=== PATIENT | female | born 1960 | race Caucasian/White ===

== ENCOUNTER 2019-09-07 00:32 | Inpatient (IN) | payer SELFPAY ==
[2019-09-07 00:50] LABS: Actual Bicarbonate (HCO3a) 23.6 mEq/L (22-28); Analyzer IN Cardio ER; Base Excess (BEa) -6.4 mEq/L (-2.0 to +3.0); Calcium, Ionized 1.23 mmol/L (1.12-1.30); Carboxyhemoglobin (COHb) 2.9 gm% (0.0-3.0); O2 Tension (PaO2) 100.3 mmHg (80.0-100.0); Potassium - ABG Lab 3.34 mmol/L (3.70-5.30)
[2019-09-07 00:52] LABS: CO2 Tension 65.8 mmHg (35.0-45.0); pH, Arterial 7.17 (7.35-7.45)
[2019-09-07 00:53] LABS: Puncture Site LRA
[2019-09-07 01:33] LABS: ALT (SGPT) 27 U/L (8-55); AST (SGOT) 44 U/L (5-34); Albumin 4.5 g/dL (3.5-5.0); Alkaline Phosphatase 104 U/L (40-110); Anion Gap 17 mmol/L (10-20); BUN (Urea Nitrogen) 15 mg/dL (9.8-20.1); Bilirubin, Total 0.3 mg/dL (0.2-1.2); Calc. Creatinine Clearance 0 mL/min (70-130); Calcium 9.5 mg/dL (7.8-10.44); Carbon Dioxide 23 mmol/L (22-29); Chloride 105 mmol/L (98-107); Estimated GFR-MDRD 58; Globulin 3.1 g/dL (2.4-3.5); Glucose 203 mg/dL (70-105); Magnesium 2.8 mg/dL (1.6-2.6); Potassium 3.6 mmol/L (3.5-5.1); Protein, Total 7.6 g/dL (6.0-8.3); Sodium 141 mmol/L (136-145)
[2019-09-07] MEDS ORDERED: Furosemide 40 MG TAB ONE (01:34)
[2019-09-07] MEDS ORDERED: Furosemide 40 MG/4 ML VIAL ONE (01:34)
[2019-09-07] MEDS ORDERED: Nitroglycerin 2% Ointment 1 INCH/1 GM Packet ONE (01:34)
[2019-09-07 01:39] LABS: Band 13 % (5-11); Hemoglobin 15.7 g/dL (12.0-16.0); Lymphocytes 18 % (21-51); MDiff Complete? YES; Mean Corpuscular HGB CONC 32.6 g/dL (32.0-36.0); Mean Corpuscular Hemoglobin 31.7 pg (27.0-31.0); Mean Corpuscular Volume 97.2 fL (78.0-98.0); Mean Platelet Volume 7.4 fL (7.4-10.4); Monocytes 5 % (0-10); Neutrophil 64 % (42-75); Platelet Count 319 thou/uL (130-400); RBC Distribution Width 12.2 % (11.5-14.5); Red Blood Cell (RBC) Count 4.95 mill/uL (4.20-5.40); White Blood Cell (WBC) Count 22.1 thou/uL (4.8-10.8)
[2019-09-07 01:54] LABS: CKMB 5.2 ng/mL (0-6.6)
[2019-09-07] MEDS ORDERED: cefTRIAXone\\ROCEPHIN 2 GM VIAL ONE (01:57)
[2019-09-07] MEDS ORDERED: Acetaminophen 325 MG TAB PO PRN (02:42)
[2019-09-07] MEDS ORDERED: Azithromycin 500 MG VIAL ONE (02:43)
--- NOTE | 2019-09-07 03:39 | HP ---
CHIEF COMPLAINT: Shortness of breath. HISTORY OF PRESENT ILLNESS: This patient is a 58-year-old female, who presented to the emergency department. The patient has a history of smoking a pack cigarettes per day. Says she had a heart attack about a year ago or so and was treated primarily at [facility]. She was sent home with 4 or 5 medications and an inhaler, but essentially ran out of money and did not continue on those medications. The patient was in her usual state of health until today when she woke feeling fine, but at some point in the afternoon developed onset of shortness of breath that became more severe to the point that she had to call an ambulance after several hours. On arrival, O2 saturation was 84%. She was in respiratory distress with tripoding. She was given magnesium and Solu-Medrol and started on BiPAP and transported to the hospital. The patient denies any fevers or chills. She denies any chest pains. Denies any ill contacts. Currently, she states she is actually feeling somewhat better than she did on her initial arrival. REVIEW OF SYSTEMS: All other systems reviewed. All were negative, except for those things mentioned in the history of present illness. Specifically, she denies fever. She denies any orthopnea; although, very difficult to get a straight answer on that as the patient frequently does sit sitting up because she is more comfortable and when she is lying, she is on her side rather than on her back, but it does not sound like she has significant orthopnea. PAST MEDICAL HISTORY: She does report having had a heart attack, treated at [facility] about a year ago. Says she was admitted to this hospital about 3 years ago, but has no record of that. She says she has never been admitted for her breathing per se. She does report some obesity. PAST SURGICAL HISTORY: None. FAMILY HISTORY: There is pervasive obesity within the family. Father had a brain tumor. SOCIAL HISTORY: The patient smokes a pack to a pack and half a day and has done so for 40 years. She was a heavy alcohol drinker until about 3 months ago. At that time, her son moved in with her and he has been monitoring her intakes and now reportedly has occasional whiskey with soft drinks. She denies drugs. She is not . She is a full code and her son would be her surrogate decision maker. ALLERGIES: NONE. MEDICATIONS: None. PHYSICAL EXAMINATION: VITAL SIGNS: Blood pressure is 130/90, pulse 96, respirations 22, O2 saturation 99% on BiPAP. Initial vital signs revealed a blood pressure of 141/13 with a pulse of 126. GENERAL APPEARANCE: Age-appropriate female, in no distress. She is obese. She is sitting up in the bed in the emergency department wearing the BiPAP. She is breathing relatively comfortably. Speaking in largely full sentences. HEENT: [place]AY[place]. She has no OP lesions. Dry oral mucosa. NECK: Supple and symmetric. HEART: Her heart is faintly heard over the sound of the apparatus, but no murmurs, gallops, or rubs are noted. LUNGS: Notable for scattered rales. No wheezing. Generally diminished. ABDOMEN: Obese, soft, nontender, and nondistended. Positive bowel sounds. No masses. No organomegaly. EXTREMITIES: Reveal chronic stasis dermatitis with 1 to 2+ pitting brawny edema. Pulses were not palpable. PSYCH: Normal affect and behavior. NEURO: Cranial nerves intact. Cognition intact. No evidence of any focal deficits. LABORATORY DATA: White count is 22.1, hemoglobin 15.7, platelets 319. PH 7.17, pCO2 65.8, and pO2 is 100.3. Sodium 141, potassium 3.6, chloride 25, CO2 23, BUN 15, creatinine 0.99, glucose 203, lactic acid 3.2, calcium 9.5, magnesium 2.8, total bilirubin 0.3, AST 44, ALT 27. Troponin is 0.211. BNP 138.6. Chest x-ray shows evidence of cardiomegaly and pulmonary edema. EKG shows some rightward axis deviation with no ST or T-wave changes. IMPRESSION AND PLAN: 1. Acute respiratory failure with hypoxia and hypercapnia. The patient will be maintained on respiratory support, admitted to [facility]. Pulmonary consult. 2. Congestive heart failure. The patient has evidence of significant peripheral edema and pulmonary edema on chest x-ray with substantial cardiomegaly. The patient has not been on treatment. We will continue with diuresis. Order an echocardiogram, ROOSEVELT inhibitor. 3. Chronic obstructive pulmonary disease exacerbation as manifest by the hypercapnia and acidosis. Continue with nebulizer treatments, Solu-Medrol, respiratory support. Pulmonary consult and antibiotics with Rocephin. 4. History of coronary disease per the patient's history. We will likely need to obtain records from [facility] in order to determine exactly what the scenario was with her cardiac condition. Suspect she was on beta blockers, ROOSEVELT inhibitors, aspirin, statin, and Lasix, although cannot confirm that. We will keep her on aspirin for now. 5. Leukocytosis secondary to demargination from Solu-Medrol given in the field. 6. Indeterminate troponin, likely [id number] myocardial infarction type 2 secondary to respiratory failure and heart failure exacerbation. We will continue to trend while keeping her on telemetry. 7. Lactic acidosis. The patient has a white count, tachycardia and lactic acidosis. The white count is due to the steroids. The tachycardia was due to some respiratory failure and the lactic acidosis is likely hypoperfusion from hypoxia. There is currently no evidence of specific infection to suggest sepsis. 8. Significant peripheral edema likely secondary to congestive heart failure. Job ID: [id number]
[2019-09-07 03:48] VITALS: BMI 48.5
[2019-09-07 05:11] LABS: Lactic Acid 1.6 mmol/L (0.5-2.2)
[2019-09-07 05:26] LABS: Troponin I 0.387 ng/mL (< 0.028)
[2019-09-07] MEDS: methylPREDNISolone Sod Succ 40 MG VIAL IVP SCH ×3 (05:30→18:22)
[2019-09-07] MEDS: Furosemide 40 MG/4 ML VIAL SLOW IVP SCH ×2 (05:30→14:25)
--- NOTE | 2019-09-07 07:45 | RAD ---
Exam: Chest one view HISTORY:Dyspnea Comparison: None FINDINGS: Cardiac silhouette:Cardiomegaly Aorta: Unremarkable Pulmonary vessels: Normal Costophrenic angles: Clear LUNGS: Diffuse interstitial and patchy alveolar opacities. Pneumothorax: None Osseous abnormalities: None IMPRESSION: 1. Possible congestive heart failure. 2. Superimposed interstitial/alveolar edema or infiltrate cannot be excluded. Continued surveillance is warranted.
[2019-09-07] MEDS ORDERED: Lisinopril 2.5 MG TAB PO SCH (09:00)
[2019-09-07] MEDS: Enoxaparin Sodium 40 MG/0.4 ML SYRINGE SC SCH (09:01)
[2019-09-07] MEDS: Aspirin 81 mg Enteric Coated Tablet PO SCH (09:02)
[2019-09-07 09:11] LABS: Critical Call Chem Troponin I RESULT DECREASING; Troponin I 0.377 ng/mL (< 0.028)
--- NOTE | 2019-09-07 15:24 | CON ---
DATE OF CONSULTATION: HISTORY OF PRESENT ILLNESS: Adrienne Mejias is a 58-year-old female. She is a smoker. She says she has an inhaler at home, but never has to use it. She had the sudden onset of shortness of breath, led to emergent transport to the hospital. She feels like once she started getting oxygen and nebulizer treatments she improved. She was transported on BiPAP apparently. She says she is feeling 100% better. PAST MEDICAL HISTORY: Remarkable for coronary artery disease. SOCIAL HISTORY: She is a pack and a half a day smoker. She has been a daily drinker, just cut back on her drinking. FAMILY HISTORY: Positive for cancer. REVIEW OF SYSTEMS: Otherwise negative. Specifically, she denies fever, chills, sweats, being around anyone who is sick. PHYSICAL EXAMINATION: VITAL SIGNS: Heart rate is 90, blood pressure is 167/87, respiratory rate is 20 , and oximetry is 97. HEENT: Pupils are equal. Sclerae are anicteric. NECK: Supple. No lymphadenopathy. LUNGS: Distant and clear. HEART: Regular rhythm. S1 and S2 are normal. ABDOMEN: Soft and nontender. EXTREMITIES: Without clubbing, cyanosis, or edema. LABORATORY DATA: White count 22.1, hemoglobin 15.7, and platelets 319. Sodium 141, potassium 3.6, chloride 105, bicarb 23, BUN 15, and creatinine 0.99. IMPRESSION: Probable chronic obstructive pulmonary disease exacerbation. Chest x-ray did not show any masses or infiltrates. Rapid improvement and rapid onset are concerning for a coronary ischemic event, especially with her history of ongoing tobacco in spite of having a heart attack 3 years ago. Chest x-ray is very underpenetrated. It is hard to say whether or not there is a component of pulmonary edema. I would recommend repeating a chest x-ray in the morning. The history of expulsive onset is more worrisome for coronary event, but a rapid improvement with nebulized treatments of BiPAP argues in the favor of lung problems. I will be happy to follow the other physicians caring for Ms. Mejias. An echocardiogram would be helpful. Surprisingly, her BNP was 138, but that may not have been dramatically elevated. This was related to transient coronary ischemia. She does appear to be a diabetic. We will follow. Check a chest x-ray in the morning. This is a 50 min consult with greater than 50% of the time spent on the unit for coordination of care. Job ID: [id number] MTDD
[2019-09-07] MEDS: Lisinopril 10 MG TAB PO SCH (20:28)
[2019-09-07] MEDS: hydrALAZINE 25 MG TAB PO SCH (20:29)
[2019-09-07] MEDS: Metoprolol Tartrate 25 MG TAB PO SCH (20:29)
[2019-09-08] MEDS: methylPREDNISolone Sod Succ 40 MG VIAL IVP SCH ×5 (00:29→23:54)
[2019-09-08] MEDS: cefTRIAXone\\ROCEPHIN 1 GM in Sodium Chloride 0.9% 100 ML IVPB SCH (01:24)
[2019-09-08 03:56] LABS: Anion Gap 16 mmol/L (10-20); BUN (Urea Nitrogen) 18 mg/dL (9.8-20.1); Calc. Creatinine Clearance 144 mL/min (70-130); Calcium 9.8 mg/dL (7.8-10.44); Carbon Dioxide 27 mmol/L (22-29); Chloride 98 mmol/L (98-107); Estimated GFR-MDRD 81; Glucose 162 mg/dL (70-105); Potassium 3.9 mmol/L (3.5-5.1); Sodium 137 mmol/L (136-145)
--- NOTE | 2019-09-08 05:38 | PRG ---
DATE OF SERVICE: 09/08/2019 SUBJECTIVE: Tammie Mejias remains stable. She is on room air. OBJECTIVE: VITAL SIGNS: Blood pressure 156/64, heart rate 66, respiratory rate 20. LUNGS: Unchanged. HEART: Unchanged. ABDOMEN: Unchanged. LABORATORY DATA: No new lab today. Her troponin peaked to 0.38. IMPRESSION: Status post sudden onset of respiratory distress. Chest x-ray is under penetrated, was suggestive of pulmonary edema. She has no history of asthma or COPD exacerbations in the past. When she had a heart attack years ago, she said she had shortness of breath , but it came on more gradually. She probably needs to have a cardiac workup prior to discharge. Overall, she appears to be stable. She has not had any fever to suggest this is an infectious process. Job ID: [id number]
[2019-09-08] MEDS: Furosemide 40 MG/4 ML VIAL SLOW IVP SCH ×2 (05:48→18:41)
[2019-09-08 08:27] LABS: #Lymphocytes 1.5 thou/uL (1.20-3.40); #Monocytes 0.4 thou/uL (0.11-0.59); #Neutrophils 10.9 thou/uL (1.40-6.50); %Basophils 0.1 % (0.0-1.0); %Eosinophils 0.1 % (0.0-10.0); %Lymphocytes 11.8 % (21.0-51.0); %Monocytes 3.1 % (0.0-10.0); %Neutrophils 84.9 % (42.0-75.0); Hemoglobin 15.3 g/dL (12.0-16.0); Mean Corpuscular HGB CONC 33.2 g/dL (32.0-36.0); Mean Corpuscular Hemoglobin 31.1 pg (27.0-31.0); Mean Corpuscular Volume 93.8 fL (78.0-98.0); Mean Platelet Volume 7.7 fL (7.4-10.4); Platelet Count 282 thou/uL (130-400); Red Blood Cell (RBC) Count 4.93 mill/uL (4.20-5.40); White Blood Cell (WBC) Count 12.9 thou/uL (4.8-10.8)
--- NOTE | 2019-09-08 08:46 | RAD ---
PORTABLE CHEST: DATE: 09/08/2019. PROVIDED CLINICAL HISTORY: Dyspnea. FINDINGS: Comparison 09/07/2019. Cardiac silhouette remains enlarged. Cardiac silhouette remains enlarged. Pr ominence of the pulmonary vasculature and pulmonary interstitium persists, improved with respect to p rior. No focal consolidation, pleural fluid, or pneumothorax apparent. IMPRESSION: Cardiomegaly and improved changes of congestive failure. POS: BARAK
[2019-09-08] MEDS: hydrALAZINE 25 MG TAB PO SCH ×3 (10:18→22:43)
[2019-09-08] MEDS: Metoprolol Tartrate 25 MG TAB PO SCH ×2 (10:19→22:44)
[2019-09-08] MEDS: Lisinopril 10 MG TAB PO SCH ×2 (10:19→22:43)
--- NOTE | 2019-09-08 10:42 | CON ---
DATE OF CONSULTATION: HISTORY OF PRESENT ILLNESS: The patient is a 58-year-old woman with a history of a myocardial infarction, who presented with acute onset of dyspnea. The patient states that approximately three years ago she was at [facility] and had a myocardial infarction. She did not apparently undergo an invasive evaluation. The patient unfortunately has not been compliant with followup and has not been taking any medications. The patient was in her usual state of health when she became acutely dyspneic. She denied having any chest discomfort. She presented to the emergency room markedly short of breath. PAST MEDICAL HISTORY: myocardial infarction. PAST SURGICAL HISTORY: Hemorrhoidectomy. MEDICATIONS: None. SOCIAL HISTORY: Smokes 1-2 packs per day. ALLERGIES: NO KNOWN DRUG ALLERGIES. REVIEW OF SYSTEMS: Ten-point system is otherwise unremarkable. FAMILY HISTORY: Strong family history of coronary artery disease. PHYSICAL EXAMINATION: GENERAL: Obese woman, in no acute distress. VITAL SIGNS: Blood pressure was 174/92. NECK: Showed no jugular venous distention. LUNGS: Clear to auscultation. HEART: Regular rate and rhythm. Normal S1 and S2 with a 3/6 systolic murmur. ABDOMEN: Nondistended. EXTREMITIES: Showed trace edema. VASCULAR: Radial pulses are 2+. LABORATORY RESULTS: Sodium is 137, potassium 3.9, chloride 98, bicarbonate 27, BUN 18, creatinine 0.74, glucose is 162. Troponin was 0.377. White blood cell count is 12.9, hemoglobin 15.3, hematocrit 40.2, and platelets are 282. Her EKG revealed normal sinus rhythm with Q-waves suggestive of a normal sinus rhythm, right bundle-branch block and Q-waves suggestive of previous anteroseptal infarct. IMPRESSION: 1. Dyspnea, possibly anginal equivalent. 2. Non-Q-wave myocardial infarction. 3. History of myocardial infarction. 4. Hypertension. 5. Obesity. 6. Noncompliance. PLAN: This patient presents with a non Q-wave myocardial infarction. At this time, we would highly recommend she proceed with a cardiac catheterization to evaluate the extent of her coronary artery disease. The patient is unclear whether she wishes to proceed. I have explained the life threatening consequences of her continuing noncompliance. The patient is highly advised to discontinue smoking. We will start the patient on medical therapy and proceed with invasive evaluation if the patient becomes agreeable. Job ID: [id number] [facility]
--- NOTE | 2019-09-08 11:08 | PDOC.HOSPP ---
- Subjective Encounter Date: 09/08/19 Encounter Time: 10:40 Subjective: sob is better no chest pain or palp is sitting on bed - Objective Vital Signs & Weight: Vital Signs (12 hours) Temp Pulse Resp BP Pulse Ox 09/08/19 10:19 178/104 H 09/08/19 10:18 83 178/104 H 09/08/19 07:46 100 09/08/19 07:22 66 16 99 09/08/19 07:20 98.4 F 09/08/19 00:09 90 16 98 Weight Weight 240 lb 4 oz Most Recent Monitor Data Heart Rate from ECG 66 NIBP 178/104 NIBP BP-Mean 128 Respiration from ECG 24 SpO2 98 I&O: 09/07/19 09/08/19 09/09/19 06:59 06:59 06:59 Intake Total 240 500 Output Total 1300 4600 Balance -1060 -4100 Result Diagrams: 09/08/19 07:44 09/08/19 03:17 Hospitalist ROS - Medication Medications: Active Medications Generic Name Dose Route Start Last Admin Trade Name Sheila PRN Reason Stop Dose Admin Albuterol/Ipratropium 3 ml 09/07/19 07:00 09/08/19 07:22 Duoneb NEB 3 ml [id number] SVEN Administration Aspirin 81 mg 09/07/19 09:00 09/07/19 09:02 Ecotrin PO 81 mg DAILY SVEN Administration Enoxaparin Sodium 40 mg 09/07/19 09:00 09/07/19 09:01 Lovenox SC 40 mg 0900 SVEN Administration Furosemide 40 mg 09/07/19 06:00 09/08/19 05:48 Lasix SLOW IVP 40 mg 0600,1400 SVEN Administration Hydralazine HCl 25 mg 09/07/19 21:00 09/08/19 10:18 Apresoline PO 25 mg TID SVEN Administration Ceftriaxone Sodium 1 gm/ 100 mls @ 200 mls/hr 09/08/19 02:00 09/08/19 01:24 Sodium Chloride IVPB 100 mls Q24HR SVEN Administration Lisinopril 10 mg 09/07/19 21:00 09/08/19 10:19 Zestril PO 10 mg BID SVEN Administration Methylprednisolone Sodium Succinate 40 mg 09/07/19 06:00 09/08/19 05:49 Solu-Medrol IVP 40 mg Q6HR SVEN Administration Metoprolol Tartrate 25 mg 09/07/19 21:00 09/08/19 10:19 Lopressor PO 25 mg BID SVEN Administration - Exam General Appearance: awake alert Eye: PERRL, anicteric sclera ENT: no oropharyngeal lesions, moist mucosa Neck: supple, no JVD Heart: RRR, no murmur Respiratory: no wheezes, no rales, rhonchi Gastrointestinal: soft, non-tender, non-distended, normal bowel sounds Extremities: no cyanosis, 1+ LE edema Neurological: cranial nerve grossly intact, no focal deficits Psychiatric: normal affect, A&O x 3 Hosp A/P (1) Acute exacerbation of CHF (congestive heart failure) Code(s): I50.9 - HEART FAILURE, UNSPECIFIED Status: Acute Qualifiers: Heart failure type: combined systolic and diastolic Qualified Code(s): I50.43 - Acute on chronic combined systolic (congestive) and diastolic ( congestive) heart failure (2) Type 2 MN (myocardial infarction) Code(s): I21.A1 - MYOCARDIAL INFARCTION TYPE 2 Status: Acute (3) COPD exacerbation Code(s): J44.1 - CHRONIC OBSTRUCTIVE PULMONARY DISEASE W (ACUTE) EXACERBATION Status: Acute (4) Tobacco abuse Code(s): Z72.0 - TOBACCO USE Status: Chronic (5) Alcohol use Code(s): Z72.89 - OTHER PROBLEMS RELATED TO LIFESTYLE Status: Chronic (6) Obesity Code(s): E66.9 - OBESITY, UNSPECIFIED Status: Chronic Qualifiers: Obesity classification: adult class 3 (BMI >= 40) Body mass index: BMI 45.0 -49.9 (7) HTN (hypertension) Code(s): I10 - ESSENTIAL (PRIMARY) HYPERTENSION Status: Chronic Qualifiers: Hypertension type: essential hypertension Qualified Code(s): I10 - Essential (primary) hypertension (8) Dyslipidemia Code(s): E78.5 - HYPERLIPIDEMIA, UNSPECIFIED Status: Chronic - Plan is on asp, lipitor, lopressor, lisinopril, procardia xl, gentle diuresis. echo shows ef of 45%, normal wall motion for likely cath if she agrees on nebs, steroids, is off bipap is ambulating in room hemostable may tx to telemetry
[2019-09-08] MEDS: Aspirin 81 mg Enteric Coated Tablet PO SCH (12:00)
[2019-09-08] MEDS: Enoxaparin Sodium 40 MG/0.4 ML SYRINGE SC SCH (12:00)
[2019-09-08] MEDS ORDERED: Heparin 10,000 UNITS/1 ML VIAL ONE (13:12)
[2019-09-08] MEDS ORDERED: hydrALAZINE 20 MG/ML VIAL ONE ×3 (13:12→16:15)
[2019-09-08] MEDS ORDERED: Nitroglycerin 100MG/250ML BOT 0 ML ONE (13:12)
[2019-09-08] MEDS ORDERED: Midazolam HCl 2 mg/2 ml Vial ONE (13:57)
[2019-09-08] MEDS ORDERED: Nitroglycerin 4.9 GM Bottle ONE (13:57)
[2019-09-08] MEDS ORDERED: TICAGRELOR 90 MG TABLET ONE (14:47)
[2019-09-08] MEDS ORDERED: Nitroglycerin 0.4 MG TAB (25 Tab Bottle) SL PRN (14:54)
[2019-09-08] MEDS ORDERED: Morphine 2 MG/ML SYRINGE SLOW IVP PRN (14:54)
[2019-09-08] MEDS ORDERED: Fentanyl 100 MCG/2 ML VIAL ONE ×2 (14:55→16:16)
[2019-09-08] MEDS ORDERED: Sodium Chloride 0.9% 500 ML IV SCH (15:00)
[2019-09-08] MEDS ORDERED: Morphine 2 MG/ML SYRINGE ONE (15:56)
[2019-09-08] MEDS: Atorvastatin Calcium 40 MG TAB PO SCH (22:42)
[2019-09-09] MEDS: cefTRIAXone\\ROCEPHIN 1 GM in Sodium Chloride 0.9% 100 ML IVPB SCH (03:34)
[2019-09-09 04:51] LABS: #Lymphocytes 1.1 thou/uL (1.20-3.40); #Monocytes 0.6 thou/uL (0.11-0.59); #Neutrophils 10.3 thou/uL (1.40-6.50); %Basophils 0.2 % (0.0-1.0); %Monocytes 4.9 % (0.0-10.0); %Neutrophils 85.8 % (42.0-75.0); Hemoglobin 15.4 g/dL (12.0-16.0); Mean Corpuscular HGB CONC 32.4 g/dL (32.0-36.0); Mean Corpuscular Hemoglobin 30.5 pg (27.0-31.0); Mean Corpuscular Volume 94.4 fL (78.0-98.0); Mean Platelet Volume 7.9 fL (7.4-10.4); Platelet Count 316 thou/uL (130-400); RBC Distribution Width 12.3 % (11.5-14.5); Red Blood Cell (RBC) Count 5.03 mill/uL (4.20-5.40)
[2019-09-09 04:58] LABS: Hemoglobin A1c 5.2 % (4.0-6.0)
[2019-09-09] MEDS: Furosemide 40 MG/4 ML VIAL SLOW IVP SCH (05:07)
[2019-09-09] MEDS: methylPREDNISolone Sod Succ 40 MG VIAL IVP SCH (05:07)
[2019-09-09 05:18] LABS: ALT (SGPT) 21 U/L (8-55); AST (SGOT) 16 U/L (5-34); Albumin 4.1 g/dL (3.5-5.0); Alkaline Phosphatase 75 U/L (40-110); Anion Gap 18 mmol/L (10-20); BUN (Urea Nitrogen) 23 mg/dL (9.8-20.1); Bilirubin, Total 0.4 mg/dL (0.2-1.2); Calc. Creatinine Clearance 126 mL/min (70-130); Calcium 9.9 mg/dL (7.8-10.44); Carbon Dioxide 22 mmol/L (22-29); Chloride 101 mmol/L (98-107); Estimated GFR-MDRD 71; Globulin 3.2 g/dL (2.4-3.5); Glucose 159 mg/dL (70-105); Protein, Total 7.3 g/dL (6.0-8.3); Sodium 137 mmol/L (136-145)
[2019-09-09] MEDS ORDERED: Aspirin Chewable 81 MG TAB PO SCH (09:00)
[2019-09-09] MEDS ORDERED: Furosemide 40 MG TAB PO SCH (09:00)
--- NOTE | 2019-09-09 09:22 | EKG ---
Test Reason : Blood Pressure : / mmHG Vent. Rate : 119 BPM Atrial Rate : 119 BPM P-R Int : 160 ms QRS Dur : 102 ms QT Int : 338 ms P-R-T Axes : 025 113 047 degrees QTc Int : 475 ms Sinus tachycardia Possible Left atrial enlargement Right axis deviation Incomplete right bundle branch block Anterior infarct , age undetermined Abnormal ECG Confirmed by MISSY YS ([id number]), book editor TERRI GUAJARDO ([id number]) on 09/09/2019 9:22:06 AM Referred By: Confirmed By:MISSY SY
[2019-09-09] MEDS: Clopidogrel Bisulfate 75 MG TAB PO SCH (09:29)
[2019-09-09] MEDS: Metoprolol Tartrate 25 MG TAB PO SCH ×2 (09:29→20:59)
[2019-09-09] MEDS: hydrALAZINE 25 MG TAB PO SCH (09:29)
[2019-09-09] MEDS: Cefdinir 300 MG CAP PO SCH ×2 (09:29→21:00)
[2019-09-09] MEDS: predniSONE 20 MG TAB PO SCH (09:29)
[2019-09-09] MEDS: Enoxaparin Sodium 40 MG/0.4 ML SYRINGE SC SCH (09:30)
[2019-09-09] MEDS: Lisinopril 10 MG TAB PO SCH (09:30)
[2019-09-09] MEDS: Aspirin 81 mg Enteric Coated Tablet PO SCH (09:30)
--- NOTE | 2019-09-09 10:55 | PDOC.HOSPP ---
- Subjective Encounter Date: 09/09/19 Encounter Time: 09:15 Subjective: no chest pain or sob is off oxygen wants to eat solid food and nicotine patch is ambulating in room - Objective Vital Signs & Weight: Vital Signs (12 hours) Temp Pulse Resp BP Pulse Ox 09/09/19 09:06 97.7 F 69 16 187/84 H 95 09/09/19 06:48 72 12 09/09/19 03:39 98 F 66 18 145/72 H 93 L 09/09/19 00:46 66 16 97 09/09/19 00:00 97.8 F 66 20 138/63 95 Weight Weight 235 lb Most Recent Monitor Data Heart Rate from ECG 58 NIBP 155/77 NIBP BP-Mean 103 Respiration from ECG 26 SpO2 95 I&O: 09/08/19 09/09/19 09/10/19 06:59 06:59 06:59 Intake Total 500 Output Total 4600 Balance -4100 Result Diagrams: 09/09/19 04:29 09/09/19 04:29 Hospitalist ROS - Medication Medications: Active Medications Generic Name Dose Route Start Last Admin Trade Name Freq PRN Reason Stop Dose Admin Albuterol/Ipratropium 3 ml 09/07/19 07:00 09/09/19 06:48 Duoneb NEB 3 ml [id number] SVEN Administration Aspirin 81 mg 09/07/19 09:00 09/09/19 09:30 Ecotrin PO 81 mg DAILY SVEN Administration Atorvastatin Calcium 40 mg 09/08/19 21:00 09/08/19 22:42 Lipitor PO 40 mg HS SVEN Administration Cefdinir 300 mg 09/09/19 09:00 09/09/19 09:29 Omnicef PO 300 mg BID SVEN Administration Clopidogrel Bisulfate 75 mg 09/09/19 09:00 09/09/19 09:29 Plavix PO 75 mg DAILY SVEN Administration Enoxaparin Sodium 40 mg 09/07/19 09:00 09/09/19 09:30 Lovenox SC 40 mg 0900 SVEN Administration Furosemide 40 mg 09/09/19 09:00 09/09/19 09:35 Lasix PO Not Given DAILY SVEN Hydralazine HCl 25 mg 09/07/19 21:00 09/09/19 09:29 Apresoline PO 25 mg TID SVEN Administration Lisinopril 10 mg 09/07/19 21:00 04/18/20 09:30 Zestril PO 10 mg BID SVEN Administration Metoprolol Tartrate 25 mg 09/07/19 21:00 09/09/19 09:29 Lopressor PO 25 mg BID SVEN Administration Prednisone 20 mg 09/09/19 08:00 09/09/19 09:29 Prednisone PO 20 mg QAM-WM SVEN Administration - Exam General Appearance: awake alert Eye: PERRL, anicteric sclera ENT: no oropharyngeal lesions, moist mucosa Neck: supple, no JVD Heart: RRR, no murmur Respiratory: no wheezes, no rales, rhonchi Gastrointestinal: soft, non-tender, non-distended, normal bowel sounds Extremities: no cyanosis, no edema Neurological: cranial nerve grossly intact, no focal deficits Psychiatric: normal affect, A&O x 3 Hosp A/P (1) CAD (coronary artery disease) Code(s): I25.10 - ATHSCL HEART DISEASE OF [place] CORONARY ARTERY W/O ANG PCTRS Status: Acute Qualifiers: Coronary Disease-Associated Artery/Lesion type: [place] artery [place] vs. transplanted heart: [place] heart (2) Acute exacerbation of CHF (congestive heart failure) Code(s): I50.9 - HEART FAILURE, UNSPECIFIED Status: Acute Qualifiers: Heart failure type: combined systolic and diastolic Qualified Code(s): I50.43 - Acute on chronic combined systolic (congestive) and diastolic ( congestive) heart failure (3) COPD exacerbation Code(s): J44.1 - CHRONIC OBSTRUCTIVE PULMONARY DISEASE W (ACUTE) EXACERBATION Status: Acute (4) Tobacco abuse Code(s): Z72.0 - TOBACCO USE Status: Chronic (5) Alcohol use Code(s): Z72.89 - OTHER PROBLEMS RELATED TO LIFESTYLE Status: Chronic (6) Obesity Code(s): E66.9 - OBESITY, UNSPECIFIED Status: Chronic Qualifiers: Obesity classification: adult class 3 (BMI >= 40) Body mass index: BMI 45.0 -49.9 (7) HTN (hypertension) Code(s): I10 - ESSENTIAL (PRIMARY) HYPERTENSION Status: Chronic Qualifiers: Hypertension type: essential hypertension Qualified Code(s): I10 - Essential (primary) hypertension (8) Dyslipidemia Code(s): E78.5 - HYPERLIPIDEMIA, UNSPECIFIED Status: Chronic - Plan is on asp, plavix, lipitor, lopressor, lisinopril, procardia xl, oral lasix. echo shows ef of 45%, normal wall motion s/p stent to RCA, await cath report. on nebs, steroids is ambulating in room hemostable dc plan in am if cleared by specialists.
[2019-09-09] MEDS ORDERED: Nicotine 21 MG PATCH TD SCH (11:00)
--- NOTE | 2019-09-09 14:43 | PRG ---
DATE OF SERVICE: 09/09/2019 SUBJECTIVE: She is sitting up in a chair. Has no acute complaints. Says she may go home tomorrow. OBJECTIVE: VITAL SIGNS: Temperature is 97.6, pulse 72, respirations 12, O2 saturation 94% on room air, blood pressure 170/81. HEENT: Unremarkable. NECK: No adenopathy or JVD. CHEST: Clear. CARDIAC: S1, S2. Regular. ABDOMEN: Soft. EXTREMITIES: No edema. LABORATORY DATA: White blood cell count 12, hematocrit 47, platelet count 316. Sodium 137, potassium 4, BUN 23, creatinine 0.8, glucose 159. ASSESSMENT: 1. Non-Q-wave myocardial infarction. 2. Diastolic heart failure. 3. Systolic heart failure. PLAN: Cardiac catheterization is planned. She seems stable from a Pulmonary standpoint. I had reviewed the orders. She has been switched over to oral antibiotics. We will check her again on Wednesday. Job ID: [id number]
[2019-09-09] MEDS: Atorvastatin Calcium 40 MG TAB PO SCH (20:58)
[2019-09-09] MEDS: Lisinopril 20 MG TAB PO SCH (20:59)
[2019-09-10] MEDS ORDERED: Lidocaine 2% Viscous Solution 10 ML, Aluminum & Magnesium Hydroxide 30 ML SSW SCH (01:30)
[2019-09-10 04:54] LABS: #Lymphocytes 2.6 thou/uL (1.20-3.40); #Monocytes 1.3 thou/uL (0.11-0.59); #Neutrophils 7.4 thou/uL (1.40-6.50); %Basophils 0.2 % (0.0-1.0); %Eosinophils 0.1 % (0.0-10.0); %Lymphocytes 23.2 % (21.0-51.0); %Monocytes 11.3 % (0.0-10.0); %Neutrophils 65.2 % (42.0-75.0); Hemoglobin 14.7 g/dL (12.0-16.0); Mean Corpuscular HGB CONC 32.3 g/dL (32.0-36.0); Mean Corpuscular Hemoglobin 30.6 pg (27.0-31.0); Mean Corpuscular Volume 94.8 fL (78.0-98.0); Mean Platelet Volume 7.8 fL (7.4-10.4); Platelet Count 274 thou/uL (130-400); RBC Distribution Width 12.1 % (11.5-14.5); Red Blood Cell (RBC) Count 4.79 mill/uL (4.20-5.40); White Blood Cell (WBC) Count 11.4 thou/uL (4.8-10.8)
[2019-09-10 05:13] LABS: Anion Gap 13 mmol/L (10-20); BUN (Urea Nitrogen) 22 mg/dL (9.8-20.1); Calc. Creatinine Clearance 137 mL/min (70-130); Calcium 9.5 mg/dL (7.8-10.44); Carbon Dioxide 31 mmol/L (22-29); Chloride 97 mmol/L (98-107); Estimated GFR-MDRD 78; Glucose 113 mg/dL (70-105); Potassium 3.7 mmol/L (3.5-5.1); Sodium 137 mmol/L (136-145)
[2019-09-10] MEDS: Enoxaparin Sodium 40 MG/0.4 ML SYRINGE SC SCH (08:34)
[2019-09-10] MEDS: Aspirin 81 mg Enteric Coated Tablet PO SCH (08:35)
[2019-09-10] MEDS: Cefdinir 300 MG CAP PO SCH (08:35)
[2019-09-10] MEDS: Clopidogrel Bisulfate 75 MG TAB PO SCH (08:36)
[2019-09-10] MEDS: Lisinopril 20 MG TAB PO SCH (08:36)
[2019-09-10] MEDS: predniSONE 20 MG TAB PO SCH (08:36)
[2019-09-10] MEDS ORDERED: Nicotine 21 MG PATCH TD SCH (09:00)
[2019-09-10] MEDS: Metoprolol Tartrate 25 MG TAB PO SCH (09:10)
[2019-09-10 15:30] VITALS: BP 163/73; TEMP 97.9
--- NOTE | 2019-09-10 15:50 | DIS ---
DATE OF ADMISSION: 09/07/2019 DATE OF DISCHARGE: 09/10/2019 DISCHARGE DISPOSITION: Home. PRIMARY DISCHARGE DIAGNOSES: Acute respiratory failure with hypoxia on arrival, resolved; chronic obstructive pulmonary disease exacerbation, resolved; coronary artery disease, status post stent placed to RCA; acute congestive heart failure exacerbation with systolic and diastolic dysfunction; tobacco abuse; obesity; alcohol abuse; hypertension; dyslipidemia. PROCEDURES DONE DURING HOSPITALIZATION: Chest x-ray done on the day of admission showed findings suggestive of CHF with pulmonary vascular congestion. Echo with 2D Doppler done showed EF of 45% to 50%, moderately dilated left atrium. There was diastolic dysfunction. Cardiac catheterization, the official report is pending at present. The patient has had placement of drug-eluting stent to RCA. H and H 14 and 45, platelet count 274. Blood gas done on arrival showed a pH of 7.17, pCO2 of 65, pO2 of 100. Discharge BUN and creatinine are 22 and 0.7. Troponin I was indeterminate, peaking up to 0.38. BNP 138. INPATIENT CONSULT: Dr. Malin/Drew for Cardiology, Dr. De Leon for Pulmonology. DISCHARGE MEDICATIONS: 1. Aspirin 81 mg p.o. daily. 2. Plavix 75 mg p.o. daily. 3. Lipitor 40 mg p.o. at bedtime. 4. Omnicef 300 mg p.o. twice daily for another 3 days. 5. DuoNeb q.6 hourly p.r.n. 6. Lisinopril 20 mg twice daily. 7. Lopressor 25 mg twice daily. 8. Nicotine transdermal patch 21 mg daily for another 15 days. 9. Prednisone 20 mg daily for another 2 more days and to discontinue after that. ALLERGIES: NO KNOWN DRUG ALLERGIES. DISCHARGE PLAN: The patient to follow up with her primary care physician in 1 week, Dr. De Leon in 3 to 4 weeks, and Dr. Malin in 2 weeks. BRIEF COURSE DURING HOSPITALIZATION: The patient initially got admitted on the with shortness of breath. She was initially saturating 84%. Her clinical exam and imaging studies were consistent with CHF and COPD exacerbations. She had known history of alcohol and tobacco abuse. Also, the patient had indeterminate troponin. She has had consultation with Dr. Malin for Cardiology. Cardiac catheterization was done on the and the patient has had stent placed to RCA. This was a drug-eluting stent. Official cardiac catheterization report is pending on the [facility]. She was optimized on medications. Prior to discharge, she is on room air and saturating well. She is ambulating and eating well. She is wanting to go home today. She was counseled with regard to staying away from tobacco and alcohol completely. She was also counseled with regard to weight loss with her BMI being 47 at present. She is cleared for discharge by Dr. Malin. Please note, I have seen and examined the patient on the day of discharge. Job ID: [id number]
--- NOTE | 2019-09-11 11:27 | EKG ---
Test Reason : Blood Pressure : / mmHG Vent. Rate : 080 BPM Atrial Rate : 080 BPM P-R Int : 164 ms QRS Dur : 096 ms QT Int : 496 ms P-R-T Axes : 057 085 105 degrees QTc Int : 572 ms Normal sinus rhythm RSR' or QR pattern in V1 suggests right ventricular conduction delay Prolonged QT Possible Left atrial enlargement T wave abnormality, consider anterolateral ischemia Abnormal ECG Confirmed by JOSAFAT OLSON ([id number]) on 09/11/2019 11:26:53 AM Referred By: Confirmed By:JOSAFAT OLSON
--- NOTE | 2019-09-11 11:33 | EKG ---
Test Reason : Blood Pressure : / mmHG Vent. Rate : 056 BPM Atrial Rate : 056 BPM P-R Int : 166 ms QRS Dur : 098 ms QT Int : 574 ms P-R-T Axes : 034 068 125 degrees QTc Int : 553 ms Sinus bradycardia Possible Left atrial enlargement Incomplete right bundle branch block Anterior infarct , age undetermined T wave abnormality, consider lateral ischemia Prolonged QT Abnormal ECG Confirmed by JOSAFAT OLSON ([id number]) on 09/11/2019 11:32:54 AM Referred By: BRANDO Confirmed By:JOSAFAT OLSON
== END 2019-09-10 17:20 | disposition home or self-care (01) | DRG 246 ==
LOC: ERS 00:32 → IMCU/EMU 02:21 → 2NO 09-08 18:07
PROVIDERS: ADMIT Internal Medicine; ATTEND Internal Medicine
PROC: 027035Z Dilation of Coronary Artery, One Artery with Two Drug-eluting Intraluminal Devices, Percutaneous Approach (ICD-10-PCS; principal; 2019-09-08)
PROC: 4A023N7 Measurement of Cardiac Sampling and Pressure, Left Heart, Percutaneous Approach (ICD-10-PCS; 2019-09-08)
PROC: B2111ZZ Fluoroscopy of Multiple Coronary Arteries using Low Osmolar Contrast (ICD-10-PCS; 2019-09-08)
DX: I11.0 Hypertensive heart disease with heart failure (principal); J96.01 Acute respiratory failure with hypoxia; J96.02 Acute respiratory failure with hypercapnia; I21.A1 Myocardial infarction type 2; Z68.42 Body mass index [BMI] 45.0-49.9, adult; J44.1 Chronic obstructive pulmonary disease with (acute) exacerbation; E87.2 Acidosis; E66.9 Obesity, unspecified; I50.43 Acute on chronic combined systolic (congestive) and diastolic (congestive) heart failure; F17.210 Nicotine dependence, cigarettes, uncomplicated; F10.10 Alcohol abuse, uncomplicated; I25.10 Atherosclerotic heart disease of native coronary artery without angina pectoris; E78.5 Hyperlipidemia, unspecified; Z95.5 Presence of coronary angioplasty implant and graft; I25.2 Old myocardial infarction; Z91.14 Patient's other noncompliance with medication regimen
CPT/HCPCS: 36415; 71045; 80048; 80053; 82553; 82805; 83036; 83605; 83735; 83880; 84484; 85025; 85347; 87040; 92928; 93005; 93010; 93306; 93458; 93798; 94640; 94660; 99152; 99153; C1725; C1769; C1874; C1887; C9600; J0360; J0456; J0696; J1644; J1650; J1940; J2250; J2270; J2920; J3010; J3490; J7512; J7620

== ENCOUNTER 2019-10-30 23:33 | Inpatient (IN) | payer OTHER, SELFPAY ==
[2019-10-31 00:02] LABS: #Eosinphils 0.1 thou/uL (0.0-0.7); #Lymphocytes 1.4 thou/uL (1.20-3.40); #Monocytes 1.2 thou/uL (0.11-0.59); %Basophils 0.2 % (0.0-1.0); %Eosinophils 0.4 % (0.0-10.0); %Lymphocytes 8.1 % (21.0-51.0); %Monocytes 6.6 % (0.0-10.0); %Neutrophils 84.8 % (42.0-75.0); Hemoglobin 15.8 g/dL (12.0-16.0); Mean Corpuscular HGB CONC 32.2 g/dL (32.0-36.0); Mean Corpuscular Volume 89.9 fL (78.0-98.0); Mean Platelet Volume 7.3 fL (7.4-10.4); Platelet Count 263 thou/uL (130-400); RBC Distribution Width 12.8 % (11.5-14.5); Red Blood Cell (RBC) Count 5.45 mill/uL (4.20-5.40); White Blood Cell (WBC) Count 17.6 thou/uL (4.8-10.8)
--- NOTE | 2019-10-31 00:06 | RAD ---
XR Chest 1 View Portable HISTORY: Dyspnea COMPARISON: 09/08/2019 FINDINGS: The heart is enlarged. No lobar consolidation, pneumothoraces, elvi pulmonary edema or lar ge effusions are seen. There is mild pulmonary vascular congestion.
[2019-10-31] MEDS ORDERED: cefTRIAXone\\ROCEPHIN 2 GM VIAL ONE (00:11)
[2019-10-31] MEDS ORDERED: Azithromycin 500 MG VIAL ONE (00:11)
[2019-10-31 00:19] LABS: Glucose 117 mg/dL (70-105)
[2019-10-31 00:24] LABS: ALT (SGPT) 19 U/L (8-55); AST (SGOT) 22 U/L (5-34); Albumin 4.5 g/dL (3.5-5.0); Alkaline Phosphatase 86 U/L (40-110); Anion Gap 15 mmol/L (10-20); BUN (Urea Nitrogen) 16 mg/dL (9.8-20.1); Bilirubin, Total 0.3 mg/dL (0.2-1.2); Calc. Creatinine Clearance 0 mL/min (70-130); Carbon Dioxide 25 mmol/L (22-29); Chloride 104 mmol/L (98-107); Estimated GFR-MDRD 61; Globulin 3.4 g/dL (2.4-3.5); Potassium 4.1 mmol/L (3.5-5.1); Protein, Total 7.9 g/dL (6.0-8.3); Sodium 140 mmol/L (136-145)
[2019-10-31 00:45] LABS: CKMB 3.3 ng/mL (0-6.6)
[2019-10-31] MEDS ORDERED: Aspirin Chewable 81 MG TAB ONE (00:52)
[2019-10-31] MEDS ORDERED: Nitroglycerin 0.4 MG TAB (25 Tab Bottle) SL PRN (01:13)
[2019-10-31] MEDS ORDERED: Enoxaparin Sodium 100 MG/ML SYRINGE ONE (01:15)
--- NOTE | 2019-10-31 02:12 | PDOC.EVN ---
Event Note - Event Note Event Note: [id number] HP dicated
[2019-10-31 04:54] LABS: #Eosinphils 0.1 thou/uL (0.0-0.7); #Lymphocytes 2.6 thou/uL (1.20-3.40); #Monocytes 0.9 thou/uL (0.11-0.59); #Neutrophils 8.4 thou/uL (1.40-6.50); %Basophils 0.1 % (0.0-1.0); %Eosinophils 0.4 % (0.0-10.0); %Lymphocytes 21.7 % (21.0-51.0); %Monocytes 7.4 % (0.0-10.0); %Neutrophils 70.4 % (42.0-75.0); Hemoglobin 13.9 g/dL (12.0-16.0); Mean Corpuscular HGB CONC 32.2 g/dL (32.0-36.0); Mean Corpuscular Hemoglobin 28.9 pg (27.0-31.0); Mean Corpuscular Volume 89.8 fL (78.0-98.0); Mean Platelet Volume 7.3 fL (7.4-10.4); Platelet Count 247 thou/uL (130-400); RBC Distribution Width 12.8 % (11.5-14.5); Red Blood Cell (RBC) Count 4.82 mill/uL (4.20-5.40); White Blood Cell (WBC) Count 11.9 thou/uL (4.8-10.8)
[2019-10-31 05:14] LABS: Troponin I 0.261 ng/mL (< 0.028)
--- NOTE | 2019-10-31 05:22 | HP ---
CHIEF COMPLAINT: Shortness of breath. HISTORY OF PRESENT ILLNESS: Ms. Mejias is a 58-year-old female with a past medical history of congestive heart failure, COPD, myocardial infarction, cigarette smoker among others, was brought to the emergency room with shortness of breath and cough that has been going on for the last few days, worse today. The patient was in respiratory distress. As per EMS, patient was hypertensive with systolic 220, given nitroglycerin paste and sublingual nitroglycerin. The patient also was placed on BiPAP. The patient has chronic leg swelling and wound on the lateral right castle for about a week. She has been putting hydrogen peroxide on it. There has been purulent material coming out of it. In the emergency room, patient was placed on BiPAP and workup showed elevated BNP. Chest x-ray shows pulmonary vascular congestion. The troponin is elevated at 0.15, but it had been high in the past, during the last admission back in August was 0.3. The patient was given aspirin and given one dose of Lovenox. Also, WBC count was elevated, but the patient denies fever. Septic workup, and IV antibiotics were given in the emergency room. COVID swab was done in the emergency room. The patient is being admitted to hospital for further management. PAST MEDICAL HISTORY: 1. Myocardial infarction. 2. Chronic obstructive pulmonary disease. 3. Congestive heart failure. PAST SURGICAL HISTORY: Reviewed and not pertinent. SOCIAL HISTORY: Denies alcohol drinking. She smokes cigarettes one pack per day. FAMILY HISTORY: Reviewed and noncontributory. HOME MEDICATIONS: Please see home medication reconciliation form for updated medications. ALLERGIES: NO KNOWN ALLERGIES. PHYSICAL EXAMINATION: GENERAL: The patient is awake, in moderate respiratory distress, orthopnea, on BiPAP. VITAL SIGNS: Blood pressure 161/64, respiratory rate is 24, temperature 98.6, oxygen saturation 99% on CPAP. HEAD AND NECK: Normocephalic. CHEST: Coarse bilateral breath sounds, bilateral crackles. HEART: S1, S2. Regular. ABDOMEN: Obese, soft. Bowel sounds present. NEUROLOGIC: Awake, alert, moving extremities. EXTREMITIES: Lower, there is 2+ pitting edema in both extremities. There is an 8 x 4 shallow ulcerative lesion on the lateral right lower extremity with surrounding erythema. GENITOURINARY: No suprapubic tenderness. No flank tenderness. PSYCH: Awake and alert. LABS: As mentioned above in the history of present illness. An EKG shows sinus rhythm with nonspecific ST changes. Chest x-ray shows pulmonary vascular congestion. ASSESSMENT: 1. Acute exacerbation of congestive heart failure, diastolic. 2. Elevated troponin? acute coronary syndrome, the patient's troponin back in August was 0.3. 3. Cellulitis of the lower extremity. 4. History of myocardial infarction. 5. Chronic obstructive pulmonary disease. 6. Cigarette smoker. PLAN: 1. Admit to IMCU. 2. Continue with CPAP/BiPAP therapy. 3. IV diuresis. 4. IV antibiotic. 5. Serial troponins. 6. Consult Cardiology in a.m. for evaluation and further recommendations. 7. Reconcile home medications. 8. DVT prophylaxis as appropriate. 9. Expected length of stay, 2 midnights or more. Job ID: [id number]
[2019-10-31] MEDS: Furosemide 40 MG/4 ML VIAL SLOW IVP SCH ×2 (05:45→13:23)
[2019-10-31 06:07] VITALS: BMI 50.1
[2019-10-31] MEDS: Aspirin 325 MG TAB PO SCH (07:54)
[2019-10-31] MEDS ORDERED: Enoxaparin Sodium 40 MG/0.4 ML SYRINGE SC SCH ×3 (09:00→10:00)
[2019-10-31] MEDS ORDERED: Lisinopril 2.5 MG TAB PO SCH ×2 (09:00→09:40)
[2019-10-31] MEDS ORDERED: Doxycycline 100 MG in Syringe 0 ML IVPB SCH (09:00)
[2019-10-31] MEDS ORDERED: Clopidogrel Bisulfate 300 MG TAB PO SCH (09:45)
[2019-10-31] MEDS ORDERED: Lisinopril 5 MG TAB PO SCH (10:00)
--- NOTE | 2019-10-31 10:24 | CON ---
DATE OF CONSULTATION: 10/31/2019 PRIMARY RHIT: Chandra Malin MD REASON FOR REQUEST: Congestive heart failure. HISTORY OF PRESENT ILLNESS: Ms. Mejias states that she became short of breath yesterday, fairly abruptly, became progressively more short of breath, came to the emergency room, found to be in congestive heart failure. She has been admitted for further therapy. The patient has had increasing amounts of lower extremity swelling. The patient did not have chest pain or pressure. The patient has received intravenous Lasix, received one dose of full-dose Lovenox and is feeling better now. PAST HISTORY: The patient was here in August. She underwent cardiac catheterization by Dr. Malin and was found to have a stenosis in a small diameter right coronary artery. Dr. Russell placed a stent. It was a drug-coated stent. It was a small diameter 2.25 mm Synergy. The patient did well following that up until the current episode. MEDICATIONS: She says, "I don't really know what my medicines are. There is not a lot of them." She is taking aspirin she said, but otherwise she cannot tell me her medicines. REVIEW OF SYSTEMS: CONSTITUTIONAL: Positive for cough. Negative for fever. VISION: No changes. HEARING: No changes. PULMONARY: Positive for shortness of breath. CARDIAC: No chest pain. GASTROINTESTINAL: No nausea, vomiting, or diarrhea. SKIN: No rashes. EXTREMITIES: Severe edema. FAMILY HISTORY: Noncontributory. PHYSICAL EXAMINATION: GENERAL: This is a pleasant patient, resting comfortably. VITAL SIGNS: Her blood pressure is 119/54, pulse 60. LUNGS: Clear anteriorly. Posteriorly, she has some rales. She also has rhonchi. CARDIAC: No significant murmur, rub, or gallop. Heart sounds are somewhat distant. ABDOMEN: Obese and nontender. EXTREMITIES: Warm and dry. No clubbing or cyanosis. There is eexxablh-ut-kypfig edema. The extremities are warm. It looks like there is probably some cellulitis. PERTINENT LABORATORY DATA: The peak troponin of 0.261, probably demand ischemia. Type 2 non-ST elevation infarction. BNP 368. Chest x-ray looks like pulmonary vascular congestion. EKG showed no acute changes. ASSESSMENT: 1. Underlying coronary artery disease. 2. Congestive heart failure, systolic and diastolic mixed, ejection fraction is 45% to 50% on previous admission. 3. The patient is unsure about her medicines. 4. Continues to smoke. She said "half pack cigarettes per day.". PLAN: 1. Re-loaded with Plavix as she is not completely able to tell me in case she is not actually taking it. 2. Continue aspirin. 3. Continue Lasix. 4. Potassium. 5. Resume ROOSEVELT inhibitors. 6. Continue statins. 7. She will likely be in the hospital a couple of nights. 8. COVID test is being done as a precaution. 9. Basic metabolic panel scheduled for tomorrow. Job ID: [id number]
[2019-10-31] MEDS ORDERED: Potassium Chloride 20 MEQ TAB PO SCH ×2 (12:00→18:00)
[2019-10-31] MEDS ORDERED: Ondansetron PF 4 MG/2 ML Vial IVP PRN (19:22)
[2019-10-31] MEDS ORDERED: Ondansetron ODT 4 MG TAB PO PRN (19:22)
[2019-10-31] MEDS ORDERED: Acetaminophen 325 MG TAB PO PRN (19:22)
[2019-10-31] MEDS ORDERED: Calcium Carbonate 500 MG ChewTAB PO PRN (19:22)
[2019-10-31] MEDS: Hydrocortisone 1% Cream 30 GM TUBE TOP SCH (20:08)
[2019-10-31] MEDS: Famotidine 20 MG TAB PO SCH (20:08)
[2019-10-31] MEDS: Enoxaparin Sodium 40 MG/0.4 ML SYRINGE SC SCH (20:09)
[2019-10-31] MEDS: Metoprolol Tartrate 25 MG TAB PO SCH (20:09)
[2019-10-31] MEDS: Atorvastatin Calcium 40 MG TAB PO SCH (20:09)
[2019-11-01 04:20] LABS: #Basophils 0.1 thou/uL (0.0-0.2); #Eosinphils 0.3 thou/uL (0.0-0.7); #Lymphocytes 2.3 thou/uL (1.20-3.40); #Monocytes 0.8 thou/uL (0.11-0.59); #Neutrophils 4.2 thou/uL (1.40-6.50); %Eosinophils 3.5 % (0.0-10.0); %Monocytes 10.8 % (0.0-10.0); %Neutrophils 54.7 % (42.0-75.0); Hemoglobin 13.9 g/dL (12.0-16.0); Mean Corpuscular HGB CONC 31.7 g/dL (32.0-36.0); Mean Corpuscular Hemoglobin 28.2 pg (27.0-31.0); Mean Platelet Volume 7.6 fL (7.4-10.4); Platelet Count 243 thou/uL (130-400); RBC Distribution Width 12.9 % (11.5-14.5); Red Blood Cell (RBC) Count 4.94 mill/uL (4.20-5.40); White Blood Cell (WBC) Count 7.6 thou/uL (4.8-10.8)
[2019-11-01 04:41] LABS: Anion Gap 13 mmol/L (10-20); BUN (Urea Nitrogen) 15 mg/dL (9.8-20.1); Calc. Creatinine Clearance 158 mL/min (70-130); Carbon Dioxide 24 mmol/L (22-29); Cardiac Risk 4.8 (Less than 4.5); Chloride 103 mmol/L (98-107); Cholesterol 182 mg/dl (< 200 Desired); Estimated GFR-MDRD 86; Glucose 116 mg/dL (70-105); HDL Cholesterol 38 mg/dL (>60 Neg Risk); LDL Cholesterol, Calculated 106 mg/dL; Magnesium 1.9 mg/dL (1.6-2.6); Potassium 4.7 mmol/L (3.5-5.1); Sodium 135 mmol/L (136-145); Triglycerides 190 mg/dL (Less than 150)
[2019-11-01 05:06] LABS: CKMB 4.6 ng/mL (0-6.6)
[2019-11-01] MEDS: Furosemide 40 MG/4 ML VIAL SLOW IVP SCH ×2 (06:17→14:31)
[2019-11-01] MEDS ORDERED: Lisinopril 5 MG TAB PO SCH (09:00)
[2019-11-01] MEDS: Enoxaparin Sodium 40 MG/0.4 ML SYRINGE SC SCH ×2 (09:35→21:20)
[2019-11-01] MEDS: Famotidine 20 MG TAB PO SCH ×2 (09:35→21:16)
[2019-11-01] MEDS: Metoprolol Tartrate 25 MG TAB PO SCH ×2 (09:36→21:19)
[2019-11-01] MEDS: Clopidogrel Bisulfate 75 MG TAB PO SCH (09:37)
[2019-11-01] MEDS: Aspirin 325 MG TAB PO SCH (09:37)
[2019-11-01] MEDS: Hydrocortisone 1% Cream 30 GM TUBE TOP SCH ×2 (11:10→21:21)
--- NOTE | 2019-11-01 17:18 | PDOC.HOSPP ---
- Subjective Encounter Date: 11/01/19 Encounter Time: 16:30 Subjective: Patient seen and examined for CHF. No CP. SOB improving. No fever or chills. No new complaints. No overnight events - Objective Vital Signs & Weight: Vital Signs (12 hours) Pulse BP Pulse Ox 11/01/19 09:35 67 138/68 11/01/19 08:00 98 Weight Weight 248 lb 1.6 oz Most Recent Monitor Data Heart Rate from ECG 59 NIBP 132/73 NIBP BP-Mean 92 Respiration from ECG 19 SpO2 95 I&O: 10/31/19 11/01/19 11/02/19 06:59 06:59 06:59 Intake Total 2029 Output Total 3350 2600 Balance -1320 -2600 Result Diagrams: 11/01/19 03:55 11/01/19 03:55 Radiology Reviewed by me: Yes (CXR - CHF) EKG Reviewed by me: Yes (Tele SR) Hospitalist ROS - Review of Systems Respiratory: reports: SOB with excertion. denies: cough, dry, shortness of breath, hemoptysis, pleuritic pain, sputum, wheezing, other Cardiovascular: reports: edema. denies: chest pain, palpitations, orthopnea, paroxysmal noc. dyspnea, light headedness, other - Medication Medications: Active Medications Generic Name Dose Route Start Last Admin Trade Name Freq PRN Reason Stop Dose Admin Atorvastatin Calcium 40 mg 10/31/19 21:00 10/31/19 20:09 Lipitor PO 40 mg HS SVEN Administration Clopidogrel Bisulfate 75 mg 11/01/19 09:00 11/01/19 09:37 Plavix PO 75 mg DAILY SVEN Administration Enoxaparin Sodium 40 mg 10/31/19 21:00 11/01/19 09:35 Lovenox SC 40 mg 0900,2100 SVEN Administration Famotidine 20 mg 10/31/19 21:00 11/01/19 09:35 Pepcid PO 20 mg BID SVEN Administration Furosemide 40 mg 10/31/19 06:00 11/01/19 14:31 Lasix SLOW IVP 40 mg 0600,1400 SVEN Administration Hydrocortisone/Aloe 0 gm 10/31/19 21:00 11/01/19 11:10 Hydrocortisone 1% Cream TOP Not Given BID SVEN Metoprolol Tartrate 25 mg 10/31/19 21:00 11/01/19 09:36 Lopressor PO 25 mg BID SVEN Administration Sodium Chloride 10 ml 10/31/19 21:00 11/01/19 09:37 Flush - Normal Saline IVF 10 ml Q12HR SVEN Administration Sodium Chloride 10 ml 10/31/19 09:57 11/01/19 09:37 Flush - Normal Saline IVF 10 ml PRN PRN Administration Saline Flush - Exam General Appearance: NAD (at rest) Heart: RRR, no gallops, no rubs, normal peripheral pulses Respiratory: no wheezes, no rales, normal chest expansion, rhonchi Gastrointestinal: soft, non-tender, non-distended, normal bowel sounds Extremities: no cyanosis, no clubbing Extremities - other findings: B/L LE edema, no calf tenderness Neurological: no new deficit Psychiatric: normal affect, A&O x 3 Hosp A/P - Plan DVT proph w/lovenox Acute on chronic systolic/diastolic HF exacerbation CAD with recent RCA stent RLE Cellulitis Morbid obesity BMI 50.1 COPD CKD 2 Hyponatremia PLAN: Cont IV Lasix Add fluid restriction Cont BETHANY Cont Metoprolol Cont Lisinopril AM labs Daily weights Change Doxycycline to PO Add Omnicef Counselled on CHF Cont other meds as above
[2019-11-01] MEDS: Lisinopril 10 MG TAB PO SCH (21:16)
[2019-11-01] MEDS: Cefdinir 300 MG CAP PO SCH (21:16)
[2019-11-01] MEDS: Atorvastatin Calcium 40 MG TAB PO SCH (21:16)
[2019-11-01] MEDS: Doxycycline 100 MG CAP PO SCH (21:16)
[2019-11-02 03:40] LABS: #Basophils 0.1 thou/uL (0.0-0.2); #Eosinphils 0.4 thou/uL (0.0-0.7); #Lymphocytes 2.6 thou/uL (1.20-3.40); #Neutrophils 4.5 thou/uL (1.40-6.50); %Basophils 0.6 % (0.0-1.0); %Eosinophils 4.3 % (0.0-10.0); %Lymphocytes 30.2 % (21.0-51.0); %Neutrophils 52.9 % (42.0-75.0); Hemoglobin 14.4 g/dL (12.0-16.0); Mean Corpuscular HGB CONC 31.6 g/dL (32.0-36.0); Mean Corpuscular Hemoglobin 27.9 pg (27.0-31.0); Mean Corpuscular Volume 88.3 fL (78.0-98.0); Mean Platelet Volume 7.7 fL (7.4-10.4); Platelet Count 279 thou/uL (130-400); Red Blood Cell (RBC) Count 5.17 mill/uL (4.20-5.40); White Blood Cell (WBC) Count 8.5 thou/uL (4.8-10.8)
[2019-11-02 04:03] LABS: Anion Gap 13 mmol/L (10-20); BUN (Urea Nitrogen) 17 mg/dL (9.8-20.1); Calc. Creatinine Clearance 133 mL/min (70-130); Calcium 10.4 mg/dL (7.8-10.44); Carbon Dioxide 29 mmol/L (22-29); Chloride 100 mmol/L (98-107); Estimated GFR-MDRD 71; Glucose 106 mg/dL (70-105); Potassium 4.6 mmol/L (3.5-5.1); Sodium 137 mmol/L (136-145)
[2019-11-02] MEDS: Furosemide 40 MG/4 ML VIAL SLOW IVP SCH ×2 (06:19→14:01)
[2019-11-02] MEDS: Doxycycline 100 MG CAP PO SCH ×2 (08:50→20:44)
[2019-11-02] MEDS: Saccharomyces boulardii 250 MG CAP PO SCH (08:51)
[2019-11-02] MEDS: Famotidine 20 MG TAB PO SCH ×2 (08:51→20:44)
[2019-11-02] MEDS: Cefdinir 300 MG CAP PO SCH ×2 (08:51→20:44)
[2019-11-02] MEDS: Lisinopril 10 MG TAB PO SCH ×2 (08:51→20:45)
[2019-11-02] MEDS: Metoprolol Tartrate 25 MG TAB PO SCH ×2 (08:51→20:45)
[2019-11-02] MEDS: Enoxaparin Sodium 40 MG/0.4 ML SYRINGE SC SCH ×2 (08:52→20:46)
[2019-11-02] MEDS: Aspirin Chewable 81 MG TAB PO SCH (08:52)
[2019-11-02] MEDS: Clopidogrel Bisulfate 75 MG TAB PO SCH (08:52)
[2019-11-02] MEDS: Hydrocortisone 1% Cream 30 GM TUBE TOP SCH ×2 (08:59→20:47)
--- NOTE | 2019-11-02 17:36 | PDOC.HOSPP ---
- Subjective Encounter Date: 11/02/19 Encounter Time: 08:00 Subjective: Pt seen for followup re: CHF exacerbation. Feels better today. - Objective Vital Signs & Weight: Vital Signs (12 hours) Temp Pulse Resp BP BP Pulse Ox 11/02/19 15:41 98.3 F 55 L 14 126/58 L 93 L 11/02/19 11:25 97.8 F 55 L 18 123/58 L 94 L 11/02/19 08:51 140/72 11/02/19 07:49 97.7 F 61 14 127/61 96 Weight Weight 245 lb 4.8 oz Most Recent Monitor Data Heart Rate from ECG 58 NIBP 137/68 NIBP BP-Mean 91 Respiration from ECG 19 SpO2 95 I&O: 11/01/19 11/02/19 11/03/19 06:59 06:59 06:59 Intake Total 2030 Output Total 3350 2600 Balance -1320 -2600 Result Diagrams: 11/02/19 03:12 11/02/19 03:12 Additional Labs: Labs and MARs reviewed by me EKG Reviewed by me: Yes (Tele: NSR) Hospitalist ROS - Review of Systems Respiratory: reports: SOB with excertion. denies: cough, shortness of breath, pleuritic pain, wheezing Cardiovascular: reports: orthopnea. denies: chest pain, palpitations, paroxysmal noc. dyspnea, edema, light headedness Gastrointestinal: denies: nausea, vomiting, abdominal pain, diarrhea, constipation, melena, hematochezia Genitourinary: denies: dysuria, frequency, incontinence, hematuria, retention Skin: denies: rash, lesions, david, bruising - Medication Medications: Active Medications Generic Name Dose Route Start Last Admin Trade Name Freq PRN Reason Stop Dose Admin Aspirin 81 mg 11/02/19 09:00 11/02/19 08:52 Aspirin Chewable PO 81 mg DAILY SVEN Administration Atorvastatin Calcium 40 mg 10/31/19 21:00 11/01/19 21:16 Lipitor PO 40 mg HS SVEN Administration Cefdinir 300 mg 11/01/19 21:00 11/02/19 08:51 Omnicef PO 300 mg BID SVEN Administration Clopidogrel Bisulfate 75 mg 11/01/19 09:00 11/02/19 08:52 Plavix PO 75 mg DAILY SVEN Administration Doxycycline Hyclate 100 mg 11/01/19 21:00 11/02/19 08:50 Vibramycin PO 100 mg BID SVEN Administration Enoxaparin Sodium 40 mg 10/31/19 21:00 11/02/19 08:52 Lovenox SC 40 mg 0900,2100 SVEN Administration Famotidine 20 mg 10/31/19 21:00 11/02/19 08:51 Pepcid PO 20 mg BID SVEN Administration Furosemide 40 mg 10/31/19 06:00 11/02/19 14:01 Lasix SLOW IVP 40 mg 0600,1400 SVEN Administration Hydrocortisone/Aloe 0 gm 10/31/19 21:00 11/02/19 08:59 Hydrocortisone 1% Cream TOP 1 applic BID SVEN Administration Lisinopril 10 mg 11/01/19 21:00 11/02/19 08:51 Zestril PO 10 mg BID SVEN Administration Metoprolol Tartrate 25 mg 10/31/19 21:00 11/02/19 08:51 Lopressor PO 25 mg BID SVEN Administration Saccharomyces Boulardii 250 mg 11/02/19 09:00 11/02/19 08:51 Florastor PO 250 mg DAILY SVEN Administration Sodium Chloride 10 ml 10/31/19 21:00 11/02/19 09:00 Flush - Normal Saline IVF 10 ml Q12HR SVEN Administration Sodium Chloride 10 ml 10/31/19 09:57 11/02/19 14:04 Flush - Normal Saline IVF 10 ml PRN PRN Administration Saline Flush - Exam General Appearance: awake alert Eye: anicteric sclera ENT: no oropharyngeal lesions, moist mucosa Neck: supple, symmetric, no thyromegaly, no lymphadenopathy Heart: RRR, no gallops, no rubs, normal peripheral pulses Respiratory: no wheezes, no ronchi, normal chest expansion, rales Gastrointestinal: soft, non-tender, non-distended, normal bowel sounds Extremities: 2+ LE edema Psychiatric: normal affect, normal behavior Hosp A/P - Plan ASSESSMENT: Acute on chronic systolic/diastolic HF exacerbation NYHA Class 3 CAD RLE Cellulitis Morbid obesity COPD CKD 2 Hyponatremia PLAN: Cont IV furosemide Continue fluid restriction Continue Plavix and aspirin (recent stent) HTN controlled Change Doxycycline to PO Continue Omnicef
[2019-11-02] MEDS: Atorvastatin Calcium 40 MG TAB PO SCH (20:44)
[2019-11-03 04:23] LABS: Anion Gap 13 mmol/L (10-20); BUN (Urea Nitrogen) 14 mg/dL (9.8-20.1); Calc. Creatinine Clearance 138 mL/min (70-130); Calcium 10.1 mg/dL (7.8-10.44); Carbon Dioxide 28 mmol/L (22-29); Chloride 100 mmol/L (98-107); Estimated GFR-MDRD 75; Glucose 156 mg/dL (70-105); Potassium 3.7 mmol/L (3.5-5.1); Sodium 137 mmol/L (136-145)
[2019-11-03] MEDS: Furosemide 40 MG/4 ML VIAL SLOW IVP SCH (06:16)
[2019-11-03] MEDS: Aspirin Chewable 81 MG TAB PO SCH (09:21)
[2019-11-03] MEDS: Doxycycline 100 MG CAP PO SCH (09:21)
[2019-11-03] MEDS: Enoxaparin Sodium 40 MG/0.4 ML SYRINGE SC SCH (09:21)
[2019-11-03] MEDS: Clopidogrel Bisulfate 75 MG TAB PO SCH (09:21)
[2019-11-03] MEDS: Saccharomyces boulardii 250 MG CAP PO SCH (09:21)
[2019-11-03] MEDS: Cefdinir 300 MG CAP PO SCH (09:21)
[2019-11-03] MEDS: Famotidine 20 MG TAB PO SCH (09:22)
[2019-11-03] MEDS: Lisinopril 10 MG TAB PO SCH (09:22)
[2019-11-03] MEDS: Metoprolol Tartrate 25 MG TAB PO SCH (09:22)
[2019-11-03] MEDS: Hydrocortisone 1% Cream 30 GM TUBE TOP SCH (09:24)
[2019-11-03 12:24] VITALS: BP 134/62; TEMP 98.2
--- NOTE | 2019-11-04 03:43 | DIS ---
DATE OF ADMISSION: 10/31/2019 DATE OF DISCHARGE: 11/03/2019 PRIMARY CARE PROVIDER: [facility] in [place]. DISCHARGE DIAGNOSES: 1. Iskeg-nb-xlgxzsq combined systolic and diastolic congestive heart failure, [place] Heart Association class III. 2. Hyponatremia. 3. Hypertriglyceridemia. 4. COVID-19 ruled out. 5. Right lower extremity cellulitis. CONDITION OF PATIENT ON THE DAY OF DISCHARGE: Stable. I assessed Ms. Mejias on the day of discharge. She denies any chest pain or shortness of breath. Vital signs are stable. S1 and S2 are heard, regular. Lungs are clear to auscultation bilaterally. DISCHARGE MEDICATIONS: 1. Lopressor 25 mg 2 times a day. 2. Aspirin 81 mg daily. 3. Lipitor 40 mg at bedtime. 4. Omnicef 300 mg 2 times a day for 1 week. 5. Plavix 75 mg daily. 6. Doxycycline 100 mg 2 times a day for 1 week. 7. Lasix 40 mg daily. 8. Lisinopril dose decreased to 10 mg 2 times a day. 9. Florastor 250 mg daily for 1 week. 10. DuoNeb p.r.n. CONSULTATIONS DURING THIS HOSPITALIZATION: Cardiology, Dr. Olson. POST-ACUTE CARE FOLLOWUP: With Cardiology, Dr. Malin on November 23, 2019, at 9:15 a.m., and with primary care provider on November 10, 2019, at 1:15 p.m. HOSPITAL COURSE: Ms. Mejias is a pleasant 58-year-old lady who was admitted to [facility] on October 31, 2019, for congestive heart failure exacerbation. Please refer to Dr. Juárez's history and physical note dated October 31, 2019, for further details. She was also found to have cellulitis of the right lower extremity. She was admitted to [facility] and treated with BiPAP and intravenous diuretics. Cardiology Service was consulted. She improved clinically with intravenous diuretics and was switched to oral diuretics. She continued to improve and is being discharged home in a stable condition. Preliminary blood cultures are negative at the time of this dictation. She is advised to follow up with primary care provider for final blood culture results. ACTIVITY: No restrictions. DIET: Heart healthy and low-sodium. DISCHARGE DESTINATION: Home. TIME SPENT: Total amount of time spent coordinating this discharge, 32 minutes. Job ID: [id number]
[2019-11-04] MEDS ORDERED: Furosemide 40 MG TAB PO SCH (07:30)
--- NOTE | 2019-11-07 05:38 | PQF ---
SUMAN Graham [id number] CLINICAL DOCUMENTATION CLARIFICATION FORM: POST DISCHARGE Addendum to original discharge summary date: ____ Late entry note date: __ DATE:11/07/2019 ATTN:Suman Blount Please exercise your independent, professional judgment in responding to the clarification form. Clinical indicators are provided on the bottom of this form for your review Please check appropriate box(s) to clarify if the following diagnosis has been ruled in or ruled out: Sepsis [ ] Ruled in diagnosis [ ] Continue to treat [ ] Resolved [x ] Ruled out diagnosis [ ] Cannot rule out diagnosis [ ] Other diagnosis [ ] Unable to determine For continuity of documentation, please document condition throughout progress notes and discharge summary. Thank You. CLINICAL INDICATORS - SIGNS / SYMPTOMS / LABS ED Notes 10/29 "Sepsis" HP 10/30 "patient has chronic leg swelling and wound on the lateral right castle" Vital Signs Temp: 10/30=98.7 10/31=98.4 Vital Signs Pulse: 10/31=67 11/01=61 Vital Signs BP: 11/0142=074/58 11/0229=229/56 Vital Signs Respi: 11/01=18 11/02=16 Collected 10/30 "Blood culture:no growth" Labs WBC: 10/29=17.6 10/30=11.9 Labs Lactate: 10/29=1.6 RISK FACTORS Old [place]-ED Notes 10/29 COPD-ED Notes 10/29 CHF-ED Notes 10/29 Smoker-ED Notes 10/29 Right leg cellulitis-ED Notes 10/29 CAD-Consult 10/30 Morbid obesity-PN 10/31 CKD stage 2-PN 10/31 TREATMENTS Sepsis workup initiated-HP 10/30 Rocephin 2gm IV-JUL 27 Azithromycin 500mg IV-JUL 27 Blood culture-Collected 06/09 (This form is maintained as a part of the permanent medical record) 2014 [email or web address] All Rights Reserved [email or web address]
--- NOTE | 2019-11-07 05:41 | PQF ---
NATASHA Graham [id number] CLINICAL DOCUMENTATION CLARIFICATION FORM: POST DISCHARGE Addendum to original discharge summary date: ____ Late entry note date: __ DATE: 11/07/2019 ATTN:Natasha Blount Please exercise your independent, professional judgment in responding to the clarification form. Clinical indicators are provided on the bottom of this form for your review Please check appropriate box(s) to clarify if the following diagnosis has been ruled in or ruled out: NSTEMI [ ] Ruled in diagnosis [ ] Continue to treat [ ] Resolved [ x ] Ruled out diagnosis [ ] Cannot rule out diagnosis [ ] Other diagnosis [ ] Unable to determine For continuity of documentation, please document condition throughout progress notes and discharge summary. Thank You. CLINICAL INDICATORS - SIGNS / SYMPTOMS / LABS ED Notes 10/29 "NSTEMI" Vital Signs Temp: 10/30=98.7 10/31=98.4 Vital Signs Pulse: 10/31=67 11/01=61 Vital Signs BP: 11/0169=230/58 11/0272=097/56 Vital Signs Respi: 11/01=18 11/02=16 Labs Troponin: 10/29=0.150 10/30=0.261 10/31=0.199 HP 10/30 " nonspecific ST changes" HP 10/30 " elevated troponin? acute coronary syndrome" RISK FACTORS Old [place]-ED Notes 10/29 COPD-ED Notes 10/29 CHF-ED Notes 10/29 Smoker-ED Notes 10/29 Right leg cellulitis-ED Notes 10/29 CAD-Consult 10/30 Morbid obesity-PN 10/31 CKD stage 2-PN 10/31 TREATMENTS EKG-HP 10/30 Aspirin 81mg Oral-MAR 10/30 Plavix 300mg Oral-JUL 27 (This form is maintained as a part of the permanent medical record) 2014 [employer]. All Rights Reserved [email or web address] [phone] JANETTE
== END 2019-11-03 13:05 | disposition home or self-care (01) | DRG 292 ==
LOC: ERS 23:33 → IMCU/EMU 10-31 01:26 → 2NO 11-02 06:05
PROVIDERS: ADMIT Internal Medicine; ATTEND Internal Medicine
PROC: 5A09357 Assistance with Respiratory Ventilation, Less than 24 Consecutive Hours, Continuous Positive Airway Pressure (ICD-10-PCS; principal; 2019-10-31)
DX: I50.43 Acute on chronic combined systolic (congestive) and diastolic (congestive) heart failure (principal); L03.115 Cellulitis of right lower limb; Z20.828 Contact with and (suspected) exposure to other viral communicable diseases; E87.1 Hypo-osmolality and hyponatremia; J44.9 Chronic obstructive pulmonary disease, unspecified; F17.210 Nicotine dependence, cigarettes, uncomplicated; I25.10 Atherosclerotic heart disease of native coronary artery without angina pectoris; E78.1 Pure hyperglyceridemia; E66.01 Morbid (severe) obesity due to excess calories; N18.2 Chronic kidney disease, stage 2 (mild); Z68.43 Body mass index [BMI] 50.0-59.9, adult; I25.2 Old myocardial infarction; Z95.5 Presence of coronary angioplasty implant and graft
CPT/HCPCS: 36415; 71045; 80048; 80053; 80061; 82553; 83605; 83735; 83880; 84100; 84484; 85025; 87040; 87635; 93005; 96365; 96372; 96375; J0456; J0696; J1650; J1940; J3490; U0003

== ENCOUNTER 2020-02-06 02:09 | Inpatient (IN) | payer OTHER, SELFPAY ==
[2020-02-06] MEDS ORDERED: Propofol 1,000 MG/100 ML VIAL IV ONE (02:12)
[2020-02-06] MEDS ORDERED: Succinylcholine Chloride 20 MG/ML 10 ml SYRINGE FS ONE (02:18)
[2020-02-06] MEDS ORDERED: Magnesium 2 GM/50 ML BAG (IN WATER) ONE (02:33)
[2020-02-06] MEDS ORDERED: methylPREDNISolone Sod Succ/PF 125 MG/2 ML VIAL ONE (02:34)
[2020-02-06 02:41] LABS: #Eosinphils 0.1 thou/uL (0.0-0.7); #Monocytes 0.9 thou/uL (0.11-0.59); #Neutrophils 15.4 thou/uL (1.40-6.50); %Basophils 0.2 % (0.0-1.0); %Eosinophils 0.6 % (0.0-10.0); %Lymphocytes 10.6 % (21.0-51.0); %Neutrophils 83.6 % (42.0-75.0); Hemoglobin 15.1 g/dL (12.0-16.0); Mean Corpuscular HGB CONC 32.6 g/dL (32.0-36.0); Mean Corpuscular Volume 91.9 fL (78.0-98.0); Mean Platelet Volume 7.9 fL (7.4-10.4); Platelet Count 256 thou/uL (130-400); RBC Distribution Width 14.5 % (11.5-14.5); Red Blood Cell (RBC) Count 5.05 mill/uL (4.20-5.40); White Blood Cell (WBC) Count 18.4 thou/uL (4.8-10.8)
[2020-02-06] MEDS ORDERED: Midazolam HCl 5 mg/ml Vial ONE (02:46)
[2020-02-06 02:48] LABS: INR-International Normal Ratio 1.1; PTT 26.8 sec (22.9-36.1)
[2020-02-06] MEDS ORDERED: fentaNYL Citrate/PF 2,000 MCG in Sodium Chloride 0.9% 60 ML IV SCH (03:02)
[2020-02-06] MEDS ORDERED: cefTRIAXone\\ROCEPHIN 2 GM VIAL ONE (03:11)
[2020-02-06] MEDS ORDERED: Azithromycin 500 MG VIAL ONE (03:11)
[2020-02-06] MEDS ORDERED: Terbutaline Sulfate 1 MG/ML VIAL SC SCH (03:15)
[2020-02-06 03:34] LABS: Albumin 3.9 g/dL (3.5-5.0)
[2020-02-06 03:36] LABS: Calcium 8.7 mg/dL (7.8-10.44); Chloride 105 mmol/L (98-107); Potassium 4.4 mmol/L (3.5-5.1); Sodium 138 mmol/L (136-145)
[2020-02-06 03:37] LABS: Glucose 213 mg/dL (70-105); Protein, Total 6.9 g/dL (6.0-8.3)
[2020-02-06 03:38] LABS: Carbon Dioxide 23 mmol/L (22-29)
[2020-02-06 03:39] LABS: Anion Gap 14 mmol/L (10-20); Bilirubin, Total 0.8 mg/dL (0.2-1.2)
[2020-02-06 03:40] LABS: Alkaline Phosphatase 78 U/L (40-110); Calc. Creatinine Clearance 0 mL/min (70-130); Estimated GFR-MDRD 59
[2020-02-06 03:41] LABS: BUN (Urea Nitrogen) 12 mg/dL (9.8-20.1)
[2020-02-06 03:42] LABS: AST (SGOT) 19 U/L (5-34)
[2020-02-06 03:43] LABS: ALT (SGPT) 16 U/L (8-55); CK (CPK) 93 U/L (29-168)
[2020-02-06 03:50] LABS: Actual Bicarbonate (HCO3a) 26.4 mEq/L (22-28); Analyzer IN Cardio ER; Base Excess (BEa) -5.8 mEq/L (-2.0 to +3.0); Calcium, Ionized (arterial) 1.24 mmol/L (1.12-1.30); Carboxyhemoglobin (COHb) 1.6 gm% (0.0-3.0); Hemoglobin (Hb) 15.3 g/dL (12.0-16.0); O2 Tension (PaO2), arterial 69.3 mmHg (80.0-100.0); Potassium - ABG Lab 4.31 mmol/L (3.70-5.30)
[2020-02-06 03:53] LABS: ALV-art Gradient 533.575 (0-20); CO2 Tension 88.1 mmHg (35.0-45.0); Puncture Site LR
[2020-02-06] MEDS ORDERED: Ketamine 50 MG/ML (10ML VIAL) ONE (03:58)
[2020-02-06] MEDS ORDERED: Norepinephrine 8 MG/0.9% NS 250 ML ONE (04:12)
[2020-02-06 04:13] LABS: CKMB 1.9 ng/mL (0-6.6)
[2020-02-06 04:43] LABS: Bacteria/HPF Rare-Few HPF (None Seen); Bilirubin Negative (Negative); Blood, Urine 1+ (Negative); Clarity Turbid (Clear); Glucose, Urine (Dipstick) 300 mg/dL (Negative); Ketone, Urine Negative (Negative); Leukocyte Negative Leu/uL (Negative); Nitrite Negative (Negative); Protein, Urine (Dipstick) 300 mg/dL (Neg-Trace); Specific Gravity, Urine 1.012 (1.002-1.036); Squamous Epithelial 0-3 HPF (0-3); Urobilinogen Normal mg/dL (Less than 2); pH, Urine 6.5 (5.0-9.0)
[2020-02-06] MEDS ORDERED: Morphine 2 MG/ML VIAL SLOW IVP PRN (05:39)
[2020-02-06] MEDS ORDERED: Propofol BOLUS 1,000 MG/100 ML VIAL IV PRN (05:39)
[2020-02-06] MEDS ORDERED: Fentanyl BOLUS 250 ML IVPB PRN (05:39)
[2020-02-06] MEDS ORDERED: DISCONTINUE PREVIOUS NARCOTIC PAIN MEDICATIONS AND BENZODIAZEPINES FS SCH (05:39)
[2020-02-06 06:10] LABS: SARS-CoV-2 NAA Rapid Test Not Detected (NotDetected)
[2020-02-06 06:21] LABS: Troponin I 0.129 ng/mL (< 0.028)
[2020-02-06] MEDS ORDERED: methylPREDNISolone Sod Succ 40 MG VIAL IVP SCH (07:15)
--- NOTE | 2020-02-06 07:37 | HP ---
REASON FOR ADMISSION: Acute onset of shortness of breath/respiratory failure. HISTORY OF PRESENT ILLNESS: This is a 59-year-old female patient who was short of breath. EMS was called. Upon their arrival, she appeared to be severely hypoxic. She was intubated in the field, brought to the emergency room, continued to have diminished oxygenation. Her ET tube was exchanged. Chest x-ray was done. She was diagnosed with right-sided pneumothorax. A chest tube was inserted. After the chest tube insertion, she became hypotensive, but responded to IV fluids. Her pulse ox initially in the 90s, improved after ET tube exchange. Currently, she is in the intensive care unit. Her pulse ox is 97%. She appears to be comfortable. She opens her eyes and responds appropriately. I did review her records and the patient was recently admitted to our hospital in October for acute on chronic combined systolic and diastolic congestive heart failure. She required to be in IMCU on BiPAP. She did receive IV diuresis and was stabilized. In August, she was admitted for COPD exacerbation. PAST MEDICAL HISTORY: 1. COPD. 2. Congestive heart failure, combined diastolic and systolic. 3. Morbid obesity. 4. CAD with history of [place]. SOCIAL HISTORY: From records, she is a smoker. FAMILY HISTORY: From records, positive for obesity and brain tumor. REVIEW OF SYSTEMS: Unable to obtain. She is intubated. PHYSICAL EXAMINATION: GENERAL: She is intubated. VITAL SIGNS: Her blood pressure is 125/75, her heart rate is 56, saturating 98%, and temperature is 98.5. HEENT: Head is nontraumatic and normocephalic. Pupils equal and reactive. Extraocular movements are intact. Nonicteric sclerae. Well injected conjunctivae. Oral mucosa normal. Nasal mucosa normal. NECK: Supple. No adenopathy. No murmur. Thyroid is not palpable. Trachea is midline. No supraclavicular adenopathy. HEART: S1 and S2, regular. No murmurs. No gallops. No friction rubs. No displacement of PMI. LUNGS: Diffuse and expiratory wheezing bilaterally. ABDOMEN: Bowel sounds positive. Nontender abdomen. EXTREMITIES: 1+ pitting edema in right lower extremities. NEUROLOGIC: Unable to fully assess. She is ventilated, but she opens her eyes and she moves all four extremities. LABORATORY DATA: Blood work shows WBC of 18.4, hemoglobin of 15.1, neutrophil count 83.6%. INR 1.1. ABG shows of pH 7.1, pCO2 of 88.1, saturating 87.7%. Sodium 138, potassium 4.4, bicarb 23, creatinine of 0.97, glucose 213. Troponin is 0.129, previous to that 0.068. Urinalysis shows 11 to 20 wbc's. Chest x-ray initially showed right pneumothorax. The last chest x-ray showed re-expansion of the lung, possible infiltrate, possible fluid overload. ASSESSMENT AND PLAN: This is a 59-year-old female patient presenting with acute onset of shortness of breath, hypoxia secondary to possibly development of right pneumothorax, complicating factors, possible congestive heart failure exacerbation, and chronic obstructive pulmonary disease exacerbation in a morbidly obese patient. Pulmonary. The patient is intubated. We will continue with neb treatments and IV Solu-Medrol. She possibly has a pneumonia. We will continue with IV antibiotics. Cardiac. The patient has abnormal troponin, continue cycling her cardiac enzymes. She will be on IV Lasix for possible component of congestive heart failure exacerbation. For deep venous thrombosis prophylaxis, she will remain on Lovenox. One hour of critical care time was spent to manage the patient. Job ID: [id number]
--- NOTE | 2020-02-06 07:38 | RAD ---
Exam: Chest one view HISTORY:Cyanotic and unresponsive on seen. Comparison: 02/06/2020 at 3:10 AM FINDINGS: Lines and tubes: Endotracheal tube, nasogastric tube, right-sided chest tube are redemonstrated. Righ t-sided chest tube has been pulled back. Sidehole is now in the right chest wall. Interval placement of a left-sided subclavian vascular catheter. Distal tip appears to terminate in the right atrium. Cardiac silhouette:Cardiomegaly. Aorta: Unremarkable Pulmonary vessels: Normal Costophrenic angles: Clear LUNGS: Stable scattered interstitial and alveolar opacities predominantly in the left lung. Pneumothorax: None Osseous abnormalities: None IMPRESSION: No 1. Lines and tubes as above. Consider advancement of right-sided chest tube given that the sidehole i s in the right chest wall. 2. Persistent opacification of the lung parenchyma. 3. Results of study conveyed to patient's nurse Ping 02/06/2020 at 7:29 AM Code CR
[2020-02-06 07:39] LABS: Actual Bicarbonate (HCO3a) 19.8 mEq/L (22-28); Base Excess (BEa) -4.7 mEq/L (-2.0 to +3.0); Hemoglobin (Hb) 14.9 g/dL (12.0-16.0); Potassium - ABG Lab 4.52 mmol/L (3.70-5.30); pH, Arterial 7.37 (7.35-7.45)
--- NOTE | 2020-02-06 07:40 | RAD ---
EXAM: Single view of the chest HISTORY: Chest tube placement for pneumothorax COMPARISON: 02/06/2020 2:23 AM FINDINGS: Single view of the chest shows an enlarged but stable cardiomediastinal silhouette. The en dotracheal tube extends slightly down the right mainstem bronchus. An NG tube is seen in the stomach. There is been interval placement of a right-sided chest tube with evacuation of the right pn eumothorax. The chest tube is folded back on itself. There appears to be a moderate left pleural effusion. No acute osseous abnormality. IMPRESSION: 1. Status post chest tube placement with evacuation of pneumothorax 2. Left pleural effusion 3. Low-lying endotracheal tube was withdrawn on a subsequent chest radiograph.
[2020-02-06] MEDS ORDERED: Sterile Water 10 ML ONE (07:43)
[2020-02-06] MEDS ORDERED: Vecuronium 10 MG VIAL ONE (07:43)
[2020-02-06 07:47] LABS: Puncture Site LRA
[2020-02-06] MEDS: Lorazepam 2 MG/ML VIAL SLOW IVP PRN ×2 (08:03→15:15)
[2020-02-06] MEDS ORDERED: Norepinephrine 8 MG/0.9% NS 250 ML IVPB SCH (08:34)
[2020-02-06] MEDS: Enoxaparin Sodium 40 MG/0.4 ML SYRINGE SC SCH (08:35)
[2020-02-06] MEDS: Aspirin 325 MG TAB PER TUBE SCH (08:35)
[2020-02-06] MEDS: Furosemide 40 MG/4 ML VIAL SLOW IVP SCH (08:35)
[2020-02-06] MEDS: Pantoprazole 40 MG VIAL IVP SCH (08:35)
[2020-02-06] MEDS: methylPREDNISolone Sod Succ 40 MG VIAL IVP SCH ×3 (08:35→21:06)
[2020-02-06] MEDS: Propofol 1,000 MG/100 ML VIAL IV PRN ×4 (08:37→21:06)
[2020-02-06] MEDS: Sodium Chloride 0.9% 1,000 ML IV SCH (08:39)
[2020-02-06 09:14] LABS: Troponin I 0.118 ng/mL (< 0.028)
--- NOTE | 2020-02-06 09:43 | RAD ---
CHEST 1 VIEW: HISTORY: Post intubation. TIME: 2:23 A.M. DATE: 02/06/2020. COMPARISON: 10/30/2019. FINDINGS: Very large right-sided pneumothorax with collapse of the right lung and shift of the heart and medias tinum to the left, evidence for significant tension. The NG tube tip appears to extend to near the l evel of the hemidiaphragms. Endotracheal tube appears to be in the right mainstem bronchus orifice. IMPRESSION: Large right-sided tension pneumothorax. CHEST 1 VIEW: TIME: 3:02 A.M. DATE: 02/06/2020. FINDINGS: A right chest tube has been placed which extends to near the midline. It is somewhat kinked upon its elf and the tip then extends back towards the mid right lung. There has been considerable improvemen t in the large tension pneumothorax. Endotracheal tube tip appears to be in the right mainstem bronc hus. NG tube in adequate position. Patchy pleural and parenchymal changes in the left chest with so me patchy parenchymal changes in the left mid lung zone laterally and blunting of the left costophren ic angle. IMPRESSION: Chest tube placed on the right with marked improvement in the right-sided pneumothorax. The chest tu be is kinked upon itself and repositioning would be advisable. Endotracheal tube is in the orifice o f the right mainstem bronchus. POS: OFF
--- NOTE | 2020-02-06 09:58 | RAD ---
CHEST 1 VIEW: HISTORY: Repositioning chest tubes. FINDINGS: NG tube, endotracheal tube, and right subclavian catheters are in place. The right chest tube appear s to be advanced somewhat from the prior study and is slightly bent on itself distally. Small residu al right-sided apical pneumothorax. Patchy parenchymal changes in the right lung as well as some min imal confluent parenchymal changes in the left lung with some left pleural effusion. IMPRESSION: Small residual right-sided pneumothorax. The right chest tube has been advanced somewhat and is slig htly bent upon itself. Nasogastric tube, endotracheal tube, and right subclavian catheters are in pl sadie. Minimal pleural and parenchymal opacity changes in the left chest. Continue short-term followu p. POS: OFF
--- NOTE | 2020-02-06 10:44 | PDOC.HOSPP ---
- Subjective Encounter Date: 02/06/20 Encounter Time: 10:43 Subjective: Ms. Mejias was seen today in follow-up of respiratory failure. She is currently supported with the mechanical ventilator. - Objective Vital Signs & Weight: Vital Signs (12 hours) Temp Pulse Resp Pulse Ox 02/06/20 10:08 60 02/06/20 08:00 26 H 02/06/20 07:50 61 02/06/20 07:44 56 L 30 H 100 02/06/20 07:30 69 02/06/20 06:21 100 02/06/20 06:00 98.5 F 30 H 02/06/20 05:21 58 L Weight Weight 277 lb 8.992 oz Most Recent Monitor Data Heart Rate from ECG 59 NIBP 107/67 NIBP BP-Mean 80 Respiration from ECG 26 SpO2 95 I&O: 02/05/20 02/06/20 02/07/20 06:59 06:59 06:59 Output Total 95 1150 Balance -95 -1150 Result Diagrams: 02/06/20 02:30 02/06/20 03:13 Hospitalist ROS - Medication Medications: Active Medications Generic Name Dose Route Start Last Admin Trade Name Freq PRN Reason Stop Dose Admin Albuterol/Ipratropium 3 ml 02/06/20 07:03 02/06/20 07:44 Duoneb NEB 3 ml [id number] PRN Administration SOB &/or Wheezing Albuterol/Ipratropium 3 ml 02/06/20 10:30 02/06/20 10:19 Duoneb NEB 3 ml [id number] SVEN Administration Aspirin 325 mg 02/06/20 09:00 02/06/20 08:35 Aspirin PER TUBE 325 mg DAILY SVEN Administration Enoxaparin Sodium 40 mg 02/06/20 09:00 02/06/20 08:35 Lovenox SC 40 mg 0900 SVEN Administration Furosemide 40 mg 02/06/20 09:00 02/06/20 08:35 Lasix SLOW IVP 40 mg DAILY SVEN Administration Sodium Chloride 1,000 mls @ 70 mls/hr 02/06/20 08:15 02/06/20 08:39 Normal Saline 0.9% IV 1,000 mls .[id number] SVEN Administration Lorazepam 2 mg 02/06/20 05:39 02/06/20 08:03 Ativan SLOW IVP 10/15/20 05:39 2 mg Q1H PRN Administration Breakthrough agitation Methylprednisolone Sodium Succinate 40 mg 02/06/20 09:00 02/06/20 08:35 Solu-Medrol IVP 40 mg Q6H SVEN Administration Pantoprazole Sodium 40 mg 02/06/20 09:00 02/06/20 08:35 Protonix IVP 40 mg DAILY SVEN Administration Propofol 1,000 mg 02/06/20 05:39 02/06/20 08:37 Diprivan IV 03/07/20 05:39 1,000 mg INF PRN Administration TO ACHIEVE GOAL RASS Protocol - Exam Eye: PERRL, anicteric sclera Respiratory: rhonchi (+ bilateral rhonchi) Gastrointestinal: soft, non-tender, non-distended, normal bowel sounds, no palpable masses Extremities: no cyanosis, 2+ LE edema (+ bilateral lower extremity edema) Hosp A/P (1) Acute respiratory failure with hypoxia and hypercapnia Code(s): J96.01 - ACUTE RESPIRATORY FAILURE WITH HYPOXIA; J96.02 - ACUTE RESPIRATORY FAILURE WITH HYPERCAPNIA Status: Acute (2) Morbid obesity with BMI of 40.0-44.9, adult Code(s): E66.01 - MORBID (SEVERE) OBESITY DUE TO EXCESS CALORIES; Z68.41 - BODY MASS INDEX (BMI) 40.0-44.9, ADULT Status: Chronic (3) Acute exacerbation of CHF (congestive heart failure) Code(s): I50.9 - HEART FAILURE, UNSPECIFIED Status: Acute Qualifiers: Heart failure type: combined systolic and diastolic Qualified Code(s): I50.43 - Acute on chronic combined systolic (congestive) and diastolic ( congestive) heart failure (4) COPD exacerbation Code(s): J44.1 - CHRONIC OBSTRUCTIVE PULMONARY DISEASE W (ACUTE) EXACERBATION Status: Acute (5) HTN (hypertension) Code(s): I10 - ESSENTIAL (PRIMARY) HYPERTENSION Status: Chronic Qualifiers: Hypertension type: essential hypertension Qualified Code(s): I10 - Essential (primary) hypertension - Plan * Acute respiratory failure due to COPD exacerbation and CHF exacerbation * Continue vent support * Continue IV antibiotics and IV steroids, Duonebs * Continue IV Lasix * GI and DVT Prophylaxis * Consider Tube feeds * Further recommendations from [facility]
--- NOTE | 2020-02-06 11:49 | CON ---
DATE OF CONSULTATION: 02/06/2020 TIME SPENT: 45 minutes of critical care time. REASON FOR CONSULTATION: Respiratory failure requiring mechanical ventilation, COPD exacerbation, pneumothorax. HISTORY OF PRESENT ILLNESS: The patient is a 59-year-old female, who presented to the hospital via EMS intubated. She also had a tension pneumothorax on the right. My guess is she was probably overly aggressively bagged on the way and developed pneumothorax. A chest tube was placed. It was not completely put into the chest cavity as the proximal port was still in the chest wall. She is on mechanical ventilation. PAST MEDICAL HISTORY: 1. Chronic obstructive pulmonary disease. 2. Diastolic congestive heart failure. 3. Morbid obesity. 4. Coronary artery disease. 5. Myocardial infarction. PAST SURGICAL HISTORY: Unremarkable. SOCIAL HISTORY: A pack and a half a day smoker and has drank heavily in the past. FAMILY MEDICAL HISTORY: Remarkable for cancer. REVIEW OF SYSTEMS: Cannot be obtained as she is currently intubated and sedated. MEDICATIONS: Unknown. PHYSICAL EXAMINATION: VITAL SIGNS: Temperature 98.5, pulse 67, blood pressure 135/74, O2 saturation 94%. GENERAL: She is a morbidly obese female, standing 5 feet 8 inches, weighing 277 pounds with BMI 42. HEENT: Remarkable for intubated patient, cushingoid type appearance in the face. NECK: No adenopathy or JVD. LUNGS: Poor air movement bilaterally. CARDIOVASCULAR: S1, S2. Regular. ABDOMEN: Obese, soft, nontender. EXTREMITIES: Obese. No cyanosis or edema. LABORATORY AND DIAGNOSTIC DATA: Her chest x-ray shows a chest tube, that is not completely placed into the pleural space. ABG; pH 7.37, pCO2 of 35, pO2 of 258, that was on SIMV rate 30, inspiratory pressure set to 1:1 ratio, PEEP of 10, FiO2 of 90%. White blood cell count 18.4, hematocrit 46.4, and platelet count 256. Sodium 138, potassium 4.4, chloride 105, CO2 of 23, BUN 12, creatinine 0.9, glucose 213. Chest x-ray initially showed a large right-sided pneumothorax. COVID test was negative. ASSESSMENT: 1. Chronic obstructive pulmonary disease with exacerbation. 2. Acute respiratory failure requiring mechanical ventilation. 3. Iatrogenic right pneumothorax, likely from over aggressively bagging. PLAN: 1. I have advanced her chest tube and will recheck her chest x-ray. 2. I switched over to volume ventilation with settings to promote a longer exhalation time. 3. Nebulization treatments, steroids. 4. Empiric antibiotics. 5. Enoxaparin for DVT prophylaxis. 6. Protonix for GI prophylaxis. 7. Keep paralyzed today. Job ID: [id number]
[2020-02-06] MEDS: Vecuronium 10 MG VIAL IVP PRN ×3 (12:18→17:08)
[2020-02-07] MEDS: Sodium Chloride 0.9% 1,000 ML IV SCH ×2 (00:19→12:49)
[2020-02-07] MEDS: methylPREDNISolone Sod Succ 40 MG VIAL IVP SCH ×4 (02:09→20:15)
[2020-02-07] MEDS: Propofol 1,000 MG/100 ML VIAL IV PRN ×6 (02:09→23:00)
[2020-02-07] MEDS: fentaNYL Citrate/PF 2,000 MCG in Sodium Chloride 0.9% 60 ML IV SCH (02:19)
[2020-02-07] MEDS ORDERED: methylPREDNISolone Sod Succ 40 MG VIAL ONE (03:00)
[2020-02-07] MEDS ORDERED: Propofol 1,000 MG/100 ML VIAL IV ONE (06:00)
[2020-02-07 07:25] LABS: Anion Gap 11 mmol/L (10-20); BUN (Urea Nitrogen) 15 mg/dL (9.8-20.1); Calc. Creatinine Clearance 165 mL/min (70-130); Calcium 8.8 mg/dL (7.8-10.44); Carbon Dioxide 26 mmol/L (22-29); Chloride 104 mmol/L (98-107); Estimated GFR-MDRD 81; Glucose 161 mg/dL (70-105); Potassium 4.3 mmol/L (3.5-5.1); Sodium 137 mmol/L (136-145)
--- NOTE | 2020-02-07 07:38 | PRG ---
DATE OF SERVICE: 02/07/2020 This is 35 minutes critical care time. SUBJECTIVE: The patient remains intubated on mechanical ventilation. There has been no acute changes overnight. She has not required paralysis. OBJECTIVE: VITAL SIGNS: Her temperature is 99.0, pulse 91, blood pressure 135/61. She is currently on SIMV, rate 22, tidal volume of 350, PEEP 5, pressure support 10, FiO2 60%. HEENT: Unremarkable. NECK: No adenopathy or JVD. LUNGS: Diffuse wheezing bilaterally. CARDIAC: S1, S2 regular. ABDOMEN: Midline abdominal hernia noted. EXTREMITIES: No edema. LABORATORY DATA: Sodium 137, potassium 4.3, chloride 104, CO2 of 26, BUN 15, creatinine 0.7, glucose 161. White count 4.3, hemoglobin 13, hematocrit 40, and platelet count 230. ASSESSMENT: 1. Chronic obstructive pulmonary disease with exacerbation. 2. Acute respiratory failure requiring mechanical ventilation. PLAN: 1. Not weanable at this time. Await ABG from today and make adjustments based on that. 2. Continue steroids, antibiotics, and nebulization treatments. 3. Discontinue Levophed order. Job ID: [id number]
--- NOTE | 2020-02-07 08:04 | RAD ---
EXAM: CHEST ONE VIEW HISTORY: Pneumonia. Right-sided chest U. COMPARISON: 02/06/2020 FINDINGS: Endotracheal tube, nasogastric tube, and right-sided vascular catheter remain in place. Cardiac silho uette remains enlarged. Right-sided thoracostomy tube is again seen with tip now overlying right lung base. Right-sided pneumothorax is again seen with the pneumothorax has increased in size compare d to prior study with pneumothorax seen at the right lung apex as well as at the right lung base. Increased density is seen in the visualized right lung likely related to volume loss. There is nodula r appearing opacity in the right hilar region which could be related to volume loss and accentuation of vascular structures in this region. There is improved aeration in the left upper lung zone. Subcutaneous emphysema is again seen about the right chest which has increased. IMPRESSION: 1. Right-sided thoracostomy tube again noted in place which does appear to have been advanced with ti p now overlying the right lung base. Right-sided pneumothorax persists and is larger in size on current exam. 2. Remaining lines and tubes are stable in position. 3. Volume loss involving the right lung with nodular appearing opacity in the right hilar region. Thi s nodular opacity may represent volume loss as well. However, continued follow-up is recommended.. 4. Improved aeration left upper lung. 5. Above findings discussed with Rubi CCU nurse on 02/07/2020 at 0759 hours.
[2020-02-07] MEDS ORDERED: Azithromycin 500 MG in Sodium Chloride 0.9% 250 ML 250 ML IVPB SCH (09:00)
[2020-02-07] MEDS: Aspirin 325 MG TAB PER TUBE SCH (09:27)
[2020-02-07] MEDS: Enoxaparin Sodium 40 MG/0.4 ML SYRINGE SC SCH (09:28)
[2020-02-07] MEDS: Furosemide 40 MG/4 ML VIAL SLOW IVP SCH (09:28)
[2020-02-07] MEDS: cefTRIAXone\\ROCEPHIN 1 GM in Sodium Chloride 0.9% 100 ML IVPB SCH (09:46)
--- NOTE | 2020-02-07 09:47 | PDOC.HOSPP ---
- Subjective Encounter Date: 02/07/20 Encounter Time: 09:45 Subjective: Ms. Mejias was seen today in follow-up of respiratory failure. She is intubated. She will respond to commands. - Objective Vital Signs & Weight: Vital Signs (12 hours) Temp Pulse Resp BP 02/07/20 02:02 62 122/47 L 02/07/20 02:00 22 H 02/07/20 00:01 63 119/54 L 02/07/20 00:00 99.4 F 22 H 02/06/20 22:00 22 H Weight Admit Weight 277 lb Weight 277 lb 8.992 oz Most Recent Monitor Data Heart Rate from ECG 65 NIBP 122/47 NIBP BP-Mean 72 Respiration from ECG 12 SpO2 92 I&O: 02/06/20 02/07/20 02/08/20 06:59 06:59 06:59 Intake Total 2407 Output Total 95 2365 Balance -95 42 Result Diagrams: 02/06/20 02:30 02/07/20 03:30 Additional Labs: Accuchecks 02/06/20 15:37 POC Glucose 154 H Hospitalist ROS - Medication Medications: Active Medications Generic Name Dose Route Start Last Admin Trade Name Freq PRN Reason Stop Dose Admin Albuterol/Ipratropium 3 ml 02/06/20 07:03 02/06/20 12:44 Duoneb NEB 3 ml [id number] PRN Administration SOB &/or Wheezing Albuterol/Ipratropium 3 ml 02/06/20 13:00 02/07/20 02:02 Duoneb NEB 3 ml [id number] SVEN Administration Aspirin 325 mg 02/06/20 09:00 02/07/20 09:27 Aspirin PER TUBE 325 mg DAILY SVEN Administration Enoxaparin Sodium 40 mg 02/06/20 09:00 02/07/20 09:28 Lovenox SC 40 mg 0900 SVEN Administration Furosemide 40 mg 02/06/20 09:00 02/07/20 09:28 Lasix SLOW IVP 40 mg DAILY SVEN Administration Fentanyl Citrate 2,000 mcg/ 100 mls @ 0 mls/hr 02/06/20 05:39 02/07/20 02:19 Sodium Chloride IV 03/07/20 05:39 100 mls INF SVEN Administration Protocol Per Protocol Azithromycin 500 mg/ Sodium 250 mls @ 250 mls/hr 02/07/20 09:00 02/07/20 09:28 Chloride IVPB 250 mls Q24HR SVEN Administration Sodium Chloride 1,000 mls @ 70 mls/hr 02/06/20 08:15 02/07/20 00:19 Normal Saline 0.9% IV 1,000 mls .[id number] SVEN Administration Lorazepam 2 mg 02/06/20 05:39 02/06/20 15:15 Ativan SLOW IVP 03/07/20 05:39 2 mg Q1H PRN Administration Breakthrough agitation Methylprednisolone Sodium Succinate 40 mg 02/06/20 09:00 02/07/20 02:09 Solu-Medrol IVP 40 mg Q6H SVEN Administration Pantoprazole Sodium 40 mg 02/06/20 09:00 02/06/20 08:35 Protonix IVP 40 mg DAILY SVEN Administration Propofol 1,000 mg 02/06/20 05:39 02/07/20 09:25 Diprivan IV 03/07/20 05:39 1,000 mg INF PRN Administration TO ACHIEVE GOAL RASS Protocol Vecuronium [place] 10 mg 02/06/20 07:42 02/06/20 17:08 Norcuron IVP 10 mg Q30MIN PRN Administration Agitation - Exam Eye: PERRL, anicteric sclera Heart: RRR, no murmur, no gallops, no rubs, normal peripheral pulses Respiratory: rales Gastrointestinal: soft, non-tender, non-distended, normal bowel sounds, no palpable masses, no hepatomegaly, no splenomegaly Extremities: no cyanosis, 1+ LE edema Hosp A/P (1) Acute respiratory failure with hypoxia and hypercapnia Code(s): J96.01 - ACUTE RESPIRATORY FAILURE WITH HYPOXIA; J96.02 - ACUTE RESPIRATORY FAILURE WITH HYPERCAPNIA Status: Acute (2) Morbid obesity with BMI of 40.0-44.9, adult Code(s): E66.01 - MORBID (SEVERE) OBESITY DUE TO EXCESS CALORIES; Z68.41 - BODY MASS INDEX (BMI) 40.0-44.9, ADULT Status: Chronic (3) Acute exacerbation of CHF (congestive heart failure) Code(s): I50.9 - HEART FAILURE, UNSPECIFIED Status: Acute Qualifiers: Heart failure type: combined systolic and diastolic Qualified Code(s): I50.43 - Acute on chronic combined systolic (congestive) and diastolic (congestive) heart failure (4) COPD exacerbation Code(s): J44.1 - CHRONIC OBSTRUCTIVE PULMONARY DISEASE W (ACUTE) EXACERBATION Status: Acute (5) HTN (hypertension) Code(s): I10 - ESSENTIAL (PRIMARY) HYPERTENSION Status: Chronic Qualifiers: Hypertension type: essential hypertension Qualified Code(s): I10 - Essential (primary) hypertension - Plan * Acute respiratory failure due to COPD exacerbation and CHF exacerbation * Continue vent support * Continue Rocephin, Azithromycin and Solumedrol IV * Continue IV Lasix * Blood glucose is stable * GI and DVT Prophylaxis * Start tube feeds * Further recommendations from [facility]
[2020-02-07] MEDS: Pantoprazole 40 MG VIAL IVP SCH (09:48)
[2020-02-07] MEDS: Lorazepam 2 MG/ML VIAL SLOW IVP PRN (09:49)
[2020-02-07 10:09] LABS: #Neutrophils 8.7 thou/uL (1.40-6.50); %Eosinophils 0.1 % (0.0-10.0); %Lymphocytes 9.3 % (21.0-51.0); %Monocytes 3.7 % (0.0-10.0); Mean Corpuscular HGB CONC 32.1 g/dL (32.0-36.0); Mean Corpuscular Hemoglobin 29.6 pg (27.0-31.0); Mean Corpuscular Volume 92.2 fL (78.0-98.0); Mean Platelet Volume 7.8 fL (7.4-10.4); Platelet Count 230 thou/uL (130-400); RBC Distribution Width 14.3 % (11.5-14.5); Red Blood Cell (RBC) Count 4.39 mill/uL (4.20-5.40)
[2020-02-07 10:10] LABS: #Lymphocytes 0.9 thou/uL (1.20-3.40); #Monocytes 0.4 thou/uL (0.11-0.59); MDiff Complete? YES
[2020-02-07] MEDS ORDERED: Montelukast Sodium 10 mg Tablet PER TUBE SCH (11:15)
[2020-02-07 16:46] LABS: Actual Bicarbonate (HCO3a) 27.2 mEq/L (22-28); Base Excess (BEa) -0.4 mEq/L (-2.0 to +3.0); CO2 Tension 57.1 mmHg (35.0-45.0); Calcium, Ionized (arterial) 1.23 mmol/L (1.12-1.30); Carboxyhemoglobin (COHb) 0.1 gm% (0.0-3.0); Hemoglobin (Hb) 13.8 g/dL (12.0-16.0); O2 Tension (PaO2), arterial 87.8 mmHg (80.0-100.0); Potassium - ABG Lab 4.23 mmol/L (3.70-5.30); Puncture Site L.R.
[2020-02-07 16:47] LABS: ALV-art Gradient 268.625 mmHg (0-20)
[2020-02-07] MEDS ORDERED: Sodium Bicarbonate Tab 325 MG TAB PER TUBE PRN (18:30)
[2020-02-07] MEDS ORDERED: Pancrelipase DR 12,000 1 CAP FS PRN (18:30)
[2020-02-08] MEDS: Propofol 1,000 MG/100 ML VIAL IV PRN ×6 (02:18→21:19)
[2020-02-08] MEDS: methylPREDNISolone Sod Succ 40 MG VIAL IVP SCH ×4 (02:18→21:19)
[2020-02-08] MEDS: Sodium Chloride 0.9% 1,000 ML IV SCH (04:13)
[2020-02-08 07:03] LABS: Actual Bicarbonate (HCO3a) 26.5 mEq/L (22-28); Base Excess (BEa) 0.3 mEq/L (-2.0 to +3.0); CO2 Tension 48.6 mmHg (35.0-45.0); Calcium, Ionized (arterial) 1.24 mmol/L (1.12-1.30); Carboxyhemoglobin (COHb) 0.3 gm% (0.0-3.0); Hemoglobin (Hb) 13.6 g/dL (12.0-16.0); O2 Tension (PaO2), arterial 117.8 mmHg (80.0-100.0); Potassium - ABG Lab 3.98 mmol/L (3.70-5.30); pH, Arterial 7.35 (7.35-7.45)
[2020-02-08 07:06] LABS: Puncture Site RRA
--- NOTE | 2020-02-08 07:46 | PRG ---
DATE OF SERVICE: 02/08/2020 TIME SPENT: 35 minutes of critical care time. SUBJECTIVE: The patient remains intubated on mechanical ventilation. She will wake up, follow commands without constraint. OBJECTIVE: VITAL SIGNS: Temperature is 98.4, pulse 66, blood pressure 139/58, O2 saturation 95%. Total intake for 24 hours 3046, output 1762. HEENT: Unremarkable. NECK: No JVD. LUNGS: Some mild expiratory wheezing. Plateau pressure of 17, peak pressure of 37. CARDIAC: S1 and S2. Regular. ABDOMEN: Soft and nontender. EXTREMITIES: No edema. LABORATORY DATA: Sodium 137, potassium 4.3, chloride 104, CO2 of 26, BUN 15, creatinine 0.7, glucose 161; pH 7.35, pCO2 of 48, pO2 of 117. Chest x-ray shows a right apical pneumothorax. Chest tube did not show any leak today. ASSESSMENT: 1. Right-sided pneumothorax, probably from aggressive bagging during CPR. 2. Acute respiratory failure requiring mechanical ventilation. 3. Chronic obstructive pulmonary disease with exacerbation. PLAN: 1. Begin to decrease ventilatory support as tolerated. Still has some bronchospasm, so I will assume it is going to be 1 to 2 more days on mechanical ventilation. 2. Can stop the azithromycin. 3. Stop IV fluids. 4. Order labs for tomorrow. Job ID: [id number]
--- NOTE | 2020-02-08 07:59 | RAD ---
PORTABLE CHEST: Date: 02/08/2020 PROVIDED CLINICAL HISTORY: Pneumonia. FINDINGS: Comparison with 02/07/2020. Support apparatus appears stable in position. There is a stable right pneumothorax. There is no shift of mediastinal contents. The left lung base is poorly evaluated on the basis of cardiomegaly with ba silar pleural and/or parenchymal opacity possible. The appearance of the lung parenchyma is overall n ot significantly changed with respect to prior. Cardiac silhouette remains enlarged. IMPRESSION: Stable radiographic appearance of the chest. POS: OFF
[2020-02-08] MEDS: Enoxaparin Sodium 40 MG/0.4 ML SYRINGE SC SCH (08:24)
[2020-02-08] MEDS: Pantoprazole 40 MG VIAL IVP SCH (08:25)
[2020-02-08] MEDS: Furosemide 40 MG/4 ML VIAL SLOW IVP SCH (08:25)
[2020-02-08] MEDS: Aspirin 325 MG TAB PER TUBE SCH (08:25)
[2020-02-08] MEDS: Montelukast Sodium 10 mg Tablet PER TUBE SCH (08:25)
[2020-02-08] MEDS ORDERED: Calcium Carbonate 600 MG TAB ONE (08:27)
[2020-02-08] MEDS: cefTRIAXone\\ROCEPHIN 1 GM in Sodium Chloride 0.9% 100 ML IVPB SCH (09:22)
[2020-02-08] MEDS: fentaNYL Citrate/PF 2,000 MCG in Sodium Chloride 0.9% 60 ML IV SCH (11:19)
--- NOTE | 2020-02-08 11:26 | PDOC.HOSPP ---
- Subjective Encounter Date: 02/08/20 Encounter Time: 09:40 Subjective: Patient seen in follow-up for acute hypoxic and hypercapnic respiratory failure. Patient is currently intubated, could not complete review of systems - Objective Vital Signs & Weight: Vital Signs (12 hours) Temp Pulse Resp Pulse Ox 02/08/20 10:47 82 02/08/20 10:00 21 H 02/08/20 08:00 98.9 F 18 94 L 02/08/20 07:07 63 02/08/20 06:00 22 H 02/08/20 04:32 67 22 H 97 02/08/20 04:00 98.4 F 22 H 02/08/20 02:38 58 L 02/08/20 02:36 57 L 22 H 100 02/08/20 02:00 22 H 02/08/20 00:34 89 22 H 99 02/08/20 00:30 65 02/08/20 00:00 99.1 F 22 H Weight Admit Weight 277 lb Weight 268 lb 15.423 oz Most Recent Monitor Data Heart Rate from ECG 73 NIBP 132/52 NIBP BP-Mean 78 Respiration from ECG 16 SpO2 93 I&O: 02/07/20 02/08/20 02/09/20 06:59 06:59 06:59 Intake Total 2407 3046.7 Output Total 2365 1762 1485 Balance 42 1284.7 -1485 Result Diagrams: 02/07/20 04:15 02/07/20 03:30 Additional Labs: I reviewed patient's labs and MAR EKG Reviewed by me: Yes (Telemetry: Normal sinus rhythm) Hospitalist ROS - Review of Systems ROS unobtainable: due to endotracheal tube - Medication Medications: Active Medications Generic Name Dose Route Start Last Admin Trade Name Freq PRN Reason Stop Dose Admin Albuterol/Ipratropium 3 ml 02/06/20 07:03 02/06/20 12:44 Duoneb NEB 3 ml [id number] PRN Administration SOB &/or Wheezing Albuterol/Ipratropium 3 ml 02/06/20 13:00 02/08/20 10:46 Duoneb NEB 3 ml [id number] SVEN Administration Aspirin 325 mg 02/06/20 09:00 02/08/20 08:25 Aspirin PER TUBE 325 mg DAILY SVEN Administration Enoxaparin Sodium 40 mg 02/06/20 09:00 02/08/20 08:24 Lovenox SC 40 mg 0900 SVEN Administration Furosemide 40 mg 02/06/20 09:00 02/08/20 08:25 Lasix SLOW IVP 40 mg DAILY SVEN Administration Fentanyl Citrate 2,000 mcg/ 100 mls @ 0 mls/hr 02/06/20 05:39 02/08/20 11:19 Sodium Chloride IV 03/07/20 05:39 100 mls INF SVEN Administration Protocol Per Protocol Ceftriaxone Sodium 1 gm/ 100 mls @ 200 mls/hr 02/07/20 09:00 02/08/20 09:22 Sodium Chloride IVPB 100 mls Q24HR SEVN Administration Lorazepam 2 mg 02/06/20 05:39 02/07/20 09:49 Ativan SLOW IVP 03/07/20 05:39 2 mg Q1H PRN Administration Breakthrough agitation Methylprednisolone Sodium Succinate 40 mg 02/06/20 09:00 02/08/20 08:28 Solu-Medrol IVP 40 mg Q6H SVEN Administration Montelukast Sodium 10 mg 02/08/20 09:00 02/08/20 08:25 Montelukast Sodium 10 Mg Tablet PER TUBE 10 mg DAILY SVEN Administration Pantoprazole Sodium 40 mg 02/06/20 09:00 02/08/20 08:25 Protonix IVP 40 mg DAILY SVEN Administration Propofol 1,000 mg 02/06/20 05:39 02/08/20 07:37 Diprivan IV 03/07/20 05:39 1,000 mg INF PRN Administration TO ACHIEVE GOAL RASS Protocol Vecuronium [place] 10 mg 02/06/20 07:42 02/06/20 17:08 Norcuron IVP 10 mg Q30MIN PRN Administration Agitation - Exam General - other findings: Intubated, mechanically ventilated ENT: normocephalic atraumatic ENT - other findings: Endotracheal tube, OG tube Neck: supple Heart: RRR Respiratory: CTAB Gastrointestinal: soft, non-tender Extremities: no cyanosis Skin: no rashes Neurological - other findings: Unable to assess Psychiatric - other findings: Unable to assess Hosp A/P - Plan (1) Acute respiratory failure with hypoxia and hypercapnia Code(s): J96.01 - ACUTE RESPIRATORY FAILURE WITH HYPOXIA; J96.02 - ACUTE RESPIRATORY FAILURE WITH HYPERCAPNIA Status: Acute (2) COPD exacerbation Code(s): J44.1 - CHRONIC OBSTRUCTIVE PULMONARY DISEASE W (ACUTE) EXACERBATION Status: Acute (3) Acute exacerbation of CHF (congestive heart failure) Code(s): I50.9 - HEART FAILURE, UNSPECIFIED Status: Acute Qualifiers: Heart failure type: combined systolic and diastolic Qualified Code(s): I50.43 - Acute on chronic combined systolic (congestive) and diastolic (congestive) heart failure (4) Morbid obesity with BMI of 40.0-44.9, adult Code(s): E66.01 - MORBID (SEVERE) OBESITY DUE TO EXCESS CALORIES; Z68.41 - BODY MASS INDEX (BMI) 40.0-44.9, ADULT Status: Chronic (5) HTN (hypertension) Code(s): I10 - ESSENTIAL (PRIMARY) HYPERTENSION Status: Chronic Qualifiers: Hypertension type: essential hypertension Qualified Code(s): I10 - Essential (primary) hypertension - Plan * Acute respiratory failure due to combination of COPD exacerbation and CHF exacerbation * Patient is on Rocephin, Azithromycin and Solumedrol IV * Patient is on IV Lasix * Blood glucose is stable * Propofol for sedation * GI and DVT Prophylaxis * Continue tube feeds
[2020-02-09] MEDS: Propofol 1,000 MG/100 ML VIAL IV PRN ×2 (01:24→05:11)
[2020-02-09] MEDS: methylPREDNISolone Sod Succ 40 MG VIAL IVP SCH ×5 (03:22→20:02)
[2020-02-09 04:22] LABS: #Lymphocytes 0.7 thou/uL (1.20-3.40); #Monocytes 0.5 thou/uL (0.11-0.59); #Neutrophils 7.3 thou/uL (1.40-6.50); %Basophils 0.1 % (0.0-1.0); %Eosinophils 0.2 % (0.0-10.0); %Lymphocytes 8.5 % (21.0-51.0); %Monocytes 6.2 % (0.0-10.0); %Neutrophils 85.1 % (42.0-75.0); Hemoglobin 13.3 g/dL (12.0-16.0); Mean Corpuscular HGB CONC 31.6 g/dL (32.0-36.0); Mean Corpuscular Hemoglobin 29.3 pg (27.0-31.0); Mean Corpuscular Volume 92.9 fL (78.0-98.0); Mean Platelet Volume 8.3 fL (7.4-10.4); Platelet Count 240 thou/uL (130-400); RBC Distribution Width 14.2 % (11.5-14.5); Red Blood Cell (RBC) Count 4.52 mill/uL (4.20-5.40); White Blood Cell (WBC) Count 8.6 thou/uL (4.8-10.8)
[2020-02-09 04:41] LABS: Anion Gap 12 mmol/L (10-20); BUN (Urea Nitrogen) 26 mg/dL (9.8-20.1); Calc. Creatinine Clearance 176 mL/min (70-130); Calcium 8.6 mg/dL (7.8-10.44); Carbon Dioxide 30 mmol/L (22-29); Chloride 102 mmol/L (98-107); Estimated GFR-MDRD 90; Glucose 223 mg/dL (70-105); Sodium 140 mmol/L (136-145)
[2020-02-09] MEDS: fentaNYL Citrate/PF 2,000 MCG in Sodium Chloride 0.9% 60 ML IV SCH (06:34)
[2020-02-09 07:02] LABS: Actual Bicarbonate (HCO3a) 32.2 mEq/L (22-28); Base Excess (BEa) 4.1 mEq/L (-2.0 to +3.0); CO2 Tension 63.7 mmHg (35.0-45.0); Calcium, Ionized (arterial) 1.23 mmol/L (1.12-1.30); Carboxyhemoglobin (COHb) 0.6 gm% (0.0-3.0); Hemoglobin (Hb) 14.2 g/dL (12.0-16.0); O2 Tension (PaO2), arterial 95.5 mmHg (80.0-100.0); Potassium - ABG Lab 4.03 mmol/L (3.70-5.30); Puncture Site RRA; pH, Arterial 7.32 (7.35-7.45)
[2020-02-09 07:03] LABS: ALV-art Gradient 145.725 mmHg (0-20)
--- NOTE | 2020-02-09 08:07 | PRG ---
DATE OF SERVICE: 02/09/2020 A 35-minutes critical care time. SUBJECTIVE: The patient remains intubated on mechanical ventilation. There have been no acute changes overnight. OBJECTIVE: VITAL SIGNS: Temperature 98.7, pulse 68, blood pressure 168/67, and sat 94%. HEENT: Unremarkable. NECK: No adenopathy or JVD. LUNGS: No wheezing. CARDIAC: S1 and S2, regular. ABDOMEN: Soft. EXTREMITIES: No edema. Her chest x-ray showed no pneumothorax. Her chest tube showed no air leak. LABORATORY DATA: White blood cell count 8.6, hematocrit 42, and platelet count 214. PH 7.32, pCO2 of 63, and PO2 of 95. Sodium 140, potassium 4, chloride 102, CO2 of 30, BUN 26, creatinine 0.6, and glucose 223. ASSESSMENT: 1. Acute respiratory failure requiring mechanical ventilation. 2. Right pneumothorax-iatrogenic from over aggressive bagging. 3. Chronic obstructive pulmonary disease exacerbation. PLAN: Spontaneous breathing trial and consider extubating if she passes. Continue steroids, nebulization treatments, but change the nebs to q.4 hours. Job ID: [id number]
[2020-02-09] MEDS: Aspirin 325 MG TAB PER TUBE SCH (08:57)
[2020-02-09] MEDS: Pantoprazole 40 MG GRANULES PACKET PER TUBE SCH (08:57)
[2020-02-09] MEDS: Montelukast Sodium 10 mg Tablet PER TUBE SCH (08:57)
[2020-02-09] MEDS: Enoxaparin Sodium 40 MG/0.4 ML SYRINGE SC SCH (08:57)
[2020-02-09] MEDS: cefTRIAXone\\ROCEPHIN 1 GM in Sodium Chloride 0.9% 100 ML IVPB SCH (09:01)
--- NOTE | 2020-02-09 09:24 | RAD ---
PORTABLE CHEST: HISTORY: Pneumonia followup. COMPARISON: 02/08/2020. FINDINGS: ET tube and NG tube are in place. There are bibasilar infiltrates and probable small effusions. Haz y right upper lung infiltrates in the perihilar regions. No evidence of significant change from yest erday. The right chest tube is again seen. No significant pneumothorax identified. Subcutaneous emphysema again noted. IMPRESSION: No evidence of significant interval change. POS: OFF
--- NOTE | 2020-02-09 14:29 | PDOC.HOSPP ---
- Subjective Encounter Date: 02/09/20 Encounter Time: 11:00 Subjective: Patient seen for follow-up regarding acute hypoxic respiratory failure. Patient is intubated, unable to obtain ROS. - Objective Vital Signs & Weight: Vital Signs (12 hours) Temp Pulse Resp Pulse Ox 02/09/20 10:34 81 14 94 L 02/09/20 09:20 79 20 94 L 02/09/20 08:00 98.6 F 6 L 96 02/09/20 07:05 85 02/09/20 06:00 18 02/09/20 05:04 68 18 97 02/09/20 04:00 98.7 F 18 02/09/20 02:59 63 18 95 02/09/20 02:37 68 Weight Admit Weight 277 lb Weight 271 lb 13.279 oz Most Recent Monitor Data Heart Rate from ECG 68 NIBP 187/86 NIBP BP-Mean 119 Respiration from ECG 24 SpO2 94 I&O: 02/08/20 02/09/20 02/10/20 06:59 06:59 06:59 Intake Total 3046.7 4174 214.4 Output Total 1762 3125 315 Balance 1284.7 1049 -100.6 Result Diagrams: 02/09/20 03:25 02/09/20 03:25 Additional Labs: I reviewed patient's labs and MAR EKG Reviewed by me: Yes (Telemetry: NSR) Hospitalist ROS - Review of Systems ROS unobtainable: due to endotracheal tube - Medication Medications: Active Medications Generic Name Dose Route Start Last Admin Trade Name Freq PRN Reason Stop Dose Admin Albuterol/Ipratropium 3 ml 02/06/20 07:03 02/06/20 12:44 Duoneb NEB 3 ml [id number] PRN Administration SOB &/or Wheezing Albuterol/Ipratropium 3 ml 02/09/20 10:30 02/09/20 10:34 Ipratropium/Albuterol Sulfate 3 Ml Neb NEB 3 ml [id number] SVEN Administration Aspirin 325 mg 02/06/20 09:00 02/09/20 08:57 Aspirin PER TUBE 325 mg DAILY SVEN Administration Enoxaparin Sodium 40 mg 02/06/20 09:00 02/09/20 08:57 Lovenox SC 40 mg 0900 SVEN Administration Fentanyl Citrate 2,000 mcg/ 100 mls @ 0 mls/hr 02/06/20 05:39 02/09/20 06:34 Sodium Chloride IV 03/07/20 05:39 100 mls INF SVEN Administration Protocol Per Protocol Ceftriaxone Sodium 1 gm/ 100 mls @ 200 mls/hr 02/07/20 09:00 02/09/20 09:01 Sodium Chloride IVPB 100 mls Q24HR SVEN Administration Lorazepam 2 mg 02/06/20 05:39 02/07/20 09:49 Ativan SLOW IVP 03/07/20 05:39 2 mg Q1H PRN Administration Breakthrough agitation Methylprednisolone Sodium Succinate 40 mg 02/06/20 09:00 02/09/20 09:00 Solu-Medrol IVP 40 mg Q6H SVEN Administration Montelukast Sodium 10 mg 02/08/20 09:00 02/09/20 08:57 Montelukast Sodium 10 Mg Tablet PER TUBE 10 mg DAILY SVEN Administration Pantoprazole Sodium 40 mg 02/09/20 09:00 02/09/20 08:57 Pantoprazole 40 Mg Granules Packet PER TUBE 40 mg DAILY SVEN Administration Propofol 1,000 mg 02/06/20 05:39 02/09/20 05:11 Diprivan IV 03/07/20 05:39 1,000 mg INF PRN Administration TO ACHIEVE GOAL RASS Protocol - Exam General - other findings: Morbid obesity Eye: anicteric sclera ENT: moist mucosa Neck: supple Heart: RRR Respiratory: CTAB Gastrointestinal: soft Skin: no rashes Psychiatric - other findings: Unable to assess Hosp A/P - Plan (1) Acute respiratory failure with hypoxia and hypercapnia Code(s): J96.01 - ACUTE RESPIRATORY FAILURE WITH HYPOXIA; J96.02 - ACUTE RESPIRATORY FAILURE WITH HYPERCAPNIA Status: Acute (2) COPD exacerbation Code(s): J44.1 - CHRONIC OBSTRUCTIVE PULMONARY DISEASE W (ACUTE) EXACERBATION Status: Acute (3) Pneumothorax Code(s): I50.9 - HEART FAILURE, UNSPECIFIED Status: Acute Qualifiers: Status: acute (4) Morbid obesity with BMI of 40.0-44.9, adult Code(s): E66.01 - MORBID (SEVERE) OBESITY DUE TO EXCESS CALORIES; Z68.41 - BODY MASS INDEX (BMI) 40.0-44.9, ADULT Status: Chronic (5) HTN (hypertension) Code(s): I10 - ESSENTIAL (PRIMARY) HYPERTENSION Status: Chronic Qualifiers: Hypertension type: essential hypertension Qualified Code(s): I10 - Essential (primary) hypertension - Plan * Patient is still intubated, mechanically ventilated in CCU. * Continue Rocephin, Azithromycin and Solumedrol IV * Lasix has been discontinued * Propofol for sedation * GI and DVT Prophylaxis * Patient is on tube feeds * Iatrogenic pneumothorax improving
[2020-02-09] MEDS: hydrALAZINE 20 MG/ML VIAL SLOW IVP PRN (23:37)
[2020-02-10] MEDS: methylPREDNISolone Sod Succ 40 MG VIAL IVP SCH ×4 (02:14→20:46)
[2020-02-10 04:45] LABS: #Monocytes 0.4 thou/uL (0.11-0.59); #Neutrophils 7.9 thou/uL (1.40-6.50); %Eosinophils 0.1 % (0.0-10.0); %Lymphocytes 10.4 % (21.0-51.0); %Monocytes 4.2 % (0.0-10.0); %Neutrophils 85.3 % (42.0-75.0); Hemoglobin 14.3 g/dL (12.0-16.0); Mean Corpuscular HGB CONC 31.5 g/dL (32.0-36.0); Mean Corpuscular Hemoglobin 29.5 pg (27.0-31.0); Mean Corpuscular Volume 93.7 fL (78.0-98.0); Mean Platelet Volume 8.1 fL (7.4-10.4); Platelet Count 245 thou/uL (130-400); RBC Distribution Width 14.4 % (11.5-14.5); Red Blood Cell (RBC) Count 4.84 mill/uL (4.20-5.40); White Blood Cell (WBC) Count 9.3 thou/uL (4.8-10.8)
[2020-02-10 05:04] LABS: Anion Gap 13 mmol/L (10-20); BUN (Urea Nitrogen) 28 mg/dL (9.8-20.1); Calc. Creatinine Clearance 187 mL/min (70-130); Calcium 9.2 mg/dL (7.8-10.44); Carbon Dioxide 34 mmol/L (22-29); Chloride 101 mmol/L (98-107); Estimated GFR-MDRD Greater than 90; Glucose 157 mg/dL (70-105); Potassium 4.8 mmol/L (3.5-5.1); Sodium 143 mmol/L (136-145)
[2020-02-10 06:38] VITALS: BMI 39.3
[2020-02-10] MEDS: hydrALAZINE 20 MG/ML VIAL SLOW IVP PRN (06:54)
[2020-02-10] MEDS: cefTRIAXone\\ROCEPHIN 1 GM in Sodium Chloride 0.9% 100 ML IVPB SCH (10:09)
[2020-02-10] MEDS: Montelukast Sodium 10 mg Tablet PER TUBE SCH (10:10)
[2020-02-10] MEDS: Aspirin 325 MG TAB PER TUBE SCH (10:10)
[2020-02-10] MEDS: Pantoprazole 40 MG GRANULES PACKET PER TUBE SCH (10:11)
[2020-02-10] MEDS: Enoxaparin Sodium 40 MG/0.4 ML SYRINGE SC SCH (10:11)
[2020-02-10] MEDS: Labetalol HCl 100 MG/20 ML VIAL SLOW IVP PRN ×3 (10:25→20:45)
--- NOTE | 2020-02-10 13:21 | PDOC.HOSPP ---
- Subjective Encounter Date: 02/10/20 Encounter Time: 13:19 Subjective: Patient seen for follow-up regarding respiratory failure. She was extubated earlier today. Sitting in bed, reports feeling better. - Objective Vital Signs & Weight: Vital Signs (12 hours) Temp Pulse Resp BP Pulse Ox 02/10/20 10:29 80 16 02/10/20 10:25 68 208/79 H 02/10/20 07:19 81 14 02/10/20 06:54 70 203/93 H 02/10/20 04:00 98.3 F 02/10/20 02:22 66 16 96 Weight Admit Weight 277 lb Weight 259 lb 7.745 oz Most Recent Monitor Data Heart Rate from ECG 66 NIBP 210/88 NIBP BP-Mean 128 Respiration from ECG 21 SpO2 93 I&O: 02/09/20 02/10/20 02/11/20 06:59 06:59 06:59 Intake Total 4174 1066.4 Output Total 3125 1517 Balance 1049 -450.6 Result Diagrams: 02/10/20 04:00 02/10/20 04:00 Additional Labs: I reviewed patient's labs and MAR EKG Reviewed by me: Yes (Telemetry: Normal sinus rhythm) Hospitalist ROS - Review of Systems Respiratory: reports: cough, dry, SOB with excertion. denies: shortness of breath, hemoptysis, pleuritic pain, sputum, wheezing Cardiovascular: denies: chest pain, palpitations, orthopnea, paroxysmal noc. dyspnea, edema, light headedness - Medication Medications: Active Medications Generic Name Dose Route Start Last Admin Trade Name Freq PRN Reason Stop Dose Admin Albuterol/Ipratropium 3 ml 02/06/20 07:03 02/06/20 12:44 Duoneb NEB 3 ml [id number] PRN Administration SOB &/or Wheezing Albuterol/Ipratropium 3 ml 02/09/20 10:30 02/10/20 10:29 Ipratropium/Albuterol Sulfate 3 Ml Neb NEB 3 ml [id number] SVEN Administration Aspirin 325 mg 02/06/20 09:00 02/10/20 10:10 Aspirin PER TUBE 325 mg DAILY SVEN Administration Enoxaparin Sodium 40 mg 02/06/20 09:00 02/10/20 10:11 Lovenox SC 40 mg 0900 SVEN Administration Ceftriaxone Sodium 1 gm/ 100 mls @ 200 mls/hr 02/07/20 09:00 02/10/20 10:09 Sodium Chloride IVPB 100 mls Q24HR SVEN Administration Labetalol HCl 10 mg 02/10/20 08:19 02/10/20 10:25 Labetalol Hcl 100 Mg/20 Ml Vial SLOW IVP 10 mg Q4H PRN Administration SBP Greater Than 180 Methylprednisolone Sodium Succinate 40 mg 02/06/20 09:00 02/10/20 10:11 Solu-Medrol IVP 40 mg Q6H SVEN Administration Montelukast Sodium 10 mg 02/08/20 09:00 02/10/20 10:10 Montelukast Sodium 10 Mg Tablet PER TUBE 10 mg DAILY SVEN Administration Pantoprazole Sodium 40 mg 02/09/20 09:00 02/10/20 10:11 Pantoprazole 40 Mg Granules Packet PER TUBE 40 mg DAILY SVEN Administration - Exam General - other findings: Obese Eye: anicteric sclera ENT: moist mucosa Neck: supple Heart: RRR Respiratory: wheezes Gastrointestinal: soft, non-tender Extremities: no cyanosis Psychiatric: normal affect, normal behavior Hosp A/P - Plan -Assessment (1) Acute respiratory failure with hypoxia and hypercapnia Code(s): J96.01 - ACUTE RESPIRATORY FAILURE WITH HYPOXIA; J96.02 - ACUTE RESPIRATORY FAILURE WITH HYPERCAPNIA Status: Acute (2) COPD exacerbation Code(s): J44.1 - CHRONIC OBSTRUCTIVE PULMONARY DISEASE W (ACUTE) EXACERBATION Status: Acute (3) Pneumothorax Code(s): I50.9 - HEART FAILURE, UNSPECIFIED Status: Acute Qualifiers: Status: acute (4) hypertensive urgency Status: Acute - Plan * Patient extubated earlier today, clinically improving. * She is on Rocephin, Azithromycin and Solumedrol IV, will continue for now * GI and DVT Prophylaxis * Patient is on tube feeds * Iatrogenic pneumothorax improving * Patient's blood pressures were significantly elevated. We will start her on hydralazine 25 mg 3 times daily and amlodipine 5 mg daily. Will give one-time dose of hydralazine 50 mg and amlodipine 5 mg. Will monitor vital signs and titrate antihypertensives as needed.
[2020-02-10] MEDS ORDERED: hydrALAZINE 25 MG TAB PO SCH (13:30)
[2020-02-10] MEDS ORDERED: Amlodipine 5 MG TAB PO SCH (13:30)
--- NOTE | 2020-02-10 14:06 | EKG ---
Test Reason : Blood Pressure : / mmHG Vent. Rate : 064 BPM Atrial Rate : 064 BPM P-R Int : 168 ms QRS Dur : 102 ms QT Int : 488 ms P-R-T Axes : 052 100 052 degrees QTc Int : 503 ms Poor data quality, interpretation may be adversely affected Normal sinus rhythm Rightward axis Possible Anterior infarct , age undetermined Prolonged QT Abnormal ECG Confirmed by MISSY SY ([id number]), continuity editor TERRI GUAJARDO ([id number]) on 02/10/2020 2:06:00 PM Referred By: Confirmed By:MISSY SY
[2020-02-10] MEDS: hydrALAZINE 25 MG TAB PO SCH ×2 (15:54→20:45)
--- NOTE | 2020-02-10 16:18 | RAD ---
EXAM: CHEST ONE VIEW: 02/10/20 HISTORY: Pneumonia. COMPARISON: 02/09/20. FINDINGS: The previously noted right chest tube has been removed without significant pneumothorax. There is shannon e persistent subcutaneous emphysema. Poor inspiratory effort with increased bronchovascular markings bilaterally more so in the bases with probable small pleural effusions and cardiomegaly. The congesti on and pleural effusions appear more marked than on the most recent 02/09/20 study. IMPRESSION: Progressive vascular congestion with minimal interstitial and linear worsening opacities in the perih ilar regions and small bilateral pleural effusions with cardiomegaly. The NG tube and endotracheal tu bes have been removed. Slightly less inspiration which may account for the somewhat more prominent in creased markings. POS: OFF
[2020-02-10] MEDS: cloNIDine 0.1 MG TAB PO PRN ×2 (18:21→22:11)
[2020-02-11] MEDS: methylPREDNISolone Sod Succ 40 MG VIAL IVP SCH ×4 (03:55→21:41)
--- NOTE | 2020-02-11 05:25 | PRG ---
DATE OF SERVICE: 02/10/2020 SUBJECTIVE: Ms. Mejias was successfully extubated yesterday. Her oxygen status has been good and currently on nasal cannula at 3 L. She is awake and alert and has taken a diet without difficulty with choking. Her blood pressure has been fairly high. She cannot tell me the name of medications she takes at home and we will try to contact her pharmacy ([facility] in [place]). She denies pain, nausea, or vomiting. PHYSICAL EXAMINATION: VITAL SIGNS: Blood pressure as high as 210 systolic, heart rate 78, pulse ox 91%, and respiratory rate 15. GENERAL: She is awake and alert. She appears older than her stated age. HEENT: Shows an enlarged neck. She has no oral Qing. LUNGS: Show crepitus over the anterior right chest consistent with a subcutaneous emphysema. She has a right central line, subclavian. The left lung is fairly clear. HEART: Regular rate and rhythm. I do not hear a murmur. ABDOMEN: Obese, mildly distended. There is no guarding or rebound. EXTREMITIES: Show 1+ edema. NEUROLOGICAL: She is intact. LABORATORY DATA: White count 9300, hemoglobin is 14.3 with hematocrit of 43.4, and platelet count 245,000. Electrolytes today include sodium 143, potassium 4.8, chloride 109, CO2 of 34, BUN 28, and creatinine 0.6. IMAGING DATA: Her chest x-ray shows LV prominence and slightly fluffy central vasculature. Lung markings show interstitial prominence. There is no visible pneumothorax. Central line is in place and chest tube has been removed. There is poor inspiration. IMPRESSION: 1. Respiratory failure, requiring mechanical ventilation, now extubated. 2. Right pneumothorax, presumably secondary to mainstem intubation. This has been resolved and chest tube removed. She does have a small amount of subcutaneous emphysema. 3. History of heavy alcohol abuse. She has not had any DTs. We will continue to observe clinically. 4. Hypertension. We will try to get her medication list and resume home medicines, although I am not very convinced that she takes anything consistently. A reasonable medicine to use on a short-term basis given her alcohol and possible withdrawal would be clonidine. PLAN: We will continue current therapies. We will try to get her medication list from home. I am going to have the bandage removed from her chest tube as the Vaseline may be preventing any escape of air. We will try to get her out of bed and advance her diet. From my perspective, she could probably go to the floor once her blood pressure is under a little better control. We will use labetalol IV or clonidine p.o. given her specific clinical situation. Job ID: [id number]
[2020-02-11 05:32] LABS: #Monocytes 0.7 thou/uL (0.11-0.59); #Neutrophils 9.4 thou/uL (1.40-6.50); %Basophils 0.1 % (0.0-1.0); %Eosinophils 0.1 % (0.0-10.0); %Lymphocytes 8.6 % (21.0-51.0); %Monocytes 6.3 % (0.0-10.0); %Neutrophils 84.8 % (42.0-75.0); Mean Corpuscular Volume 93.2 fL (78.0-98.0); Platelet Count 261 thou/uL (130-400)
[2020-02-11 05:59] LABS: Anion Gap 13 mmol/L (10-20); BUN (Urea Nitrogen) 27 mg/dL (9.8-20.1); Calc. Creatinine Clearance 184 mL/min (70-130); Calcium 9.3 mg/dL (7.8-10.44); Carbon Dioxide 33 mmol/L (22-29); Chloride 99 mmol/L (98-107); Estimated GFR-MDRD Greater than 90; Glucose 158 mg/dL (70-105); Potassium 4.5 mmol/L (3.5-5.1); Sodium 140 mmol/L (136-145)
[2020-02-11] MEDS ORDERED: Amlodipine 5 MG TAB PO SCH (09:00)
--- NOTE | 2020-02-11 09:17 | RAD ---
EXAM: CHEST ONE VIEW HISTORY: Pneumonia. Follow-up evaluation. COMPARISON: 02/10/2020 FINDINGS: Right-sided vascular catheter remains in place. Cardiac silhouette is enlarged. There has been interv al increase in patchy parenchymal airspace opacities at each lung base. There are probable small bilateral pleural effusions identified. Pulmonary vascular congestion noted on the prior study does a ppear mildly improved. No other interval change. IMPRESSION: Increase in parenchymal airspace opacities at each lung base which may be related to developing bibas ilar pneumonia. There is question of small bilateral pleural effusions.
[2020-02-11] MEDS: Pantoprazole 40 MG GRANULES PACKET PER TUBE SCH (09:19)
[2020-02-11] MEDS: Aspirin 325 MG TAB PER TUBE SCH (09:19)
[2020-02-11] MEDS: hydrALAZINE 25 MG TAB PO SCH ×3 (09:19→21:40)
[2020-02-11] MEDS: Montelukast Sodium 10 mg Tablet PER TUBE SCH (09:19)
[2020-02-11] MEDS: Enoxaparin Sodium 40 MG/0.4 ML SYRINGE SC SCH (09:20)
[2020-02-11] MEDS: cefTRIAXone\\ROCEPHIN 1 GM in Sodium Chloride 0.9% 100 ML IVPB SCH (09:24)
--- NOTE | 2020-02-11 10:55 | PRG ---
DATE OF SERVICE: 02/11/2020 SUBJECTIVE: Ms. Mejias has done well throughout the night following extubation. She had stable vital signs. She has been able to sit up in the chair and take a diet without difficulty. There has been no significant drainage from her chest tube site. Fortunately, she has had no evidence of alcohol withdrawal symptoms. PHYSICAL EXAMINATION: VITAL SIGNS: Blood pressure 166/82, heart rate 74, saturation 95% on 2 L nasal cannula. GENERAL: She is awake, alert. She still has no significant recollection of events prompting this hospitalization. She denies pain. HEENT: Shows no adenopathy. She has no Qing. NECK: She has no JVD. LUNGS: Bibasilar rhonchi. She has minimal residual subcutaneous emphysema over the anterior upper right chest. The chest tube site beneath the breast has a dry open dressing. HEART: Regular rate and rhythm. There is no murmur. ABDOMEN: Obese and soft. There is no organomegaly. She has 1 to 2+ pretibial edema. LABORATORY DATA: Chest x-ray shows no significant pneumothorax. There is cardiomegaly with LV prominence. There is area of patchy consolidation, especially in the right base, which obscures the diaphragm but not the right heart border. White count today is 11,000, hemoglobin is 14 with hematocrit of 46.6, and platelet count 261,000. Electrolytes include sodium 140, potassium 4.5, chloride 99, CO2 is 33, BUN 27, creatinine 0.6. IMPRESSION: 1. Respiratory failure, now resolved. Exact etiology is unclear. 2. History of alcohol abuse without evidence of DTs. 3. Right pneumothorax, probably secondary to mainstem intubation and over expansion/barotrauma. 4. Hypertension. PLAN: She will continue with current medications as she has much improved taking a diet. From my perspective, she could be transferred either to the step-down unit or to the medical floor. She will continue and complete her current round of therapies. I have not placed her on DT prophylaxis, but will observe clinically. Job ID: [id number]
--- NOTE | 2020-02-11 11:49 | PDOC.HOSPP ---
- Subjective Encounter Date: 02/11/20 Encounter Time: 09:00 Subjective: Pt seen for followup re: respiratory failure. Sitting in chair, states she feels better. - Objective Vital Signs & Weight: Vital Signs (12 hours) Temp Pulse Resp BP Pulse Ox 02/11/20 10:55 66 16 02/11/20 09:20 74 166/82 H 02/11/20 09:19 74 166/82 H 02/11/20 08:00 97.8 F 02/11/20 07:45 74 18 02/11/20 04:00 98.2 F 02/11/20 02:10 71 17 97 02/11/20 00:00 98.1 F Weight Admit Weight 277 lb Weight 259 lb 7.745 oz Most Recent Monitor Data Heart Rate from ECG 57 NIBP 159/76 NIBP BP-Mean 103 Respiration from ECG 20 SpO2 100 I&O: 02/10/20 02/11/20 02/12/20 06:59 06:59 06:59 Intake Total 1066.4 1090 320 Output Total 1517 1542 175 Balance -450.6 -452 145 Result Diagrams: 02/11/20 05:15 02/11/20 05:15 Additional Labs: labs and MARs reviewed by co Hospitalist ROS - Review of Systems Constitutional: denies: fever, chills, sweats, weakness, malaise Respiratory: reports: cough, dry, SOB with excertion Cardiovascular: denies: chest pain, palpitations, orthopnea, paroxysmal noc. dyspnea, edema, light headedness - Medication Medications: Active Medications Generic Name Dose Route Start Last Admin Trade Name Freq PRN Reason Stop Dose Admin Albuterol/Ipratropium 3 ml 02/06/20 07:03 02/06/20 12:44 Duoneb NEB 3 ml [id number] PRN Administration SOB &/or Wheezing Albuterol/Ipratropium 3 ml 02/09/20 10:30 02/11/20 10:55 Ipratropium/Albuterol Sulfate 3 Ml Neb NEB 3 ml [id number] SVEN Administration Amlodipine Besylate 5 mg 02/11/20 09:00 02/11/20 09:20 Amlodipine 5 Mg Tab PO 5 mg DAILY SVEN Administration Aspirin 325 mg 02/06/20 09:00 02/11/20 09:19 Aspirin PER TUBE 325 mg DAILY SVEN Administration Clonidine 0.1 mg 02/10/20 13:22 02/10/20 22:11 Clonidine 0.1 Mg Tab PO 0.1 mg Q4H PRN Administration SBP Greater Than 180 Enoxaparin Sodium 40 mg 02/06/20 09:00 02/11/20 09:20 Lovenox SC 40 mg 0900 SVEN Administration Hydralazine HCl 25 mg 02/10/20 15:00 02/11/20 09:19 Hydralazine 25 Mg Tab PO 25 mg TID SVEN Administration Ceftriaxone Sodium 1 gm/ 100 mls @ 200 mls/hr 02/07/20 09:00 02/11/20 09:24 Sodium Chloride IVPB 100 mls Q24HR SVEN Administration Labetalol HCl 10 mg 02/10/20 08:19 02/10/20 20:45 Labetalol Hcl 100 Mg/20 Ml Vial SLOW IVP 10 mg Q4H PRN Administration SBP Greater Than 180 Methylprednisolone Sodium Succinate 40 mg 02/06/20 09:00 02/11/20 09:25 Solu-Medrol IVP 40 mg Q6H SVEN Administration Montelukast Sodium 10 mg 02/08/20 09:00 02/11/20 09:19 Montelukast Sodium 10 Mg Tablet PER TUBE 10 mg DAILY SVEN Administration Pantoprazole Sodium 40 mg 02/09/20 09:00 02/11/20 09:19 Pantoprazole 40 Mg Granules Packet PER TUBE 40 mg DAILY SVEN Administration - Exam General - other findings: Obese Eye: anicteric sclera ENT: moist mucosa Neck: supple, no JVD Heart: RRR, no rubs Respiratory: CTAB Gastrointestinal: soft, non-tender Extremities: no cyanosis Psychiatric: normal affect, normal behavior Hosp A/P - Plan -Assessment (1) Acute respiratory failure with hypoxia and hypercapnia Code(s): J96.01 - ACUTE RESPIRATORY FAILURE WITH HYPOXIA; J96.02 - ACUTE RESPIRATORY FAILURE WITH HYPERCAPNIA Status: Acute (2) COPD exacerbation Code(s): J44.1 - CHRONIC OBSTRUCTIVE PULMONARY DISEASE W (ACUTE) EXACERBATION Status: Acute (3) Pneumothorax Code(s): I50.9 - HEART FAILURE, UNSPECIFIED Status: Acute Qualifiers: Status: acute (4) hypertensive urgency Status: Acute - Plan * Patient extubated yesterday. Clinically improved. * Continue Rocephin, Azithromycin and Solumedrol IV * GI and DVT Prophylaxis * Pt is on oral diet. * Iatrogenic pneumothorax improving * Patient's blood pressures improved but still high. Increase amlodipine to 10 mg daily.
[2020-02-11] MEDS ORDERED: Amlodipine 10 MG TAB PO SCH (12:00)
[2020-02-11] MEDS ORDERED: Lisinopril 5 MG TAB PO SCH (12:00)
[2020-02-11] MEDS: cloNIDine 0.1 MG TAB PO PRN (15:13)
[2020-02-12] MEDS: methylPREDNISolone Sod Succ 40 MG VIAL IVP SCH ×2 (03:13→09:00)
[2020-02-12 04:34] LABS: #Lymphocytes 0.8 thou/uL (1.20-3.40); #Monocytes 0.6 thou/uL (0.11-0.59); %Basophils 0.1 % (0.0-1.0); %Eosinophils 0.1 % (0.0-10.0); %Lymphocytes 7.7 % (21.0-51.0); %Monocytes 5.7 % (0.0-10.0); %Neutrophils 86.5 % (42.0-75.0); Hemoglobin 13.8 g/dL (12.0-16.0); Mean Corpuscular Hemoglobin 26.8 pg (27.0-31.0); Mean Corpuscular Volume 92.3 fL (78.0-98.0); Mean Platelet Volume 8.2 fL (7.4-10.4); Platelet Count 267 thou/uL (130-400); RBC Distribution Width 13.9 % (11.5-14.5); Red Blood Cell (RBC) Count 5.15 mill/uL (4.20-5.40); White Blood Cell (WBC) Count 10.4 thou/uL (4.8-10.8)
[2020-02-12 04:47] LABS: Anion Gap 15 mmol/L (10-20); BUN (Urea Nitrogen) 23 mg/dL (9.8-20.1); Calc. Creatinine Clearance 184 mL/min (70-130); Calcium 9.1 mg/dL (7.8-10.44); Carbon Dioxide 28 mmol/L (22-29); Chloride 98 mmol/L (98-107); Estimated GFR-MDRD Greater than 90; Glucose 199 mg/dL (70-105); Potassium 4.9 mmol/L (3.5-5.1); Sodium 136 mmol/L (136-145)
--- NOTE | 2020-02-12 07:52 | RAD ---
Exam: Chest one view HISTORY:Pneumonia Comparison: 02/11/2020 FINDINGS: Cardiac silhouette:Cardiomegaly Aorta: Elongated Pulmonary vessels: Within normal limits Costophrenic angles: Clear LUNGS: Scattered interstitial opacities with more focal alveolar opacification the lung bases. Pneumothorax: None Osseous abnormalities: None IMPRESSION: 1. Cardiomegaly with interstitial and alveolar opacities. Correlate for congestive heart failure. Sup erimposed pneumonia cannot be excluded. Continued surveillance is recommended.
[2020-02-12] MEDS: Amlodipine 10 MG TAB PO SCH (08:59)
[2020-02-12] MEDS: Aspirin 325 MG TAB PER TUBE SCH (08:59)
[2020-02-12] MEDS ORDERED: Lisinopril 2.5 MG TAB PO SCH (09:00)
[2020-02-12] MEDS: Pantoprazole 40 MG GRANULES PACKET PER TUBE SCH (09:00)
[2020-02-12] MEDS: Montelukast Sodium 10 mg Tablet PER TUBE SCH (09:00)
[2020-02-12] MEDS: hydrALAZINE 25 MG TAB PO SCH ×3 (09:00→19:53)
[2020-02-12] MEDS: Enoxaparin Sodium 40 MG/0.4 ML SYRINGE SC SCH (09:01)
[2020-02-12] MEDS: cefTRIAXone\\ROCEPHIN 1 GM in Sodium Chloride 0.9% 100 ML IVPB SCH (09:06)
--- NOTE | 2020-02-12 10:53 | PRG ---
DATE OF SERVICE: 02/12/2020 SUBJECTIVE: This morning, she is less short of breath. OBJECTIVE: VITAL SIGNS: Sats 97% on 2 L, temperature 97, pulse 75, and blood pressure 199/80. CHEST: Decreased breath sounds. No wheezing. CARDIAC: Normal S1, S2 . LABORATORY DATA: Unremarkable. X-ray shows nonspecific bibasilar infiltrates, right greater than left. No pneumothorax. Cardiomegaly. ASSESSMENT: Chronic obstructive pulmonary disease exacerbation, bronchitis, right pneumothorax, morbid obesity, tobacco abuse, hypertension. PLAN: We will switch her to oral medication and aggressive PT. Hopefully, she can be discharged home in the next several days. She is probably going to need a baseline outpatient sleep study. She can then follow up with primary care physician. Job ID: [id number]
--- NOTE | 2020-02-12 12:42 | PDOC.HOSPP ---
- Subjective Encounter Date: 02/12/20 Encounter Time: 07:20 Subjective: Patient seen for follow-up for acute respiratory failure. She reports feeling better. She denies fevers or chills. - Objective Vital Signs & Weight: Vital Signs (12 hours) Temp Pulse Resp BP Pulse Ox 02/12/20 11:06 97.7 F 76 19 162/71 H 96 02/12/20 10:42 82 16 98 02/12/20 08:12 97 02/12/20 07:56 97.5 F L 75 20 199/80 H 97 02/12/20 06:43 89 L 02/12/20 06:41 94 16 89 L 02/12/20 03:09 98.0 F 73 18 173/75 H 94 L Weight Admit Weight 277 lb Weight 259 lb 7.745 oz Most Recent Monitor Data Heart Rate from ECG 73 NIBP 133/75 NIBP BP-Mean 94 Respiration from ECG 18 SpO2 100 I&O: 02/11/20 02/12/20 02/13/20 06:59 06:59 06:59 Intake Total 1090 1650 Output Total 1542 1705 Balance -452 -55 Result Diagrams: 02/12/20 04:06 02/12/20 04:06 Additional Labs: I reviewed patient's labs and MAR EKG Reviewed by me: Yes (Telemetry: Normal sinus rhythm) Hospitalist ROS - Review of Systems Constitutional: reports: weakness Respiratory: reports: cough, dry, SOB with excertion Cardiovascular: denies: chest pain, palpitations, orthopnea, paroxysmal noc. dyspnea, edema, light headedness Skin: denies: rash, lesions, david, bruising Neurological: reports: weakness - Medication Medications: Active Medications Generic Name Dose Route Start Last Admin Trade Name Freq PRN Reason Stop Dose Admin Albuterol/Ipratropium 3 ml 02/06/20 07:03 02/06/20 12:44 Duoneb NEB 3 ml [id number] PRN Administration SOB &/or Wheezing Albuterol/Ipratropium 3 ml 02/09/20 10:30 02/12/20 10:42 Ipratropium/Albuterol Sulfate 3 Ml Neb NEB 3 ml [id number] SVEN Administration Amlodipine Besylate 10 mg 02/12/20 09:00 02/12/20 08:59 Amlodipine 10 Mg Tab PO 10 mg DAILY SVEN Administration Aspirin 325 mg 02/06/20 09:00 02/12/20 08:59 Aspirin PER TUBE 325 mg DAILY SVEN Administration Clonidine 0.1 mg 02/10/20 13:22 02/11/20 15:13 Clonidine 0.1 Mg Tab PO 0.1 mg Q4H PRN Administration SBP Greater Than 180 Enoxaparin Sodium 40 mg 02/06/20 09:00 02/12/20 09:01 Lovenox SC 40 mg 0900 SVEN Administration Hydralazine HCl 25 mg 02/10/20 15:00 02/12/20 09:00 Hydralazine 25 Mg Tab PO 25 mg TID SVEN Administration Labetalol HCl 10 mg 02/10/20 08:19 02/10/20 20:45 Labetalol Hcl 100 Mg/20 Ml Vial SLOW IVP 10 mg Q4H PRN Administration SBP Greater Than 180 Montelukast Sodium 10 mg 02/08/20 09:00 02/12/20 09:00 Montelukast Sodium 10 Mg Tablet PER TUBE 10 mg DAILY SVEN Administration Pantoprazole Sodium 40 mg 02/09/20 09:00 02/12/20 09:00 Pantoprazole 40 Mg Granules Packet PER TUBE 40 mg DAILY SVEN Administration - Exam General - other findings: Morbid obesity Eye: anicteric sclera ENT: moist mucosa Neck: supple Heart: RRR Respiratory: CTAB Gastrointestinal: soft, non-tender Skin: no rashes Psychiatric: normal affect, normal behavior Hosp A/P - Plan -Assessment (1) Acute respiratory failure with hypoxia and hypercapnia Code(s): J96.01 - ACUTE RESPIRATORY FAILURE WITH HYPOXIA; J96.02 - ACUTE RESPIRATORY FAILURE WITH HYPERCAPNIA Status: Acute (2) COPD exacerbation Code(s): J44.1 - CHRONIC OBSTRUCTIVE PULMONARY DISEASE W (ACUTE) EXACERBATION Status: Acute (3) Pneumothorax Code(s): I50.9 - HEART FAILURE, UNSPECIFIED Status: Acute Qualifiers: Status: acute (4) hypertensive urgency Status: Acute - Plan * Patient slowly improving. * Antibiotics and steroids have been switched to oral. * GI and DVT Prophylaxis * Pt is on oral diet. * Iatrogenic pneumothorax improved. * Patient's blood pressures improved but still high. Add lisinopril 5 mg daily. * DC Bazan catheter. * Ambulate patient. * Transfer to medical floor. No current indication for telemetry.
[2020-02-12] MEDS ORDERED: Lisinopril 5 MG TAB PO SCH (12:45)
[2020-02-12] MEDS: Mometasone 200 MCG/Formoterol 5 MCG 120 PUFF INHALER INH SCH (19:05)
[2020-02-12] MEDS: Doxycycline 100 MG CAP PO SCH (19:53)
--- NOTE | 2020-02-13 07:39 | RAD ---
Chest AP view INDICATION: Chest pain COMPARISON: February 12, 2020 FINDINGS: Lungs: Bibasilar airspace disease persists Cardiac silhouette: Cardiomegaly is similar Pulmonary vasculature: Vascular congestion is stable Pleural spaces: Small bilateral pleural effusions persist Upper abdomen: No abnormality seen. Osseous structures: No acute osseous abnormality. Additional findings: None. IMPRESSION: Stable exam
[2020-02-13] MEDS: Mometasone 200 MCG/Formoterol 5 MCG 120 PUFF INHALER INH SCH ×2 (07:44→18:44)
[2020-02-13] MEDS: Aspirin 325 MG TAB PER TUBE SCH (08:25)
[2020-02-13] MEDS: Pantoprazole 40 MG GRANULES PACKET PER TUBE SCH (08:25)
[2020-02-13] MEDS: predniSONE 20 MG TAB PO SCH (08:26)
[2020-02-13] MEDS: hydrALAZINE 25 MG TAB PO SCH ×3 (08:26→19:59)
[2020-02-13] MEDS: Amlodipine 10 MG TAB PO SCH (08:26)
[2020-02-13] MEDS: Lisinopril 5 MG TAB PO SCH (08:26)
[2020-02-13] MEDS: Montelukast Sodium 10 mg Tablet PER TUBE SCH (08:26)
[2020-02-13] MEDS: Enoxaparin Sodium 40 MG/0.4 ML SYRINGE SC SCH (08:30)
--- NOTE | 2020-02-13 09:54 | PRG ---
DATE OF SERVICE: 02/13/2020 SUBJECTIVE: Tammie Mejias is doing well. OBJECTIVE: VITAL SIGNS: Pulse 68, saturations are 96%, respiratory rate 16, blood pressure 130/80. LUNGS: Decreased breath sounds. No wheezing. CARDIAC: Normal S1, S2. No gallops. ABDOMEN: Soft. No mass. ASSESSMENT: Chronic obstructive pulmonary disease exacerbation, respiratory failure, morbid obesity. PLAN: P.o. antibiotics and steroids were initiated. Discontinue Bazan. Hopefully, she can be sent home in the next several days. Job ID: [id number]
[2020-02-13] MEDS: Doxycycline 100 MG CAP PO SCH ×2 (11:05→19:59)
--- NOTE | 2020-02-13 13:06 | PDOC.HOSPP ---
- Subjective Encounter Date: 02/13/20 Encounter Time: 09:30 Subjective: Patient seen for follow-up regarding acute hypoxic respiratory failure. Reports she feels better. Not ambulating much. - Objective Vital Signs & Weight: Vital Signs (12 hours) Temp Pulse Resp BP Pulse Ox 02/13/20 10:11 66 14 95 02/13/20 08:26 68 02/13/20 08:00 96 02/13/20 07:44 68 16 96 02/13/20 07:37 97.9 F 68 16 145/79 H 96 02/13/20 04:00 97.8 F 61 18 147/81 H 97 02/13/20 02:13 12 Weight Admit Weight 277 lb 8.992 oz Weight 259 lb 7.745 oz Most Recent Monitor Data Heart Rate from ECG 73 NIBP 133/75 NIBP BP-Mean 94 Respiration from ECG 18 SpO2 100 I&O: 02/12/20 02/13/20 02/14/20 06:59 06:59 06:59 Intake Total 1650 940 360 Output Total 1705 2300 Balance -55 -1360 360 Result Diagrams: 02/12/20 04:06 02/12/20 04:06 Additional Labs: I reviewed patient's labs and [facility] Hospitalist ROS - Review of Systems Respiratory: reports: SOB with excertion. denies: cough, shortness of breath, pleuritic pain, wheezing Cardiovascular: denies: chest pain, palpitations, orthopnea, paroxysmal noc. dyspnea, edema, light headedness, other - Medication Medications: Active Medications Generic Name Dose Route Start Last Admin Trade Name Freq PRN Reason Stop Dose Admin Albuterol/Ipratropium 3 ml 02/06/20 07:03 02/06/20 12:44 Duoneb NEB 3 ml [id number] PRN Administration SOB &/or Wheezing Albuterol/Ipratropium 3 ml 02/09/20 10:30 02/13/20 10:11 Ipratropium/Albuterol Sulfate 3 Ml Neb NEB 3 ml [id number] SVEN Administration Amlodipine Besylate 10 mg 02/12/20 09:00 02/13/20 08:26 Amlodipine 10 Mg Tab PO 10 mg DAILY SVEN Administration Aspirin 325 mg 02/06/20 09:00 02/13/20 08:25 Aspirin PER TUBE 325 mg DAILY SVEN Administration Clonidine 0.1 mg 02/10/20 13:22 02/11/20 15:13 Clonidine 0.1 Mg Tab PO 0.1 mg Q4H PRN Administration SBP Greater Than 180 Doxycycline Hyclate 100 mg 02/12/20 21:00 02/13/20 11:05 Doxycycline 100 Mg Cap PO 02/19/20 21:01 100 mg BID SVEN Administration Enoxaparin Sodium 40 mg 02/06/20 09:00 02/13/20 08:30 Lovenox SC 40 mg 899 SVEN Administration Hydralazine HCl 25 mg 02/10/20 15:00 02/13/20 08:26 Hydralazine 25 Mg Tab PO 25 mg TID SVEN Administration Labetalol HCl 10 mg 02/10/20 08:19 02/10/20 20:45 Labetalol Hcl 100 Mg/20 Ml Vial SLOW IVP 10 mg Q4H PRN Administration SBP Greater Than 180 Lisinopril 5 mg 02/13/20 09:00 02/13/20 08:26 Lisinopril 5 Mg Tab PO 5 mg DAILY SVEN Administration Mometasone Furoate/Formoterol Fumar 2 puff 02/12/20 18:30 02/13/20 07:44 Mometasone 200 Mcg/Formoterol 5 Mcg 120 Puff Inhaler INH 2 puff BID-RT SVEN Administration Montelukast Sodium 10 mg 02/08/20 09:00 02/13/20 08:26 Montelukast Sodium 10 Mg Tablet PER TUBE 10 mg DAILY SVEN Administration Pantoprazole Sodium 40 mg 02/09/20 09:00 02/13/20 08:25 Pantoprazole 40 Mg Granules Packet PER TUBE 40 mg DAILY SVEN Administration Prednisone 40 mg 02/13/20 08:00 02/13/20 08:26 Prednisone 20 Mg Tab PO 40 mg QAM-WM SVEN Administration - Exam General - other findings: Obese Eye: anicteric sclera ENT: moist mucosa Neck: supple Heart: RRR Respiratory: CTAB Gastrointestinal: soft, non-tender Musculoskeletal: no muscle wasting Psychiatric: normal affect, normal behavior Hosp A/P - Plan -Assessment (1) Acute respiratory failure with hypoxia and hypercapnia Code(s): J96.01 - ACUTE RESPIRATORY FAILURE WITH HYPOXIA; J96.02 - ACUTE RESPIRATORY FAILURE WITH HYPERCAPNIA Status: Acute (2) COPD exacerbation Code(s): J44.1 - CHRONIC OBSTRUCTIVE PULMONARY DISEASE W (ACUTE) EXACERBATION Status: Acute (3) Pneumothorax Code(s): I50.9 - HEART FAILURE, UNSPECIFIED Status: Acute Qualifiers: Status: acute (4) hypertensive urgency Status: Acute - Plan * Patient slowly improving. * Continue oral antibiotics and steroids * GI and DVT Prophylaxis * Pt is on oral diet. * Iatrogenic pneumothorax improved. * Patient's blood pressures improved but still high. Add lisinopril 5 mg daily. * Ambulate patient. * Try to wean patient off of oxygen.
[2020-02-14] MEDS: Mometasone 200 MCG/Formoterol 5 MCG 120 PUFF INHALER INH SCH ×2 (05:18→18:25)
[2020-02-14] MEDS: Doxycycline 100 MG CAP PO SCH ×2 (08:22→22:09)
[2020-02-14] MEDS: Montelukast Sodium 10 mg Tablet PER TUBE SCH (08:22)
[2020-02-14] MEDS: hydrALAZINE 25 MG TAB PO SCH ×3 (08:22→22:09)
[2020-02-14] MEDS: Aspirin 325 MG TAB PER TUBE SCH (08:22)
[2020-02-14] MEDS: Lisinopril 5 MG TAB PO SCH (08:22)
[2020-02-14] MEDS: Amlodipine 10 MG TAB PO SCH (08:22)
[2020-02-14] MEDS: predniSONE 20 MG TAB PO SCH (08:23)
[2020-02-14] MEDS: Enoxaparin Sodium 40 MG/0.4 ML SYRINGE SC SCH (08:24)
[2020-02-14] MEDS: Pantoprazole 40 MG GRANULES PACKET PER TUBE SCH (08:25)
--- NOTE | 2020-02-14 09:38 | PRG ---
DATE OF SERVICE: 02/14/2020 SUBJECTIVE: Tammie Mejias is much improved this morning. She says she is less short of breath, less cough. X-ray shows stable findings. OBJECTIVE: VITAL SIGNS: Temperature 98, pulse 72, respiratory rate 20, sats 90% on room air, blood pressure 170/74. CHEST: No wheezing. No crackles. CARDIAC: Normal S1, S2. No gallops. ABDOMEN: No masses. ASSESSMENT: 1. Chronic obstructive pulmonary disease. 2. Spontaneous pneumothorax. 3. Chronic left pleural effusion. PLAN: She is ready to be discharged to rehab. I would discontinue her Bazan. Job ID: [id number]
--- NOTE | 2020-02-14 10:14 | RAD ---
RADIOGRAPH CHEST 1 VIEW: Date: 02/14/2020. Time: 5:27 a.m. HISTORY: A 59-year-old female with pneumonia. COMPARISON: 02/13/2020, 5:04 a.m. FINDINGS: Bilateral pleural effusions. Airspace densities at bilateral lung bases, left more than right. The right may be subsegmental atelectasis abutting the right hemidiaphragm. Mild pulmonary vasculature e ngorgement. Cardiomegaly. Left lower lobe opacification and/or elevated left hemidiaphragm. No pne umothorax. No major interval change. IMPRESSION: No major interval change. JN [] POS: [facility]DI
--- NOTE | 2020-02-14 14:05 | PDOC.HOSPP ---
- Subjective Encounter Date: 02/14/20 Encounter Time: 09:30 Subjective: Patient follow-up for respiratory failure. Sitting in chair, still on supplemental oxygen. Reports feeling better. - Objective Vital Signs & Weight: Vital Signs (12 hours) Temp Pulse Resp BP Pulse Ox 02/14/20 10:10 65 16 96 02/14/20 08:00 96 02/14/20 07:48 98.0 F 72 20 117/74 96 02/14/20 05:18 67 16 97 02/14/20 05:16 67 16 97 Weight Admit Weight 277 lb 8.992 oz Weight 259 lb 7.745 oz Most Recent Monitor Data Heart Rate from ECG 73 NIBP 133/75 NIBP BP-Mean 94 Respiration from ECG 18 SpO2 100 I&O: 02/13/20 02/14/20 02/15/20 06:59 06:59 06:59 Intake Total 940 1410 Output Total 2300 4050 Balance -1360 -2640 Result Diagrams: 02/12/20 04:06 02/12/20 04:06 Additional Labs: I reviewed patient's labs and MAR Hospitalist ROS - Review of Systems Respiratory: reports: SOB with excertion. denies: cough, shortness of breath, pleuritic pain, wheezing Cardiovascular: denies: chest pain, palpitations, orthopnea, paroxysmal noc. dyspnea, edema, light headedness - Medication Medications: Active Medications Generic Name Dose Route Start Last Admin Trade Name Freq PRN Reason Stop Dose Admin Albuterol/Ipratropium 3 ml 02/06/20 07:03 02/06/20 12:44 Duoneb NEB 3 ml [id number] PRN Administration SOB &/or Wheezing Albuterol/Ipratropium 3 ml 02/09/20 10:30 02/14/20 13:59 Ipratropium/Albuterol Sulfate 3 Ml Neb NEB 3 ml [id number] SVEN Administration Amlodipine Besylate 10 mg 02/12/20 09:00 02/14/20 08:22 Amlodipine 10 Mg Tab PO 10 mg DAILY SVEN Administration Aspirin 325 mg 02/06/20 09:00 02/14/20 08:22 Aspirin PER TUBE 325 mg DAILY SVEN Administration Clonidine 0.1 mg 02/10/20 13:22 02/11/20 15:13 Clonidine 0.1 Mg Tab PO 0.1 mg Q4H PRN Administration SBP Greater Than 180 Doxycycline Hyclate 100 mg 02/12/20 21:00 02/14/20 08:22 Doxycycline 100 Mg Cap PO 02/19/20 21:01 100 mg BID SVEN Administration Enoxaparin Sodium 40 mg 02/06/20 09:00 02/14/20 08:24 Lovenox SC 40 mg 0900 SVEN Administration Hydralazine HCl 25 mg 02/10/20 15:00 02/14/20 08:22 Hydralazine 25 Mg Tab PO 25 mg TID SVEN Administration Labetalol HCl 10 mg 02/10/20 08:19 02/10/20 20:45 Labetalol Hcl 100 Mg/20 Ml Vial SLOW IVP 10 mg Q4H PRN Administration SBP Greater Than 180 Lisinopril 5 mg 02/13/20 09:00 02/14/20 08:22 Lisinopril 5 Mg Tab PO 5 mg DAILY SVEN Administration Mometasone Furoate/Formoterol Fumar 2 puff 02/12/20 18:30 02/14/20 05:18 Mometasone 200 Mcg/Formoterol 5 Mcg 120 Puff Inhaler INH 2 puff BID-RT SVEN Administration Montelukast Sodium 10 mg 02/08/20 09:00 02/14/20 08:22 Montelukast Sodium 10 Mg Tablet PER TUBE 10 mg DAILY SVEN Administration Pantoprazole Sodium 40 mg 02/09/20 09:00 02/14/20 08:25 Pantoprazole 40 Mg Granules Packet PER TUBE Not Given DAILY [facility] Prednisone 40 mg 02/13/20 08:00 02/14/20 08:23 Prednisone 20 Mg Tab PO 40 mg QAM-WM SVEN Administration - Exam General - other findings: Obese Eye: anicteric sclera ENT: moist mucosa Neck: supple Heart: RRR Respiratory: CTAB Gastrointestinal: soft, non-tender Extremities: no cyanosis Skin: no rashes Psychiatric: normal affect, normal behavior Hosp A/P - Plan -Assessment (1) Acute respiratory failure with hypoxia and hypercapnia Code(s): J96.01 - ACUTE RESPIRATORY FAILURE WITH HYPOXIA; J96.02 - ACUTE RESPIRATORY FAILURE WITH HYPERCAPNIA Status: Acute (2) COPD exacerbation Code(s): J44.1 - CHRONIC OBSTRUCTIVE PULMONARY DISEASE W (ACUTE) EXACERBATION Status: Acute (3) Pneumothorax Code(s): I50.9 - HEART FAILURE, UNSPECIFIED Status: Acute Qualifiers: Status: acute (4) hypertensive urgency Status: Acute - Plan * Patient slowly improving. Discontinue Bazan catheter. * Patient is on oral antibiotics and steroids * Iatrogenic pneumothorax improved. * Pretension is controlled today, after adding lisinopril yesterday. * Ambulate patient. * Try to wean patient off of oxygen.
[2020-02-15] MEDS: Mometasone 200 MCG/Formoterol 5 MCG 120 PUFF INHALER INH SCH ×2 (07:31→18:31)
[2020-02-15] MEDS: Aspirin 325 MG TAB PER TUBE SCH (08:49)
[2020-02-15] MEDS: Pantoprazole 40 MG GRANULES PACKET PER TUBE SCH (08:49)
[2020-02-15] MEDS: Doxycycline 100 MG CAP PO SCH ×2 (08:50→22:03)
[2020-02-15] MEDS: Montelukast Sodium 10 mg Tablet PER TUBE SCH (08:50)
[2020-02-15] MEDS: Enoxaparin Sodium 40 MG/0.4 ML SYRINGE SC SCH (08:51)
[2020-02-15] MEDS: predniSONE 20 MG TAB PO SCH (08:51)
--- NOTE | 2020-02-15 09:23 | PRG ---
DATE OF SERVICE: 02/15/2020 SUBJECTIVE: Tammie Mejias is a 59-year-old morbidly obese female, status post respiratory failure and pneumothorax. She is doing better. OBJECTIVE: VITAL SIGNS: Temperature 98, pulse 76, respiratory rate 18, saturations 95% on room air, blood pressure 90/50. CHEST: Decreased breath sounds. No wheezing. CARDIAC: Normal S1, S2. ABDOMEN: No masses. ASSESSMENT AND PLAN: Chronic obstructive pulmonary disease, respiratory failure, morbid obesity, improved. She is on steroids, neb treatments, eventually rehab. We will follow. Job ID: [id number]
[2020-02-15] MEDS: Amlodipine 10 MG TAB PO SCH (11:44)
[2020-02-15] MEDS: hydrALAZINE 25 MG TAB PO SCH ×3 (11:44→22:02)
[2020-02-15] MEDS: Lisinopril 5 MG TAB PO SCH (11:45)
--- NOTE | 2020-02-15 17:42 | PDOC.HOSPP ---
- Subjective Encounter Date: 02/15/20 Encounter Time: 09:00 Subjective: Patient seen for follow-up regarding acute hypoxic respiratory failure. Reports feeling better today. - Objective Vital Signs & Weight: Vital Signs (12 hours) Temp Pulse Resp BP BP BP Pulse Ox 02/15/20 16:54 98.1 F 80 20 112/69 94 L 02/15/20 15:21 85 117/69 02/15/20 13:59 83 16 93 L 02/15/20 12:27 98.0 F 81 20 128/77 94 L 02/15/20 11:45 81 128/77 02/15/20 11:44 81 128/77 02/15/20 10:13 82 18 93 L 02/15/20 09:06 02/15/20 08:32 98.1 F 76 18 94/54 L 94 L 02/15/20 07:31 80 18 93 L Pulse Ox Pulse Ox Pulse Ox 02/15/20 16:54 02/15/20 15:21 02/15/20 13:59 02/15/20 12:27 02/15/20 11:45 02/15/20 11:44 02/15/20 10:13 02/15/20 09:06 94 L 90 L 93 L 02/15/20 08:32 02/15/20 07:31 Weight Admit Weight 277 lb 8.992 oz Weight 259 lb 7.745 oz Most Recent Monitor Data Heart Rate from ECG 73 NIBP 133/75 NIBP BP-Mean 94 Respiration from ECG 18 SpO2 100 I&O: 02/14/20 02/15/20 02/16/20 06:59 06:59 06:59 Intake Total 1410 2150 Output Total 4050 3000 Balance -2640 -850 Result Diagrams: 02/12/20 04:06 02/12/20 04:06 Additional Labs: I reviewed patient's labs and MAR Hospitalist ROS - Review of Systems Constitutional: reports: weakness Respiratory: reports: SOB with excertion. denies: cough, shortness of breath, pleuritic pain, wheezing Cardiovascular: denies: chest pain, palpitations, orthopnea, paroxysmal noc. dyspnea, edema, light headedness - Medication Medications: Active Medications Generic Name Dose Route Start Last Admin Trade Name Freq PRN Reason Stop Dose Admin Albuterol/Ipratropium 3 ml 02/06/20 07:03 02/06/20 12:44 Duoneb NEB 3 ml [id number] PRN Administration SOB &/or Wheezing Albuterol/Ipratropium 3 ml 02/09/20 10:30 02/15/20 13:59 Ipratropium/Albuterol Sulfate 3 Ml Neb NEB 3 ml [id number] SVEN Administration Amlodipine Besylate 10 mg 02/12/20 09:00 02/15/20 11:44 Amlodipine 10 Mg Tab PO 10 mg DAILY SVEN Administration Aspirin 325 mg 02/06/20 09:00 02/15/20 08:49 Aspirin PER TUBE 325 mg DAILY SVEN Administration Clonidine 0.1 mg 02/10/20 13:22 02/11/20 15:13 Clonidine 0.1 Mg Tab PO 0.1 mg Q4H PRN Administration SBP Greater Than 180 Doxycycline Hyclate 100 mg 02/12/20 21:00 02/15/20 08:50 Doxycycline 100 Mg Cap PO 02/19/20 21:01 100 mg BID SVEN Administration Enoxaparin Sodium 40 mg 02/06/20 09:00 02/15/20 08:51 Lovenox SC 40 mg 899 SVEN Administration Hydralazine HCl 25 mg 02/10/20 15:00 02/15/20 15:21 Hydralazine 25 Mg Tab PO 25 mg TID SVEN Administration Labetalol HCl 10 mg 02/10/20 08:19 02/10/20 20:45 Labetalol Hcl 100 Mg/20 Ml Vial SLOW IVP 10 mg Q4H PRN Administration SBP Greater Than 180 Lisinopril 5 mg 02/13/20 09:00 02/15/20 11:45 Lisinopril 5 Mg Tab PO 5 mg DAILY SVEN Administration Mometasone Furoate/Formoterol Fumar 2 puff 02/12/20 18:30 02/15/20 07:31 Mometasone 200 Mcg/Formoterol 5 Mcg 120 Puff Inhaler INH 2 puff BID-RT SVEN Administration Montelukast Sodium 10 mg 02/08/20 09:00 02/15/20 08:50 Montelukast Sodium 10 Mg Tablet PER TUBE 10 mg DAILY SVEN Administration Pantoprazole Sodium 40 mg 02/09/20 09:00 02/15/20 08:49 Pantoprazole 40 Mg Granules Packet PER TUBE 40 mg DAILY SVEN Administration Prednisone 40 mg 02/13/20 08:00 02/15/20 08:51 Prednisone 20 Mg Tab PO 40 mg QAM-WM SVEN Administration - Exam General - other findings: Morbid obesity Eye: anicteric sclera ENT: no oropharyngeal lesions Neck: supple Heart: RRR Respiratory: CTAB Gastrointestinal: soft, non-tender Extremities: no cyanosis Skin: normal turgor Psychiatric: normal affect, normal behavior Hosp A/P - Plan -Assessment (1) Acute respiratory failure with hypoxia and hypercapnia Code(s): J96.01 - ACUTE RESPIRATORY FAILURE WITH HYPOXIA; J96.02 - ACUTE RESPIRATORY FAILURE WITH HYPERCAPNIA Status: Acute (2) COPD exacerbation Code(s): J44.1 - CHRONIC OBSTRUCTIVE PULMONARY DISEASE W (ACUTE) EXACERBATION Status: Acute (3) Pneumothorax Code(s): I50.9 - HEART FAILURE, UNSPECIFIED Status: Acute Qualifiers: Status: acute (4) hypertensive urgency Status: Resolved - Plan * Patient has improved significantly in terms of respiratory failure. She is on room air today. * Continue oral antibiotics and steroids * Iatrogenic pneumothorax improved. * Stable * Ambulate patient. * Patient is off of oxygen. * Discharge planning in process.
[2020-02-16] MEDS: Mometasone 200 MCG/Formoterol 5 MCG 120 PUFF INHALER INH SCH ×2 (07:09→18:21)
[2020-02-16] MEDS: predniSONE 20 MG TAB PO SCH (08:51)
[2020-02-16] MEDS: Aspirin 325 MG TAB PER TUBE SCH (08:51)
[2020-02-16] MEDS: hydrALAZINE 25 MG TAB PO SCH ×3 (08:51→22:10)
[2020-02-16] MEDS: Amlodipine 10 MG TAB PO SCH (08:51)
[2020-02-16] MEDS: Lisinopril 5 MG TAB PO SCH (08:51)
[2020-02-16] MEDS: Doxycycline 100 MG CAP PO SCH ×2 (08:52→22:10)
[2020-02-16] MEDS: Enoxaparin Sodium 40 MG/0.4 ML SYRINGE SC SCH (08:52)
[2020-02-16] MEDS: Montelukast Sodium 10 mg Tablet PER TUBE SCH (08:52)
[2020-02-16] MEDS: Pantoprazole 40 MG GRANULES PACKET PER TUBE SCH (08:52)
--- NOTE | 2020-02-16 09:04 | PRG ---
DATE OF SERVICE: 02/16/2020 SUBJECTIVE: Tammie Mejias is a 59-year-old female. She is better. OBJECTIVE: VITAL SIGNS: Temperature 98, on room air, blood pressure 130/71. CHEST: Decreased breath sounds. Rhonchi bilaterally. CARDIAC: Normal S1, S2. No gallops. ABDOMEN: No masses. IMPRESSION: 1. Chronic obstructive pulmonary disease. 2. Respiratory failure. 3. Spontaneous pneumothorax, resolved. 4. Severe deconditioning. PLAN: We are trying to get a placement for her. Otherwise continue PT, supportive care. Follow up with Dr. Stewart later. Job ID: [id number]
--- NOTE | 2020-02-16 16:39 | PDOC.HOSPP ---
- Subjective Encounter Date: 02/16/20 Encounter Time: 09:00 Subjective: Patient seen for follow-up regarding acute hypoxic respiratory failure-sitting in chair, no complaints at this time. - Objective Vital Signs & Weight: Vital Signs (12 hours) Temp Pulse Resp BP BP Pulse Ox 02/16/20 15:44 84 131/73 02/16/20 12:57 79 16 96 02/16/20 08:51 80 130/71 02/16/20 08:00 96 02/16/20 07:26 97.8 F 80 18 130/71 96 02/16/20 07:09 80 16 98 02/16/20 07:08 80 16 98 Weight Admit Weight 277 lb 8.992 oz Weight 259 lb 7.745 oz Most Recent Monitor Data Heart Rate from ECG 73 NIBP 133/75 NIBP BP-Mean 94 Respiration from ECG 18 SpO2 100 I&O: 02/15/20 02/16/20 02/17/20 06:59 06:59 06:59 Intake Total 2150 1000 Output Total 3000 Balance -850 1000 Result Diagrams: 02/12/20 04:06 02/12/20 04:06 Additional Labs: I reviewed patient's labs and [facility] Hospitalist ROS - Review of Systems Constitutional: reports: weakness. denies: fever, malaise Respiratory: reports: SOB with excertion. denies: cough, shortness of breath, pleuritic pain, wheezing Cardiovascular: denies: chest pain, palpitations, orthopnea, paroxysmal noc. dyspnea, edema, light headedness - Medication Medications: Active Medications Generic Name Dose Route Start Last Admin Trade Name Freq PRN Reason Stop Dose Admin Albuterol/Ipratropium 3 ml 02/06/20 07:03 02/06/20 12:44 Duoneb NEB 3 ml [id number] PRN Administration SOB &/or Wheezing Albuterol/Ipratropium 3 ml 02/09/20 10:30 02/16/20 12:57 Ipratropium/Albuterol Sulfate 3 Ml Neb NEB 3 ml [id number] SVEN Administration Amlodipine Besylate 10 mg 02/12/20 09:00 02/16/20 08:51 Amlodipine 10 Mg Tab PO 10 mg DAILY SVEN Administration Aspirin 325 mg 02/06/20 09:00 02/16/20 08:51 Aspirin PER TUBE 325 mg DAILY SVEN Administration Clonidine 0.1 mg 02/10/20 13:22 02/11/20 15:13 Clonidine 0.1 Mg Tab PO 0.1 mg Q4H PRN Administration SBP Greater Than 180 Doxycycline Hyclate 100 mg 02/12/20 21:00 02/16/20 08:52 Doxycycline 100 Mg Cap PO 02/19/20 21:01 100 mg BID SVEN Administration Enoxaparin Sodium 40 mg 02/06/20 09:00 02/16/20 08:52 Lovenox SC 40 mg 09 SVEN Administration Hydralazine HCl 25 mg 02/10/20 15:00 02/16/20 15:44 Hydralazine 25 Mg Tab PO 25 mg TID SVEN Administration Labetalol HCl 10 mg 02/10/20 08:19 02/10/20 20:45 Labetalol Hcl 100 Mg/20 Ml Vial SLOW IVP 10 mg Q4H PRN Administration SBP Greater Than 180 Lisinopril 5 mg 02/13/20 09:00 02/16/20 08:51 Lisinopril 5 Mg Tab PO 5 mg DAILY SVEN Administration Mometasone Furoate/Formoterol Fumar 2 puff 02/12/20 18:30 02/16/20 07:09 Mometasone 200 Mcg/Formoterol 5 Mcg 120 Puff Inhaler INH 2 puff BID-RT SVEN Administration Montelukast Sodium 10 mg 02/08/20 09:00 02/16/20 08:52 Montelukast Sodium 10 Mg Tablet PER TUBE 10 mg DAILY SVEN Administration Pantoprazole Sodium 40 mg 02/09/20 09:00 02/16/20 08:52 Pantoprazole 40 Mg Granules Packet PER TUBE 40 mg DAILY SVEN Administration Prednisone 40 mg 02/13/20 08:00 02/16/20 08:51 Prednisone 20 Mg Tab PO 40 mg QAM-WM SVEN Administration - Exam General - other findings: Obese Eye: anicteric sclera ENT: moist mucosa Neck: supple Heart: RRR Respiratory: CTAB Gastrointestinal: soft, normal bowel sounds Extremities: no cyanosis Skin: no rashes Musculoskeletal: no muscle wasting Psychiatric: normal affect, normal behavior Hosp A/P - Plan -Assessment (1) Acute respiratory failure with hypoxia and hypercapnia Code(s): J96.01 - ACUTE RESPIRATORY FAILURE WITH HYPOXIA; J96.02 - ACUTE RESPIRATORY FAILURE WITH HYPERCAPNIA Status: Acute (2) COPD exacerbation Code(s): J44.1 - CHRONIC OBSTRUCTIVE PULMONARY DISEASE W (ACUTE) EXACERBATION Status: Acute (3) Pneumothorax Code(s): I50.9 - HEART FAILURE, UNSPECIFIED Status: Acute Qualifiers: Status: acute (4) hypertensive urgency Status: Resolved - Plan * Patient oxygenating well on room air. * She is on oral antibiotics and steroids * Iatrogenic pneumothorax improved. * Ambulate patient. * Discharge planning in process. Case management involved.
[2020-02-17] MEDS: Mometasone 200 MCG/Formoterol 5 MCG 120 PUFF INHALER INH SCH ×2 (07:15→18:17)
[2020-02-17] MEDS: predniSONE 20 MG TAB PO SCH (08:31)
[2020-02-17] MEDS: Amlodipine 10 MG TAB PO SCH (08:31)
[2020-02-17] MEDS: hydrALAZINE 25 MG TAB PO SCH ×3 (08:32→20:52)
[2020-02-17] MEDS: Enoxaparin Sodium 40 MG/0.4 ML SYRINGE SC SCH (08:32)
[2020-02-17] MEDS: Aspirin 325 MG TAB PER TUBE SCH (08:32)
[2020-02-17] MEDS: Doxycycline 100 MG CAP PO SCH ×2 (08:32→20:52)
[2020-02-17] MEDS: Montelukast Sodium 10 mg Tablet PER TUBE SCH (08:33)
[2020-02-17] MEDS: Pantoprazole 40 MG GRANULES PACKET PER TUBE SCH (08:33)
[2020-02-17] MEDS: Lisinopril 5 MG TAB PO SCH (08:33)
--- NOTE | 2020-02-17 12:44 | PDOC.HOSPP ---
- Subjective Encounter Date: 02/17/20 Encounter Time: 11:45 Subjective: Patient seen and examined for respiratory failure. Denies any worsening shortness of breath or cough. No fever or chills reported. - Objective Vital Signs & Weight: Vital Signs (12 hours) Temp Pulse Resp BP BP Pulse Ox 02/17/20 10:32 72 15 02/17/20 08:33 73 116/63 02/17/20 08:32 73 116/63 02/17/20 08:31 73 116/63 02/17/20 08:00 97 02/17/20 07:55 98.3 F 73 20 116/63 97 02/17/20 07:15 89 L 02/17/20 07:12 71 15 98 02/17/20 02:32 79 14 95 Weight Admit Weight 277 lb 8.992 oz Weight 259 lb 7.745 oz Most Recent Monitor Data Heart Rate from ECG 73 NIBP 133/75 NIBP BP-Mean 94 Respiration from ECG 18 SpO2 100 I&O: 02/16/20 02/17/20 02/18/20 06:59 06:59 06:59 Intake Total 1000 400 Output Total 650 Balance 1000 -250 Result Diagrams: 02/12/20 04:06 02/12/20 04:06 Hospitalist ROS - Review of Systems Cardiovascular: denies: chest pain, palpitations, orthopnea, paroxysmal noc. dyspnea, edema, light headedness, other Gastrointestinal: denies: nausea, vomiting, abdominal pain, diarrhea, constipation, melena, hematochezia, other - Medication Medications: Active Medications Generic Name Dose Route Start Last Admin Trade Name Freq PRN Reason Stop Dose Admin Albuterol/Ipratropium 3 ml 02/06/20 07:03 02/06/20 12:44 Duoneb NEB 3 ml [id number] PRN Administration SOB &/or Wheezing Albuterol/Ipratropium 3 ml 02/09/20 10:30 02/17/20 10:32 Ipratropium/Albuterol Sulfate 3 Ml Neb NEB 3 ml [id number] SVEN Administration Amlodipine Besylate 10 mg 02/12/20 09:00 02/17/20 08:31 Amlodipine 10 Mg Tab PO 10 mg DAILY SVEN Administration Aspirin 325 mg 02/06/20 09:00 02/17/20 08:32 Aspirin PER TUBE 325 mg DAILY SVEN Administration Clonidine 0.1 mg 02/10/20 13:22 02/11/20 15:13 Clonidine 0.1 Mg Tab PO 0.1 mg Q4H PRN Administration SBP Greater Than 180 Doxycycline Hyclate 100 mg 02/12/20 21:00 02/17/20 08:32 Doxycycline 100 Mg Cap PO 02/19/20 21:01 100 mg BID SVEN Administration Enoxaparin Sodium 40 mg 02/06/20 09:00 02/17/20 08:32 Lovenox SC 40 mg 0900 SVEN Administration Hydralazine HCl 25 mg 02/10/20 15:00 02/17/20 08:32 Hydralazine 25 Mg Tab PO Not Given TID SVEN Labetalol HCl 10 mg 02/10/20 08:19 02/10/20 20:45 Labetalol Hcl 100 Mg/20 Ml Vial SLOW IVP 10 mg Q4H PRN Administration SBP Greater Than 180 Lisinopril 5 mg 02/13/20 09:00 02/17/20 08:33 Lisinopril 5 Mg Tab PO 5 mg DAILY SVEN Administration Mometasone Furoate/Formoterol Fumar 2 puff 02/12/20 18:30 02/17/20 07:15 Mometasone 200 Mcg/Formoterol 5 Mcg 120 Puff Inhaler INH 2 puff BID-RT SVEN Administration Montelukast Sodium 10 mg 02/08/20 09:00 02/17/20 08:33 Montelukast Sodium 10 Mg Tablet PER TUBE 10 mg DAILY SVEN Administration Pantoprazole Sodium 40 mg 02/09/20 09:00 02/17/20 08:33 Pantoprazole 40 Mg Granules Packet PER TUBE 40 mg DAILY SVEN Administration Prednisone 40 mg 02/13/20 08:00 02/17/20 08:31 Prednisone 20 Mg Tab PO 40 mg QAM-WM SVEN Administration - Exam General Appearance: NAD Neck: supple, no JVD Respiratory: no wheezes, no rales, rhonchi Gastrointestinal: soft, no guarding, no rigidity Extremities: 2+ LE edema Neurological: no new deficit Hosp A/P (1) Acute respiratory failure with hypoxia and hypercapnia Code(s): J96.01 - ACUTE RESPIRATORY FAILURE WITH HYPOXIA; J96.02 - ACUTE RESPIRATORY FAILURE WITH HYPERCAPNIA Status: Acute (2) COPD exacerbation Code(s): J44.1 - CHRONIC OBSTRUCTIVE PULMONARY DISEASE W (ACUTE) EXACERBATION Status: Acute (3) Spontaneous pneumothorax Code(s): J93.83 - OTHER PNEUMOTHORAX Status: Resolved (4) CAD (coronary artery disease) Code(s): I25.10 - ATHSCL HEART DISEASE OF [place] CORONARY ARTERY W/O ANG PCTRS Status: Chronic (5) HTN (hypertension) Code(s): I10 - ESSENTIAL (PRIMARY) HYPERTENSION Status: Chronic (6) Obesity (BMI 30-39.9) Code(s): E66.9 - OBESITY, UNSPECIFIED Status: Acute (7) Other issues per previous note - Plan DVT proph w/lovenox 59-year-old female admitted on 05 February with respiratory failure requiring mechanical intubation. She was also found to have spontaneous right-sided pneumothorax requiring chest tube placement. She was subsequently extubated and transferred to medical floor. Will continue inhaled corticosteroid, oral prednisone, nebulizer treatment with oral doxycycline. Continue lisinopril, hydralazine and amlodipine for hypertension. Patient is awaiting placement at this time. Update home medication list. Recheck labs in a.m.
--- NOTE | 2020-02-17 14:22 | PRG ---
DATE OF SERVICE: 02/17/2020 SUBJECTIVE: Tammie Mejias is in no distress. She has no new complaints. She says she is feeling better. OBJECTIVE: VITAL SIGNS: She is afebrile. Heart rates in the 70s, blood pressure 116/63, oximetry is 97% on room air. LUNGS: Clear. HEART: Regular rhythm. ABDOMEN: Soft. EXTREMITIES: Without edema. IMPRESSION: Chronic obstructive pulmonary disease exacerbation, slowly improving. PLAN: Continue same. It is anticipated she will either go to rehab or home if she gets strong enough. Job ID: [id number]
[2020-02-18 05:50] LABS: #Basophils 0.1 thou/uL (0.0-0.2); #Eosinphils 0.2 thou/uL (0.0-0.7); #Lymphocytes 2.6 thou/uL (1.20-3.40); #Monocytes 1.8 thou/uL (0.11-0.59); %Basophils 0.6 % (0.0-1.0); %Eosinophils 1.2 % (0.0-10.0); %Lymphocytes 16.5 % (21.0-51.0); %Monocytes 11.2 % (0.0-10.0); %Neutrophils 70.5 % (42.0-75.0); Hemoglobin 14.1 g/dL (12.0-16.0); Mean Corpuscular HGB CONC 32.9 g/dL (32.0-36.0); Mean Corpuscular Hemoglobin 30.1 pg (27.0-31.0); Mean Corpuscular Volume 91.6 fL (78.0-98.0); Mean Platelet Volume 8.1 fL (7.4-10.4); Platelet Count 269 thou/uL (130-400); Red Blood Cell (RBC) Count 4.67 mill/uL (4.20-5.40); White Blood Cell (WBC) Count 15.6 thou/uL (4.8-10.8)
[2020-02-18 06:12] LABS: Anion Gap 13 mmol/L (10-20); BUN (Urea Nitrogen) 16 mg/dL (9.8-20.1); Calc. Creatinine Clearance 193 mL/min (70-130); Calcium 9.1 mg/dL (7.8-10.44); Carbon Dioxide 24 mmol/L (22-29); Chloride 104 mmol/L (98-107); Estimated GFR-MDRD Greater than 90; Glucose 121 mg/dL (70-105); Magnesium 1.9 mg/dL (1.6-2.6); Sodium 137 mmol/L (136-145)
[2020-02-18] MEDS: Mometasone 200 MCG/Formoterol 5 MCG 120 PUFF INHALER INH SCH ×2 (07:15→18:01)
[2020-02-18] MEDS: predniSONE 20 MG TAB PO SCH (08:05)
[2020-02-18] MEDS: Aspirin 325 MG TAB PER TUBE SCH (08:06)
[2020-02-18] MEDS: Enoxaparin Sodium 40 MG/0.4 ML SYRINGE SC SCH (08:06)
[2020-02-18] MEDS: Doxycycline 100 MG CAP PO SCH ×2 (08:06→20:29)
[2020-02-18] MEDS: hydrALAZINE 25 MG TAB PO SCH ×3 (08:06→20:29)
[2020-02-18] MEDS: Amlodipine 10 MG TAB PO SCH (08:06)
[2020-02-18] MEDS: Pantoprazole 40 MG GRANULES PACKET PER TUBE SCH (08:07)
[2020-02-18] MEDS: Lisinopril 5 MG TAB PO SCH (08:07)
[2020-02-18] MEDS: Montelukast Sodium 10 mg Tablet PER TUBE SCH (08:07)
--- NOTE | 2020-02-18 14:26 | PRG ---
DATE OF SERVICE: 02/18/2020 SUBJECTIVE: Amy has no complaints. She passed her swallowing evaluation completely today. OBJECTIVE: VITAL SIGNS: She is afebrile. Blood pressure 110/62, heart rate 74, . She is on room air. LUNGS: Clear. HEART: Regular rhythm. ABDOMEN: Soft. LABORATORY DATA: White count 15.6, hemoglobin 14.1, platelets 269. Electrolytes normal. Creatinine 0.59. IMPRESSION: 1. Chronic obstructive pulmonary disease. 2. History of respiratory failure. 3. Spontaneous pneumothorax this admission. 4. Deconditioning. 5. Obesity. She appears stable. Job ID: [id number]
--- NOTE | 2020-02-18 19:51 | PDOC.HOSPP ---
- Subjective Encounter Date: 02/18/20 Encounter Time: 14:30 Subjective: Patient seen and examined for respiratory failure. Denies any new complaints. Mild cough without significant production. No significant change in shortness of breath. - Objective Vital Signs & Weight: Vital Signs (12 hours) Temp Pulse Resp BP BP Pulse Ox 02/18/20 17:52 74 16 95 02/18/20 15:09 76 108/64 02/18/20 10:29 76 15 02/18/20 08:07 74 110/63 02/18/20 08:06 74 110/63 02/18/20 08:00 95 02/18/20 07:50 98.0 F 74 20 110/63 95 Weight Admit Weight 277 lb 8.992 oz Weight 259 lb 7.745 oz Most Recent Monitor Data Heart Rate from ECG 73 NIBP 133/75 NIBP BP-Mean 94 Respiration from ECG 18 SpO2 100 I&O: 02/17/20 02/18/20 02/19/20 06:59 06:59 06:59 Intake Total 400 970 Output Total 650 Balance -250 970 Result Diagrams: 02/18/20 05:23 02/18/20 05:23 Hospitalist ROS - Review of Systems Respiratory: denies: cough, dry, shortness of breath, hemoptysis, SOB with excertion, pleuritic pain, sputum, wheezing, other Cardiovascular: denies: chest pain, palpitations, orthopnea, paroxysmal noc. dyspnea, edema, light headedness, other Gastrointestinal: denies: nausea, vomiting, abdominal pain, diarrhea, constipation, melena, hematochezia, other - Medication Medications: Active Medications Generic Name Dose Route Start Last Admin Trade Name Freq PRN Reason Stop Dose Admin Albuterol/Ipratropium 3 ml 02/06/20 07:03 02/06/20 12:44 Duoneb NEB 3 ml [id number] PRN Administration SOB &/or Wheezing Albuterol/Ipratropium 3 ml 02/09/20 10:30 02/18/20 17:52 Ipratropium/Albuterol Sulfate 3 Ml Neb NEB 3 ml [id number] SVEN Administration Amlodipine Besylate 10 mg 02/12/20 09:00 02/18/20 08:06 Amlodipine 10 Mg Tab PO 10 mg DAILY SVEN Administration Aspirin 325 mg 02/06/20 09:00 02/18/20 08:06 Aspirin PER TUBE 325 mg DAILY SVEN Administration Clonidine 0.1 mg 02/10/20 13:22 02/11/20 15:13 Clonidine 0.1 Mg Tab PO 0.1 mg Q4H PRN Administration SBP Greater Than 180 Doxycycline Hyclate 100 mg 02/12/20 21:00 02/18/20 08:06 Doxycycline 100 Mg Cap PO 02/19/20 21:01 100 mg BID SVEN Administration Enoxaparin Sodium 40 mg 02/06/20 09:00 02/18/20 08:06 Lovenox SC 40 mg 0900 SVEN Administration Hydralazine HCl 25 mg 02/10/20 15:00 02/18/20 15:09 Hydralazine 25 Mg Tab PO Not Given TID SVEN Labetalol HCl 10 mg 02/10/20 08:19 02/10/20 20:45 Labetalol Hcl 100 Mg/20 Ml Vial SLOW IVP 10 mg Q4H PRN Administration SBP Greater Than 180 Lisinopril 5 mg 02/13/20 09:00 02/18/20 08:07 Lisinopril 5 Mg Tab PO Not Given DAILY SVEN Mometasone Furoate/Formoterol Fumar 2 puff 02/12/20 18:30 02/18/20 18:01 Mometasone 200 Mcg/Formoterol 5 Mcg 120 Puff Inhaler INH 2 puff BID-RT SVEN Administration Montelukast Sodium 10 mg 02/08/20 09:00 02/18/20 08:07 Montelukast Sodium 10 Mg Tablet PER TUBE 10 mg DAILY SVEN Administration Pantoprazole Sodium 40 mg 02/09/20 09:00 02/18/20 08:07 Pantoprazole 40 Mg Granules Packet PER TUBE 40 mg DAILY SVEN Administration Prednisone 40 mg 02/13/20 08:00 02/18/20 08:05 Prednisone 20 Mg Tab PO 40 mg QAM-WM SVEN Administration - Exam General Appearance: NAD Neck: supple, no JVD Heart: no gallops, no rubs Respiratory: no wheezes, no ronchi, normal chest expansion Gastrointestinal: non-tender, non-distended Extremities: 2+ LE edema Hosp A/P (1) Acute respiratory failure with hypoxia and hypercapnia Code(s): J96.01 - ACUTE RESPIRATORY FAILURE WITH HYPOXIA; J96.02 - ACUTE RESPIRATORY FAILURE WITH HYPERCAPNIA Status: Acute (2) COPD exacerbation Code(s): J44.1 - CHRONIC OBSTRUCTIVE PULMONARY DISEASE W (ACUTE) EXACERBATION Status: Acute (3) Spontaneous pneumothorax Code(s): J93.83 - OTHER PNEUMOTHORAX Status: Resolved (4) CAD (coronary artery disease) Code(s): I25.10 - ATHSCL HEART DISEASE OF [place] CORONARY ARTERY W/O ANG PCTRS Status: Chronic (5) HTN (hypertension) Code(s): I10 - ESSENTIAL (PRIMARY) HYPERTENSION Status: Chronic (6) Obesity (BMI 30-39.9) Code(s): E66.9 - OBESITY, UNSPECIFIED Status: Acute (7) Other issues per previous note - Plan DVT proph w/lovenox, DVT proph w/SCDs 02/17 Continue nebulizer treatment with oral prednisone and doxycycline. Home medications verified today. Will change aspirin to Plavix. Resume home dose of Lasix. Add potassium supplementation. Continue physical therapy. Leg elevation. 02/16 59-year-old female admitted on 05 February with respiratory failure requiring mechanical intubation. She was also found to have spontaneous right-sided pneumothorax requiring chest tube placement. She was subsequently extubated and transferred to medical floor. Will continue inhaled corticosteroid, oral prednisone, nebulizer treatment with oral doxycycline. Continue lisinopril, hydralazine and amlodipine for hypertension. Patient is awaiting placement at this time. Update home medication list. Recheck labs in a.m.
[2020-02-19 06:26] LABS: Anion Gap 13 mmol/L (10-20); BUN (Urea Nitrogen) 15 mg/dL (9.8-20.1); Calc. Creatinine Clearance 190 mL/min (70-130); Calcium 9.2 mg/dL (7.8-10.44); Carbon Dioxide 24 mmol/L (22-29); Chloride 104 mmol/L (98-107); Estimated GFR-MDRD Greater than 90; Glucose 129 mg/dL (70-105); Potassium 4.2 mmol/L (3.5-5.1); Sodium 137 mmol/L (136-145)
[2020-02-19] MEDS: Mometasone 200 MCG/Formoterol 5 MCG 120 PUFF INHALER INH SCH (07:12)
[2020-02-19] MEDS ORDERED: Furosemide 40 MG TAB PO SCH (07:30)
[2020-02-19 07:58] VITALS: TEMP 97.8
[2020-02-19] MEDS ORDERED: Potassium Chloride 20 MEQ TAB PO SCH (08:00)
[2020-02-19] MEDS ORDERED: Clopidogrel Bisulfate 75 MG TAB PO SCH (09:00)
[2020-02-19] MEDS: predniSONE 20 MG TAB PO SCH (09:18)
[2020-02-19] MEDS: Amlodipine 10 MG TAB PO SCH (09:18)
[2020-02-19] MEDS: Montelukast Sodium 10 mg Tablet PER TUBE SCH (09:18)
[2020-02-19] MEDS: hydrALAZINE 25 MG TAB PO SCH ×2 (09:18→15:28)
[2020-02-19] MEDS: Doxycycline 100 MG CAP PO SCH (09:19)
[2020-02-19] MEDS: Lisinopril 5 MG TAB PO SCH (09:19)
[2020-02-19] MEDS: Enoxaparin Sodium 40 MG/0.4 ML SYRINGE SC SCH (09:20)
[2020-02-19] MEDS ORDERED: predniSONE 20 MG TAB PO SCH (10:45)
--- NOTE | 2020-02-19 10:57 | PRG ---
DATE OF SERVICE: 02/19/2020 SUBJECTIVE: The patient is doing well. She is reluctant to go over to rehab, although I am not sure she would qualify anyway. She says she is committed to stop smoking. She says she was on albuterol prior to admission, but was unable to afford any of the medications because she has no insurance. OBJECTIVE: VITAL SIGNS: Her temperature is 97.8, pulse 77, respiration 20, O2 saturation 96% on room air, blood pressure 132/69. HEENT: Unremarkable. NECK: No adenopathy or JVD. LUNGS: Clear. CARDIAC: S1 and S2, regular. ABDOMEN: Soft. EXTREMITIES: No edema. ASSESSMENT: 1. Chronic obstructive pulmonary disease with exacerbation. 2. Status post respiratory failure, requiring mechanical ventilation. 3. Tobacco abuse. PLAN: In an ideal world, it would be nice to see her on a controlled medications such as Advair, Symbicort or Dulera. At the very least, she needs to be on albuterol and ipratropium four times a day when discharged. I will go ahead and cut her prednisone down to 20 mg a day. I would wean this over a week to 10 days. She is probably medically stable for discharge or whatever the next step in her care will be. Job ID: [id number]
--- NOTE | 2020-02-19 13:53 | DIS ---
DATE OF ADMISSION: 02/06/2020 DATE OF DISCHARGE: 02/19/2020 DISCHARGE DISPOSITION: snf facility. DISCHARGE MEDICATIONS: 1. Doxycycline 100 mg b.i.d. for next 5 days. 2. Prednisone taper. 3. Singulair 10 mg daily. 4. Lisinopril and other medications were left unchanged. The patient was seen and examined on the day of discharge. Denies any new complaints. No new fever or chills reported. SIGNIFICANT LABORATORY DATA: ABG on admission showed pH of 7.10 with pCO2 of 88.1, bicarbonate of 26.4 with pO2 of 69.3. COVID-19 testing was negative. BNP was 724. Creatinine 0.97. Blood cultures were negative. Chest x-ray on admission showed pneumothorax requiring chest tube placement. INPATIENT BOX ICER: Pulmonary/Critical Care. BRIEF HOSPITAL COURSE: The patient is a 59-year-old female with COPD, congestive heart failure, morbid obesity, and coronary artery disease who was brought in to the emergency room by EMS on 05 February with worsening shortness of breath along with altered mentation. She was minimally responsive to oxygen. She was subsequently intubated. Her chest x-ray in the emergency room showed a large right-sided pneumothorax requiring chest tube placement. She also had a central line placed. She was started on antibiotics along with Levophed, steroids, and was admitted to the ICU. Please refer to the history and physical for further details. The patient was admitted to the hospital with a diagnosis of respiratory failure secondary to COPD exacerbation with congestive heart failure exacerbation and pneumothorax. She was evaluated by Pulmonary/Critical Care. She was kept on oxygen, nebulizer treatment, steroids, and antibiotics. Later on, the chest tube was removed. She was subsequently extubated and transferred to medical floor. Her antibiotics have been transitioned to oral. Steroids were changed to oral as well. The patient has been physically deconditioned and inpatient rehab versus fpc facility was recommended. There was a delay in finding a fpc facility since the patient is uninsured. The patient was accepted at a [facility] today on private pay. She has been cleared by consultants for discharge. Her vital signs on the day of discharge showed temperature 97.8, pulse rate of 77, respirations of 20, blood pressure of 132/69 with O2 saturation 96% on room air. The patient understands the above plan of care. FINAL DIAGNOSES: 1. Acute hypoxic and hypercapnic respiratory failure. 2. Chronic obstructive pulmonary disease exacerbation. 3. 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 4. Coronary artery disease, status post recent stent placement. 5. Hypertension. 6. Spontaneous pneumothorax requiring chest tube. 7. Obesity with a body mass index of 39. TIME SPENT: Time coordinating the discharge of this patient was 35 minutes. Job ID: [id number]
[2020-02-19 15:20] VITALS: BP 106/62
[2020-02-20] MEDS ORDERED: predniSONE 20 MG TAB PO SCH (08:00)
== END 2020-02-19 16:21 | DRG 208 ==
LOC: ERS 02:09 → CCU 04:15 → 2NO 02-11 17:01 → T4-A 02-12 15:47
PROVIDERS: ADMIT Internal Medicine; ATTEND Internal Medicine
PROC: 5A1945Z Respiratory Ventilation, 24-96 Consecutive Hours (ICD-10-PCS; principal; 2020-02-06)
PROC: 0B21XEZ Change Endotracheal Airway in Trachea, External Approach (ICD-10-PCS; 2020-02-06)
PROC: 0W9930Z Drainage of Right Pleural Cavity with Drainage Device, Percutaneous Approach (ICD-10-PCS; 2020-02-06)
PROC: 02H633Z Insertion of Infusion Device into Right Atrium, Percutaneous Approach (ICD-10-PCS; 2020-02-06)
PROC: 3E043XZ Introduction of Vasopressor into Central Vein, Percutaneous Approach (ICD-10-PCS; 2020-02-06)
DX: J44.1 Chronic obstructive pulmonary disease with (acute) exacerbation (principal); I50.43 Acute on chronic combined systolic (congestive) and diastolic (congestive) heart failure; J96.01 Acute respiratory failure with hypoxia; J96.02 Acute respiratory failure with hypercapnia; A41.9 Sepsis, unspecified organism; R65.21 Severe sepsis with septic shock; J95.811 Postprocedural pneumothorax; Z20.828 Contact with and (suspected) exposure to other viral communicable diseases; I25.10 Atherosclerotic heart disease of native coronary artery without angina pectoris; I11.0 Hypertensive heart disease with heart failure; E66.01 Morbid (severe) obesity due to excess calories; F17.210 Nicotine dependence, cigarettes, uncomplicated; Y84.8 Other medical procedures as the cause of abnormal reaction of the patient, or of later complication, without mention of misadventure at the time of the procedure; J40 Bronchitis, not specified as acute or chronic; I16.0 Hypertensive urgency; J98.2 Interstitial emphysema; Z95.5 Presence of coronary angioplasty implant and graft; Z68.39 Body mass index [BMI] 39.0-39.9, adult; Z78.1 Physical restraint status; I25.2 Old myocardial infarction; Z79.899 Other long term (current) drug therapy; Z79.02 Long term (current) use of antithrombotics/antiplatelets
CPT/HCPCS: 31500; 32551; 36415; 36416; 36556; 51702; 71045; 80048; 80053; 81003; 81015; 82550; 82553; 82805; 83605; 83735; 83880; 84484; 85025; 85610; 85730; 87040; 93005; 94003; 94640; 96365; 96366; 96367; 96368; 96372; 96375; 97139; C9113; J0360; J0456; J0696; J1650; J1940; J2060; J2250; J2704; J2920; J2930; J3010; J3105; J3475; J3490; J7050; J7512; J7620; U0002

== ENCOUNTER 2020-12-13 16:05 | Inpatient (IN) | payer OTHER, SELFPAY ==
[~2020-12-13 16:05] MED LIST: Iopamidol-370 76% 500 ML 1 ML ONE
[2020-12-13] MEDS ORDERED: Midazolam HCl 5 mg/ml Vial ONE (16:06)
[2020-12-13] MEDS ORDERED: Propofol 1,000 MG/100 ML VIAL IV ONE (16:20)
[2020-12-13 16:21] LABS: #Eosinphils 0.2 thou/uL (0.0-0.7); #Lymphocytes 1.3 thou/uL (1.20-3.40); #Monocytes 0.6 thou/uL (0.11-0.59); #Neutrophils 13.3 thou/uL (1.40-6.50); %Basophils 0.2 % (0.0-1.0); %Eosinophils 1.2 % (0.0-10.0); %Lymphocytes 8.5 % (21.0-51.0); %Monocytes 3.8 % (0.0-10.0); %Neutrophils 86.4 % (42.0-75.0); Hemoglobin 12.9 g/dL (12.0-16.0); Mean Corpuscular HGB CONC 31.9 g/dL (32.0-36.0); Mean Corpuscular Hemoglobin 27.4 pg (27.0-31.0); Mean Corpuscular Volume 86.1 fL (78.0-98.0); Mean Platelet Volume 7.7 fL (7.4-10.4); Platelet Count 225 thou/uL (130-400); RBC Distribution Width 15.1 % (11.5-14.5); Red Blood Cell (RBC) Count 4.68 mill/uL (4.20-5.40); White Blood Cell (WBC) Count 15.4 thou/uL (4.8-10.8)
[2020-12-13 16:41] LABS: Actual Bicarbonate (HCO3a) 29.1 mEq/L (22-28); Analyzer IN Cardio ER; Base Excess (BEa) 0.6 mEq/L (-2.0 to +3.0); Calcium, Ionized (arterial) 1.17 mmol/L (1.12-1.30); Carboxyhemoglobin (COHb) 0.2 gm% (0.0-3.0); Hemoglobin (Hb) 13.3 g/dL (12.0-16.0); O2 Tension (PaO2), arterial 89.3 mmHg (80.0-100.0); Potassium - ABG Lab 4.29 mmol/L (3.70-5.30); pH, Arterial 7.26 (7.35-7.45)
[2020-12-13 16:43] LABS: CO2 Tension 65.8 mmHg (35.0-45.0); Puncture Site RRA
[2020-12-13 16:45] LABS: ALT (SGPT) 22 U/L (8-55); AST (SGOT) 18 U/L (5-34); Alkaline Phosphatase 71 U/L (40-110); Anion Gap 13 mmol/L (10-20); BUN (Urea Nitrogen) 17 mg/dL (9.8-20.1); Calc. Creatinine Clearance 0 mL/min (70-130); Carbon Dioxide 28 mmol/L (22-29); Chloride 102 mmol/L (98-107); Globulin 2.4 g/dL (2.4-3.5); Glucose 224 mg/dL (70-105); Potassium 4.3 mmol/L (3.5-5.1); Protein, Total 6.4 g/dL (6.0-8.3); Sodium 139 mmol/L (136-145)
[2020-12-13 17:05] LABS: CKMB 1.6 ng/mL (0-6.6)
[2020-12-13 17:12] LABS: SARS-CoV-2 NAA Rapid Test Not Detected (NotDetected)
[2020-12-13] MEDS ORDERED: Norepinephrine 8 MG/0.9% NS 250 ML ONE (17:17)
[2020-12-13] MEDS ORDERED: Ketamine 50 MG/ML (10ML VIAL) ONE (17:40)
[2020-12-13] MEDS ORDERED: methylPREDNISolone Sod Succ/PF 125 MG/2 ML VIAL ONE (18:27)
[2020-12-13] MEDS ORDERED: Aspirin 300 MG Suppository ONE (18:27)
[2020-12-13] MEDS ORDERED: Magnesium 2 GM/50 ML BAG (IN WATER) ONE (18:29)
[2020-12-13] MEDS ORDERED: Propofol 1,000 MG/100 ML VIAL IV PRN (19:45)
[2020-12-13] MEDS ORDERED: Propofol BOLUS 1,000 MG/100 ML VIAL IV PRN (19:45)
[2020-12-13] MEDS ORDERED: Fentanyl BOLUS 250 ML IVPB PRN (19:45)
[2020-12-13] MEDS ORDERED: DISCONTINUE PREVIOUS NARCOTIC PAIN MEDICATIONS AND BENZODIAZEPINES FS SCH (19:45)
[2020-12-13 20:49] LABS: Troponin I 0.263 ng/mL (< 0.028)
[2020-12-13] MEDS ORDERED: Acetaminophen 650 MG Suppository PR PRN (20:56)
[2020-12-13] MEDS ORDERED: Ondansetron PF 4 MG/2 ML Vial IVP PRN (20:56)
[2020-12-13] MEDS ORDERED: Ondansetron ODT 4 MG TAB PO PRN (20:56)
[2020-12-13] MEDS ORDERED: Norepinephrine 8 MG/0.9% NS 250 ML IVPB SCH (21:00)
[2020-12-13] MEDS: Azithromycin 500 MG in Sodium Chloride 0.9% 250 ML 250 ML IVPB SCH (21:30)
[2020-12-13] MEDS ORDERED: Midazolam HCl 2 mg/2 ml Vial IVP SCH (21:30)
[2020-12-13 22:58] LABS: Troponin I 0.307 ng/mL (< 0.028)
[2020-12-13] MEDS ORDERED: Enoxaparin Sodium 40 MG/0.4 ML SYRINGE SC SCH (23:45)
[2020-12-13] MEDS ORDERED: Enoxaparin Sodium 100 MG/ML SYRINGE SC SCH (23:45)
[2020-12-14] MEDS ORDERED: Fentanyl CADD 100 ML ONE ×2 (00:23→13:52)
[2020-12-14] MEDS: Fentanyl CADD 100 ML IV SCH (00:25)
[2020-12-14 04:26] LABS: #Lymphocytes 1.1 thou/uL (1.20-3.40); #Monocytes 0.1 thou/uL (0.11-0.59); #Neutrophils 7.1 thou/uL (1.40-6.50); %Basophils 0.1 % (0.0-1.0); %Eosinophils 0.1 % (0.0-10.0); %Lymphocytes 13.4 % (21.0-51.0); %Monocytes 1.1 % (0.0-10.0); %Neutrophils 85.3 % (42.0-75.0); Hemoglobin 12.8 g/dL (12.0-16.0); Mean Corpuscular HGB CONC 31.7 g/dL (32.0-36.0); Mean Corpuscular Hemoglobin 27.3 pg (27.0-31.0); Mean Corpuscular Volume 86.2 fL (78.0-98.0); Mean Platelet Volume 7.7 fL (7.4-10.4); Platelet Count 197 thou/uL (130-400); RBC Distribution Width 15.3 % (11.5-14.5); Red Blood Cell (RBC) Count 4.68 mill/uL (4.20-5.40); White Blood Cell (WBC) Count 8.3 thou/uL (4.8-10.8)
[2020-12-14 04:47] LABS: Anion Gap 13 mmol/L (10-20); BUN (Urea Nitrogen) 15 mg/dL (9.8-20.1); Calc. Creatinine Clearance 188 mL/min (70-130); Calcium 9.1 mg/dL (7.8-10.44); Carbon Dioxide 26 mmol/L (22-29); Chloride 104 mmol/L (98-107); Glucose 155 mg/dL (70-105); Potassium 4.2 mmol/L (3.5-5.1); Sodium 139 mmol/L (136-145)
[2020-12-14] MEDS ORDERED: Furosemide 40 MG/4 ML VIAL SLOW IVP SCH (06:45)
[2020-12-14] MEDS: Enoxaparin Sodium 100 MG/ML SYRINGE SC SCH ×2 (07:55→20:47)
[2020-12-14] MEDS: Enoxaparin Sodium 40 MG/0.4 ML SYRINGE SC SCH ×2 (07:56→20:47)
[2020-12-14] MEDS ORDERED: Enoxaparin Sodium 40 MG/0.4 ML SYRINGE SC SCH (09:00)
[2020-12-14] MEDS ORDERED: methylPREDNISolone Sod Succ 40 MG VIAL IVP SCH (09:00)
[2020-12-14] MEDS ORDERED: Aspirin 81 mg Enteric Coated Tablet PO SCH (10:15)
[2020-12-14] MEDS ORDERED: Clopidogrel Bisulfate 75 MG TAB PO SCH (10:15)
[2020-12-14] MEDS ORDERED: Pantoprazole 40 MG VIAL IVP SCH (10:15)
[2020-12-14] MEDS: cefTRIAXone\\ROCEPHIN 1 GM in Sodium Chloride 0.9% 100 ML IVPB SCH (16:52)
[2020-12-14] MEDS: Clindamycin/D5W 600 MG in Premix Bag 1 BAG IVPB SCH (16:53)
[2020-12-14] MEDS: Thiamine HCl 200 MG/2 ML VIAL SLOW IVP SCH (16:53)
[2020-12-14] MEDS: Lisinopril 5 MG TAB PO SCH (20:47)
[2020-12-14] MEDS: Azithromycin 500 MG in Sodium Chloride 0.9% 250 ML 250 ML IVPB SCH (21:02)
[2020-12-15] MEDS: Clindamycin/D5W 600 MG in Premix Bag 1 BAG IVPB SCH ×3 (02:24→17:27)
[2020-12-15] MEDS ORDERED: Fentanyl CADD 100 ML ONE ×2 (03:19→16:47)
[2020-12-15] MEDS: Fentanyl CADD 100 ML IV SCH (03:21)
[2020-12-15 07:25] LABS: Actual Bicarbonate (HCO3a) 26.8 mEq/L (22-28); Base Excess (BEa) 3.6 mEq/L (-2.0 to +3.0); CO2 Tension 36.2 mmHg (35.0-45.0); Calcium, Ionized (arterial) 1.21 mmol/L (1.12-1.30); Carboxyhemoglobin (COHb) 0.7 gm% (0.0-3.0); Hemoglobin (Hb) 14.1 g/dL (12.0-16.0); O2 Tension (PaO2), arterial 84.1 mmHg (80.0-100.0); Potassium - ABG Lab 3.83 mmol/L (3.70-5.30); pH, Arterial 7.49 (7.35-7.45)
[2020-12-15 07:46] LABS: Puncture Site RRA
[2020-12-15] MEDS: Aspirin 81 mg Enteric Coated Tablet PO SCH (09:02)
[2020-12-15] MEDS: Clopidogrel Bisulfate 75 MG TAB PO SCH (09:02)
[2020-12-15] MEDS: Lisinopril 5 MG TAB PO SCH ×2 (09:03→20:51)
[2020-12-15] MEDS: Enoxaparin Sodium 100 MG/ML SYRINGE SC SCH (09:03)
[2020-12-15] MEDS: Furosemide 40 MG/4 ML VIAL SLOW IVP SCH (09:04)
[2020-12-15] MEDS: Nicotine 21 MG PATCH TD SCH (09:04)
[2020-12-15] MEDS: Enoxaparin Sodium 40 MG/0.4 ML SYRINGE SC SCH ×2 (09:04→20:51)
[2020-12-15] MEDS: Pantoprazole 40 MG VIAL IVP SCH (09:04)
[2020-12-15] MEDS: Thiamine HCl 200 MG/2 ML VIAL SLOW IVP SCH (16:08)
[2020-12-15] MEDS: cefTRIAXone\\ROCEPHIN 1 GM in Sodium Chloride 0.9% 100 ML IVPB SCH (16:08)
[2020-12-15] MEDS ORDERED: Dextrose 5% in Water 1,000 ML IV PRN (16:09)
[2020-12-15] MEDS ORDERED: Dextrose 50% Abboject 50 ML SYRINGE SLOW IVP PRN (16:09)
[2020-12-15] MEDS: Lorazepam 2 MG/ML VIAL SLOW IVP PRN (17:34)
[2020-12-15] MEDS: Azithromycin 500 MG in Sodium Chloride 0.9% 250 ML 250 ML IVPB SCH (21:01)
[2020-12-16 03:56] LABS: #Lymphocytes 1.6 thou/uL (1.20-3.40); #Monocytes 0.7 thou/uL (0.11-0.59); #Neutrophils 7.5 thou/uL (1.40-6.50); %Basophils 0.1 % (0.0-1.0); %Eosinophils 0.3 % (0.0-10.0); %Lymphocytes 16.4 % (21.0-51.0); %Monocytes 7.5 % (0.0-10.0); %Neutrophils 75.7 % (42.0-75.0); Hemoglobin 11.6 g/dL (12.0-16.0); Mean Corpuscular HGB CONC 32.4 g/dL (32.0-36.0); Mean Corpuscular Hemoglobin 27.7 pg (27.0-31.0); Mean Corpuscular Volume 85.4 fL (78.0-98.0); Mean Platelet Volume 7.7 fL (7.4-10.4); Platelet Count 187 thou/uL (130-400); RBC Distribution Width 15.6 % (11.5-14.5); Red Blood Cell (RBC) Count 4.18 mill/uL (4.20-5.40); White Blood Cell (WBC) Count 9.9 thou/uL (4.8-10.8)
[2020-12-16 04:02] LABS: Hemoglobin A1c 6.4 % (4.0-6.0)
[2020-12-16] MEDS: Clindamycin/D5W 600 MG in Premix Bag 1 BAG IVPB SCH ×3 (04:04→19:42)
[2020-12-16] MEDS ORDERED: Fentanyl CADD 100 ML ONE (05:59)
[2020-12-16] MEDS: Fentanyl CADD 100 ML IV SCH ×2 (06:06→17:46)
[2020-12-16 08:26] LABS: Actual Bicarbonate (HCO3a) 27.4 mEq/L (22-28); Base Excess (BEa) 2.8 mEq/L (-2.0 to +3.0); CO2 Tension 42.2 mmHg (35.0-45.0); Calcium, Ionized (arterial) 1.18 mmol/L (1.12-1.30); Carboxyhemoglobin (COHb) 0.7 gm% (0.0-3.0); Hemoglobin (Hb) 12.7 g/dL (12.0-16.0); O2 Tension (PaO2), arterial 75.7 mmHg (80.0-100.0); Potassium - ABG Lab 3.48 mmol/L (3.70-5.30); Puncture Site RRA; pH, Arterial 7.43 (7.35-7.45)
[2020-12-16] MEDS: Enoxaparin Sodium 40 MG/0.4 ML SYRINGE SC SCH ×2 (10:22→21:21)
[2020-12-16] MEDS: Pantoprazole 40 MG VIAL IVP SCH (10:22)
[2020-12-16] MEDS: Furosemide 40 MG/4 ML VIAL SLOW IVP SCH (10:23)
[2020-12-16] MEDS: Nicotine 21 MG PATCH TD SCH (10:24)
[2020-12-16] MEDS: Lisinopril 5 MG TAB PO SCH ×2 (10:24→21:21)
[2020-12-16] MEDS: Clopidogrel Bisulfate 75 MG TAB PO SCH (10:24)
[2020-12-16] MEDS: Aspirin 81 mg Enteric Coated Tablet PO SCH (10:24)
[2020-12-16] MEDS: methylPREDNISolone Sod Succ 40 MG VIAL IVP SCH ×3 (13:12→23:21)
[2020-12-16] MEDS: Cefepime 2 GM in Sodium Chloride 0.9% 100 ML IVPB SCH ×2 (13:12→23:20)
[2020-12-16] MEDS: Thiamine HCl 200 MG/2 ML VIAL SLOW IVP SCH (17:53)
[2020-12-16] MEDS: Budesonide 0.5 MG/2 ML NEB NEB SCH (18:54)
[2020-12-16] MEDS: Azithromycin 500 MG in Sodium Chloride 0.9% 250 ML 250 ML IVPB SCH (21:22)
[2020-12-16] MEDS: HumaLOG 300 UNITS/3 ML VIAL SC PRN (23:21)
[2020-12-17] MEDS: Clindamycin/D5W 600 MG in Premix Bag 1 BAG IVPB SCH (01:55)
[2020-12-17 04:37] LABS: #Lymphocytes 0.8 thou/uL (1.20-3.40); #Monocytes 0.1 thou/uL (0.11-0.59); %Basophils 0.1 % (0.0-1.0); %Eosinophils 0.2 % (0.0-10.0); %Lymphocytes 8.8 % (21.0-51.0); %Monocytes 1.4 % (0.0-10.0); %Neutrophils 89.6 % (42.0-75.0); Hemoglobin 12.8 g/dL (12.0-16.0); Mean Corpuscular HGB CONC 31.9 g/dL (32.0-36.0); Mean Corpuscular Hemoglobin 27.2 pg (27.0-31.0); Mean Corpuscular Volume 85.2 fL (78.0-98.0); Mean Platelet Volume 7.6 fL (7.4-10.4); Platelet Count 195 thou/uL (130-400); RBC Distribution Width 15.5 % (11.5-14.5); Red Blood Cell (RBC) Count 4.71 mill/uL (4.20-5.40); White Blood Cell (WBC) Count 8.9 thou/uL (4.8-10.8)
[2020-12-17 05:00] LABS: ALT (SGPT) 11 U/L (8-55); AST (SGOT) 8 U/L (5-34); Albumin 3.7 g/dL (3.5-5.0); Alkaline Phosphatase 61 U/L (40-110); Anion Gap 12 mmol/L (10-20); BUN (Urea Nitrogen) 17 mg/dL (9.8-20.1); Bilirubin, Total 0.6 mg/dL (0.2-1.2); Calc. Creatinine Clearance 184 mL/min (70-130); Calcium 9.3 mg/dL (7.8-10.44); Carbon Dioxide 27 mmol/L (22-29); Chloride 104 mmol/L (98-107); Globulin 2.9 g/dL (2.4-3.5); Glucose 182 mg/dL (70-105); Potassium 3.7 mmol/L (3.5-5.1); Protein, Total 6.6 g/dL (6.0-8.3); Sodium 139 mmol/L (136-145)
[2020-12-17] MEDS: HumaLOG 300 UNITS/3 ML VIAL SC PRN ×2 (05:22→18:05)
[2020-12-17] MEDS: methylPREDNISolone Sod Succ 40 MG VIAL IVP SCH ×4 (05:22→23:48)
[2020-12-17] MEDS ORDERED: Fentanyl CADD 100 ML ONE (06:14)
[2020-12-17] MEDS: Fentanyl CADD 100 ML IV SCH ×2 (06:19→19:04)
[2020-12-17] MEDS: Budesonide 0.5 MG/2 ML NEB NEB SCH ×2 (07:22→18:40)
[2020-12-17 07:44] LABS: Actual Bicarbonate (HCO3a) 27.6 mEq/L (22-28); Base Excess (BEa) 2.6 mEq/L (-2.0 to +3.0); CO2 Tension 44.2 mmHg (35.0-45.0); Calcium, Ionized (arterial) 1.24 mmol/L (1.12-1.30); Carboxyhemoglobin (COHb) 0.7 gm% (0.0-3.0); Hemoglobin (Hb) 14.1 g/dL (12.0-16.0); O2 Tension (PaO2), arterial 84.7 mmHg (80.0-100.0); Potassium - ABG Lab 3.98 mmol/L (3.70-5.30); pH, Arterial 7.41 (7.35-7.45)
[2020-12-17 07:50] LABS: Puncture Site RRA
[2020-12-17] MEDS: Aspirin 81 mg Enteric Coated Tablet PO SCH (08:50)
[2020-12-17] MEDS: Enoxaparin Sodium 40 MG/0.4 ML SYRINGE SC SCH ×2 (08:50→20:21)
[2020-12-17] MEDS: Nicotine 21 MG PATCH TD SCH (08:51)
[2020-12-17] MEDS: Furosemide 40 MG/4 ML VIAL SLOW IVP SCH (08:51)
[2020-12-17] MEDS: Lisinopril 5 MG TAB PO SCH ×2 (08:51→20:21)
[2020-12-17] MEDS: Clopidogrel Bisulfate 75 MG TAB PO SCH (08:51)
[2020-12-17] MEDS: Pantoprazole 40 MG VIAL IVP SCH (08:53)
[2020-12-17] MEDS: Cefepime 2 GM in Sodium Chloride 0.9% 100 ML IVPB SCH ×2 (11:32→23:48)
[2020-12-17] MEDS: Morphine 2 MG/ML VIAL SLOW IVP PRN (13:17)
[2020-12-17] MEDS ORDERED: Labetalol HCl 100 MG/20 ML VIAL SLOW IVP PRN (14:37)
[2020-12-17] MEDS: Thiamine HCl 200 MG/2 ML VIAL SLOW IVP SCH (17:56)
[2020-12-18] MEDS: Morphine 2 MG/ML VIAL SLOW IVP PRN (00:28)
[2020-12-18 04:27] LABS: #Lymphocytes 0.9 thou/uL (1.20-3.40); #Monocytes 0.3 thou/uL (0.11-0.59); #Neutrophils 8.9 thou/uL (1.40-6.50); %Basophils 0.1 % (0.0-1.0); %Eosinophils 0.1 % (0.0-10.0); %Lymphocytes 8.5 % (21.0-51.0); %Monocytes 3.2 % (0.0-10.0); Hemoglobin 12.7 g/dL (12.0-16.0); Mean Corpuscular HGB CONC 31.3 g/dL (32.0-36.0); Mean Corpuscular Hemoglobin 27.3 pg (27.0-31.0); Mean Corpuscular Volume 87.1 fL (78.0-98.0); Mean Platelet Volume 7.8 fL (7.4-10.4); Platelet Count 205 thou/uL (130-400); RBC Distribution Width 15.4 % (11.5-14.5); Red Blood Cell (RBC) Count 4.65 mill/uL (4.20-5.40); White Blood Cell (WBC) Count 10.1 thou/uL (4.8-10.8)
[2020-12-18 04:48] LABS: Anion Gap 8 mmol/L (10-20); BUN (Urea Nitrogen) 22 mg/dL (9.8-20.1); Calc. Creatinine Clearance 193 mL/min (70-130); Calcium 9.2 mg/dL (7.8-10.44); Carbon Dioxide 33 mmol/L (22-29); Chloride 103 mmol/L (98-107); Glucose 157 mg/dL (70-105); Potassium 4.1 mmol/L (3.5-5.1); Sodium 140 mmol/L (136-145)
[2020-12-18] MEDS: methylPREDNISolone Sod Succ 40 MG VIAL IVP SCH ×3 (05:26→17:27)
[2020-12-18] MEDS ORDERED: Fentanyl CADD 100 ML ONE ×2 (06:54→19:06)
[2020-12-18] MEDS: Fentanyl CADD 100 ML IV SCH ×2 (06:55→19:10)
[2020-12-18] MEDS: Budesonide 0.5 MG/2 ML NEB NEB SCH ×2 (07:15→18:26)
[2020-12-18 07:35] LABS: Actual Bicarbonate (HCO3a) 31.6 mEq/L (22-28); Base Excess (BEa) 4.4 mEq/L (-2.0 to +3.0); CO2 Tension 58.2 mmHg (35.0-45.0); Calcium, Ionized (arterial) 1.27 mmol/L (1.12-1.30); Carboxyhemoglobin (COHb) 0.6 gm% (0.0-3.0); Hemoglobin (Hb) 13.7 g/dL (12.0-16.0); O2 Tension (PaO2), arterial 125.2 mmHg (80.0-100.0); pH, Arterial 7.35 (7.35-7.45)
[2020-12-18 07:37] LABS: Puncture Site RRA
[2020-12-18] MEDS ORDERED: Magnesium Sulfate 4 GM in Sodium Chloride 0.9% 250 ML 250 ML IVPB SCH (08:00)
[2020-12-18] MEDS: Pantoprazole 40 MG VIAL IVP SCH (08:35)
[2020-12-18] MEDS: Aspirin 81 mg Enteric Coated Tablet PO SCH (08:36)
[2020-12-18] MEDS: Lisinopril 5 MG TAB PO SCH (08:36)
[2020-12-18] MEDS: Clopidogrel Bisulfate 75 MG TAB PO SCH (08:36)
[2020-12-18] MEDS: Enoxaparin Sodium 40 MG/0.4 ML SYRINGE SC SCH ×2 (08:36→20:49)
[2020-12-18] MEDS: Nicotine 21 MG PATCH TD SCH (08:36)
[2020-12-18] MEDS: Amlodipine 10 MG TAB PER TUBE SCH (08:37)
[2020-12-18] MEDS: Metoclopramide HCl 10 MG/2 ML VIAL IVP SCH ×3 (08:40→20:52)
[2020-12-18] MEDS: Cefepime 2 GM in Sodium Chloride 0.9% 100 ML IVPB SCH (12:45)
[2020-12-18] MEDS ORDERED: Labetalol HCl 100 MG/20 ML VIAL SLOW IVP SCH (14:00)
[2020-12-18] MEDS ORDERED: Labetalol HCl 100 MG/20 ML VIAL ONE (14:05)
[2020-12-18] MEDS: Lorazepam 2 MG/ML VIAL SLOW IVP PRN (14:13)
[2020-12-18] MEDS: Thiamine HCl 200 MG/2 ML VIAL SLOW IVP SCH (17:26)
[2020-12-18] MEDS: HumaLOG 300 UNITS/3 ML VIAL SC PRN ×2 (17:38→22:15)
[2020-12-18] MEDS: Lisinopril 10 MG TAB PO SCH (20:48)
[2020-12-19] MEDS: Cefepime 2 GM in Sodium Chloride 0.9% 100 ML IVPB SCH ×3 (00:25→23:08)
[2020-12-19] MEDS: methylPREDNISolone Sod Succ 40 MG VIAL IVP SCH ×5 (00:25→23:11)
[2020-12-19] MEDS: Metoclopramide HCl 10 MG/2 ML VIAL IVP SCH ×4 (03:58→20:30)
[2020-12-19 04:02] LABS: #Lymphocytes 0.8 thou/uL (1.20-3.40); #Monocytes 0.5 thou/uL (0.11-0.59); %Eosinophils 0.1 % (0.0-10.0); %Lymphocytes 7.9 % (21.0-51.0); %Monocytes 5.2 % (0.0-10.0); %Neutrophils 86.7 % (42.0-75.0); Hemoglobin 13.1 g/dL (12.0-16.0); Mean Corpuscular Hemoglobin 27.4 pg (27.0-31.0); Mean Corpuscular Volume 88.3 fL (78.0-98.0); Mean Platelet Volume 8.1 fL (7.4-10.4); Platelet Count 217 thou/uL (130-400); RBC Distribution Width 15.4 % (11.5-14.5); Red Blood Cell (RBC) Count 4.78 mill/uL (4.20-5.40); White Blood Cell (WBC) Count 10.3 thou/uL (4.8-10.8)
[2020-12-19 04:21] LABS: Anion Gap 8 mmol/L (10-20); BUN (Urea Nitrogen) 29 mg/dL (9.8-20.1); Calc. Creatinine Clearance 191 mL/min (70-130); Calcium 9.6 mg/dL (7.8-10.44); Carbon Dioxide 34 mmol/L (22-29); Chloride 105 mmol/L (98-107); Glucose 145 mg/dL (70-105); Potassium 4.5 mmol/L (3.5-5.1); Sodium 142 mmol/L (136-145)
[2020-12-19 07:05] LABS: Actual Bicarbonate (HCO3a) 32.6 mEq/L (22-28); Base Excess (BEa) 4.8 mEq/L (-2.0 to +3.0); Calcium, Ionized (arterial) 1.32 mmol/L (1.12-1.30); Carboxyhemoglobin (COHb) 0.7 gm% (0.0-3.0); Hemoglobin (Hb) 14.1 g/dL (12.0-16.0); O2 Tension (PaO2), arterial 76.1 mmHg (80.0-100.0); Potassium - ABG Lab 4.57 mmol/L (3.70-5.30); pH, Arterial 7.33 (7.35-7.45)
[2020-12-19 07:07] LABS: ALV-art Gradient 130.475 mmHg (0-20); CO2 Tension 62.9 mmHg (35.0-45.0); Puncture Site RRA
[2020-12-19] MEDS: Budesonide 0.5 MG/2 ML NEB NEB SCH ×2 (08:01→19:39)
[2020-12-19] MEDS ORDERED: Fentanyl CADD 100 ML ONE ×3 (08:52→19:20)
[2020-12-19] MEDS: Clopidogrel Bisulfate 75 MG TAB PO SCH (09:47)
[2020-12-19] MEDS: Aspirin 81 mg Enteric Coated Tablet PO SCH (09:47)
[2020-12-19] MEDS: Enoxaparin Sodium 40 MG/0.4 ML SYRINGE SC SCH ×2 (09:48→20:01)
[2020-12-19] MEDS: Pantoprazole 40 MG VIAL IVP SCH (09:48)
[2020-12-19] MEDS: Amlodipine 10 MG TAB PER TUBE SCH (09:48)
[2020-12-19] MEDS: Lisinopril 10 MG TAB PO SCH (09:48)
[2020-12-19] MEDS: Nicotine 21 MG PATCH TD SCH (09:48)
[2020-12-19] MEDS ORDERED: Sterile Water 0 ML ONE (09:48)
[2020-12-19] MEDS: acetaZOLAMIDE Sodium 500 mg Vial IVP SCH ×2 (09:49→20:00)
[2020-12-19] MEDS ORDERED: Sterile Water 10 ML ONE ×2 (09:49→19:49)
[2020-12-19] MEDS: HumaLOG 300 UNITS/3 ML VIAL SC PRN ×2 (17:48→22:22)
[2020-12-19] MEDS: Fentanyl CADD 100 ML IV SCH (19:14)
[2020-12-19] MEDS: Montelukast Sodium 10 mg Tablet PER TUBE SCH (20:01)
[2020-12-19] MEDS ORDERED: Lisinopril 20 MG TAB PO SCH (21:00)
[2020-12-20] MEDS: HumaLOG 300 UNITS/3 ML VIAL SC PRN ×4 (03:37→22:22)
[2020-12-20] MEDS: Metoclopramide HCl 10 MG/2 ML VIAL IVP SCH ×4 (03:37→21:55)
[2020-12-20 03:45] LABS: #Lymphocytes 0.9 thou/uL (1.20-3.40); #Monocytes 0.6 thou/uL (0.11-0.59); #Neutrophils 9.3 thou/uL (1.40-6.50); %Basophils 0.1 % (0.0-1.0); %Eosinophils 0.1 % (0.0-10.0); %Lymphocytes 8.5 % (21.0-51.0); %Monocytes 5.5 % (0.0-10.0); %Neutrophils 85.8 % (42.0-75.0); Hemoglobin 13.2 g/dL (12.0-16.0); Mean Corpuscular HGB CONC 31.6 g/dL (32.0-36.0); Mean Corpuscular Hemoglobin 27.9 pg (27.0-31.0); Mean Corpuscular Volume 88.4 fL (78.0-98.0); Platelet Count 223 thou/uL (130-400); RBC Distribution Width 15.2 % (11.5-14.5); Red Blood Cell (RBC) Count 4.72 mill/uL (4.20-5.40); White Blood Cell (WBC) Count 10.8 thou/uL (4.8-10.8)
[2020-12-20 04:03] LABS: Anion Gap 9 mmol/L (10-20); BUN (Urea Nitrogen) 33 mg/dL (9.8-20.1); Calc. Creatinine Clearance 187 mL/min (70-130); Calcium 9.4 mg/dL (7.8-10.44); Carbon Dioxide 32 mmol/L (22-29); Chloride 108 mmol/L (98-107); Glucose 160 mg/dL (70-105); Potassium 4.7 mmol/L (3.5-5.1); Sodium 144 mmol/L (136-145)
[2020-12-20] MEDS: methylPREDNISolone Sod Succ 40 MG VIAL IVP SCH ×4 (05:41→20:51)
[2020-12-20 07:10] LABS: Actual Bicarbonate (HCO3a) 29.9 mEq/L (22-28); Base Excess (BEa) 2.9 mEq/L (-2.0 to +3.0); CO2 Tension 56.1 mmHg (35.0-45.0); Calcium, Ionized (arterial) 1.33 mmol/L (1.12-1.30); Carboxyhemoglobin (COHb) 0.9 gm% (0.0-3.0); O2 Tension (PaO2), arterial 67.4 mmHg (80.0-100.0); Potassium - ABG Lab 4.46 mmol/L (3.70-5.30); pH, Arterial 7.35 (7.35-7.45)
[2020-12-20 07:29] LABS: ALV-art Gradient 147.675 mmHg (0-20); Puncture Site RRA
[2020-12-20] MEDS: Budesonide 0.5 MG/2 ML NEB NEB SCH ×2 (07:30→18:39)
[2020-12-20] MEDS ORDERED: Furosemide 40 MG/4 ML VIAL SLOW IVP SCH (07:45)
[2020-12-20] MEDS: Pantoprazole 40 MG VIAL IVP SCH (08:00)
[2020-12-20] MEDS: acetaZOLAMIDE Sodium 500 mg Vial IVP SCH ×2 (08:08→21:55)
[2020-12-20] MEDS: Enoxaparin Sodium 40 MG/0.4 ML SYRINGE SC SCH ×2 (08:08→21:55)
[2020-12-20] MEDS: Clopidogrel Bisulfate 75 MG TAB PO SCH (08:11)
[2020-12-20] MEDS: Aspirin Chewable 81 MG TAB PER TUBE SCH (08:11)
[2020-12-20] MEDS: Nicotine 21 MG PATCH TD SCH (08:11)
[2020-12-20] MEDS: Amlodipine 10 MG TAB PER TUBE SCH (08:13)
[2020-12-20] MEDS: Thiamine 100 MG TAB PER TUBE SCH (08:14)
[2020-12-20] MEDS ORDERED: Fentanyl CADD 100 ML ONE (08:34)
[2020-12-20] MEDS: Fentanyl CADD 100 ML IV SCH (08:38)
[2020-12-20] MEDS ORDERED: Lisinopril 10 MG TAB PO SCH (09:00)
[2020-12-20] MEDS: Lorazepam 2 MG/ML VIAL SLOW IVP PRN ×2 (10:04→14:20)
[2020-12-20] MEDS: Cefepime 2 GM in Sodium Chloride 0.9% 100 ML IVPB SCH (11:17)
[2020-12-20] MEDS: Montelukast Sodium 10 mg Tablet PER TUBE SCH (21:55)
[2020-12-20] MEDS: Lisinopril 20 MG TAB PO SCH (21:55)
[2020-12-21] MEDS: Cefepime 2 GM in Sodium Chloride 0.9% 100 ML IVPB SCH ×3 (00:04→23:39)
[2020-12-21] MEDS: methylPREDNISolone Sod Succ 40 MG VIAL IVP SCH ×4 (02:55→20:28)
[2020-12-21] MEDS: Metoclopramide HCl 10 MG/2 ML VIAL IVP SCH ×4 (03:09→20:33)
[2020-12-21] MEDS: HumaLOG 300 UNITS/3 ML VIAL SC PRN ×3 (03:35→22:27)
[2020-12-21 04:03] LABS: #Monocytes 0.8 thou/uL (0.11-0.59); #Neutrophils 10.8 thou/uL (1.40-6.50); %Eosinophils 0.1 % (0.0-10.0); %Lymphocytes 7.6 % (21.0-51.0); %Monocytes 6.3 % (0.0-10.0); Hemoglobin 13.7 g/dL (12.0-16.0); Mean Corpuscular HGB CONC 31.9 g/dL (32.0-36.0); Mean Corpuscular Hemoglobin 28.3 pg (27.0-31.0); Mean Corpuscular Volume 88.8 fL (78.0-98.0); Mean Platelet Volume 8.2 fL (7.4-10.4); Platelet Count 231 thou/uL (130-400); Red Blood Cell (RBC) Count 4.83 mill/uL (4.20-5.40); White Blood Cell (WBC) Count 12.6 thou/uL (4.8-10.8)
[2020-12-21 04:26] LABS: Anion Gap 8 mmol/L (10-20); BUN (Urea Nitrogen) 33 mg/dL (9.8-20.1); Calc. Creatinine Clearance 209 mL/min (70-130); Calcium 9.5 mg/dL (7.8-10.44); Carbon Dioxide 32 mmol/L (22-29); Chloride 106 mmol/L (98-107); Glucose 170 mg/dL (70-105); Potassium 4.2 mmol/L (3.5-5.1); Sodium 142 mmol/L (136-145)
[2020-12-21] MEDS: Fentanyl CADD 100 ML IV SCH (05:09)
[2020-12-21 07:22] LABS: Actual Bicarbonate (HCO3a) 28.9 mEq/L (22-28); Base Excess (BEa) 1.3 mEq/L (-2.0 to +3.0); CO2 Tension 57.7 mmHg (35.0-45.0); Calcium, Ionized (arterial) 1.34 mmol/L (1.12-1.30); Carboxyhemoglobin (COHb) 1.1 gm% (0.0-3.0); Hemoglobin (Hb) 15.2 g/dL (12.0-16.0); O2 Tension (PaO2), arterial 62.2 mmHg (80.0-100.0); Potassium - ABG Lab 4.37 mmol/L (3.70-5.30); pH, Arterial 7.32 (7.35-7.45)
[2020-12-21] MEDS: Budesonide 0.5 MG/2 ML NEB NEB SCH ×2 (07:54→18:34)
[2020-12-21 07:57] LABS: ALV-art Gradient 150.875 mmHg (0-20); Puncture Site RRA
[2020-12-21] MEDS: Amlodipine 10 MG TAB PER TUBE SCH (08:14)
[2020-12-21] MEDS: Enoxaparin Sodium 40 MG/0.4 ML SYRINGE SC SCH ×2 (08:14→20:27)
[2020-12-21] MEDS: Clopidogrel Bisulfate 75 MG TAB PO SCH (08:14)
[2020-12-21] MEDS: Lisinopril 20 MG TAB PO SCH ×2 (08:14→20:27)
[2020-12-21] MEDS: Thiamine 100 MG TAB PER TUBE SCH (08:15)
[2020-12-21] MEDS: Aspirin Chewable 81 MG TAB PER TUBE SCH (08:15)
[2020-12-21] MEDS: acetaZOLAMIDE Sodium 500 mg Vial IVP SCH ×2 (08:15→20:27)
[2020-12-21] MEDS: Pantoprazole 40 MG VIAL IVP SCH (08:15)
[2020-12-21] MEDS ORDERED: Furosemide 40 MG/4 ML VIAL SLOW IVP SCH (08:15)
[2020-12-21] MEDS: Nicotine 21 MG PATCH TD SCH (08:16)
[2020-12-21] MEDS: hydrALAZINE 20 MG/ML VIAL SLOW IVP PRN (09:05)
[2020-12-21] MEDS: NIFEdipine XL 60 MG TAB PO SCH (09:52)
[2020-12-21] MEDS: Montelukast Sodium 10 mg Tablet PER TUBE SCH (20:27)
[2020-12-22] MEDS: Metoclopramide HCl 10 MG/2 ML VIAL IVP SCH ×2 (02:56→07:48)
[2020-12-22] MEDS: HumaLOG 300 UNITS/3 ML VIAL SC PRN ×2 (04:09→10:16)
[2020-12-22 04:41] LABS: #Lymphocytes 0.9 thou/uL (1.20-3.40); #Monocytes 1.1 thou/uL (0.11-0.59); %Basophils 0.2 % (0.0-1.0); %Eosinophils 0.1 % (0.0-10.0); %Lymphocytes 7.7 % (21.0-51.0); %Monocytes 9.3 % (0.0-10.0); %Neutrophils 82.7 % (42.0-75.0); Hemoglobin 14.5 g/dL (12.0-16.0); Mean Corpuscular HGB CONC 32.2 g/dL (32.0-36.0); Mean Corpuscular Hemoglobin 28.2 pg (27.0-31.0); Mean Corpuscular Volume 87.6 fL (78.0-98.0); Mean Platelet Volume 8.1 fL (7.4-10.4); Platelet Count 231 thou/uL (130-400); RBC Distribution Width 15.3 % (11.5-14.5); Red Blood Cell (RBC) Count 5.15 mill/uL (4.20-5.40); White Blood Cell (WBC) Count 12.1 thou/uL (4.8-10.8)
[2020-12-22 05:00] LABS: Anion Gap 9 mmol/L (10-20); BUN (Urea Nitrogen) 36 mg/dL (9.8-20.1); Calc. Creatinine Clearance 191 mL/min (70-130); Calcium 9.7 mg/dL (7.8-10.44); Carbon Dioxide 30 mmol/L (22-29); Chloride 105 mmol/L (98-107); Glucose 184 mg/dL (70-105); Potassium 3.9 mmol/L (3.5-5.1); Sodium 140 mmol/L (136-145)
[2020-12-22 07:04] LABS: Actual Bicarbonate (HCO3a) 27.5 mEq/L (22-28); Base Excess (BEa) 2.1 mEq/L (-2.0 to +3.0); CO2 Tension 45.5 mmHg (35.0-45.0); Calcium, Ionized (arterial) 1.33 mmol/L (1.12-1.30); Carboxyhemoglobin (COHb) 0.8 gm% (0.0-3.0); Hemoglobin (Hb) 15.4 g/dL (12.0-16.0); O2 Tension (PaO2), arterial 73.5 mmHg (80.0-100.0); Potassium - ABG Lab 4.28 mmol/L (3.70-5.30)
[2020-12-22 07:26] LABS: ALV-art Gradient 154.825 mmHg (0-20); Puncture Site RRA
[2020-12-22] MEDS: Budesonide 0.5 MG/2 ML NEB NEB SCH ×2 (07:27→18:46)
[2020-12-22] MEDS: Lisinopril 20 MG TAB PO SCH ×2 (07:43→20:42)
[2020-12-22] MEDS: Thiamine 100 MG TAB PER TUBE SCH (07:44)
[2020-12-22] MEDS: NIFEdipine XL 60 MG TAB PO SCH (07:44)
[2020-12-22] MEDS: Aspirin Chewable 81 MG TAB PER TUBE SCH (07:44)
[2020-12-22] MEDS: Clopidogrel Bisulfate 75 MG TAB PO SCH (07:44)
[2020-12-22] MEDS: acetaZOLAMIDE Sodium 500 mg Vial IVP SCH (07:44)
[2020-12-22] MEDS: Nicotine 21 MG PATCH TD SCH (07:45)
[2020-12-22] MEDS: Enoxaparin Sodium 40 MG/0.4 ML SYRINGE SC SCH ×2 (07:45→20:42)
[2020-12-22] MEDS: Pantoprazole 40 MG VIAL IVP SCH (07:45)
[2020-12-22] MEDS: methylPREDNISolone Sod Succ 40 MG VIAL IVP SCH ×2 (07:49→20:42)
[2020-12-22] MEDS ORDERED: Metoprolol Tartrate 5 MG/5 ML VIAL ONE (11:18)
[2020-12-22] MEDS ORDERED: Furosemide 40 MG/4 ML VIAL ONE (12:03)
[2020-12-22] MEDS: hydrALAZINE 20 MG/ML VIAL SLOW IVP PRN (12:14)
[2020-12-22] MEDS: Cefepime 2 GM in Sodium Chloride 0.9% 100 ML IVPB SCH (13:05)
[2020-12-22] MEDS ORDERED: Lorazepam 2 MG/ML VIAL ONE (13:13)
[2020-12-22] MEDS: niCARdipine 25 MG in Sodium Chloride 0.9% 250 ML 240 ML IVPB SCH ×3 (15:46→20:04)
[2020-12-22 15:58] LABS: Anion Gap 13 mmol/L (10-20); BUN (Urea Nitrogen) 39 mg/dL (9.8-20.1); Calc. Creatinine Clearance 160 mL/min (70-130); Carbon Dioxide 28 mmol/L (22-29); Chloride 107 mmol/L (98-107); Glucose 190 mg/dL (70-105); Magnesium 2.4 mg/dL (1.6-2.6); Potassium 3.8 mmol/L (3.5-5.1); Sodium 144 mmol/L (136-145)
[2020-12-22] MEDS: Labetalol HCl 100 MG/20 ML VIAL SLOW IVP PRN (19:44)
[2020-12-22] MEDS: Montelukast Sodium 10 mg Tablet PER TUBE SCH (20:48)
[2020-12-22] MEDS: niCARdipine 50 MG in Sodium Chloride 0.9% 250 ML 230 ML IVPB SCH (21:52)
[2020-12-23] MEDS: Cefepime 2 GM in Sodium Chloride 0.9% 100 ML IVPB SCH ×3 (00:40→23:15)
[2020-12-23] MEDS: niCARdipine 50 MG in Sodium Chloride 0.9% 250 ML 230 ML IVPB SCH ×2 (01:36→05:04)
[2020-12-23 04:41] LABS: #Lymphocytes 1.2 thou/uL (1.20-3.40); #Monocytes 0.9 thou/uL (0.11-0.59); #Neutrophils 16.5 thou/uL (1.40-6.50); %Basophils 0.1 % (0.0-1.0); %Eosinophils 0.1 % (0.0-10.0); %Lymphocytes 6.3 % (21.0-51.0); %Monocytes 4.8 % (0.0-10.0); %Neutrophils 88.8 % (42.0-75.0); Hemoglobin 14.7 g/dL (12.0-16.0); Mean Corpuscular HGB CONC 31.1 g/dL (32.0-36.0); Mean Corpuscular Hemoglobin 27.1 pg (27.0-31.0); Mean Corpuscular Volume 87.2 fL (78.0-98.0); Platelet Count 289 thou/uL (130-400); RBC Distribution Width 15.9 % (11.5-14.5); Red Blood Cell (RBC) Count 5.41 mill/uL (4.20-5.40); White Blood Cell (WBC) Count 18.6 thou/uL (4.8-10.8)
[2020-12-23 04:57] LABS: Anion Gap 13 mmol/L (10-20); BUN (Urea Nitrogen) 39 mg/dL (9.8-20.1); Calc. Creatinine Clearance 165 mL/min (70-130); Carbon Dioxide 26 mmol/L (22-29); Chloride 108 mmol/L (98-107); Glucose 196 mg/dL (70-105); Potassium 4.1 mmol/L (3.5-5.1); Sodium 143 mmol/L (136-145)
[2020-12-23] MEDS: HumaLOG 300 UNITS/3 ML VIAL SC PRN ×2 (05:49→11:06)
[2020-12-23] MEDS: Budesonide 0.5 MG/2 ML NEB NEB SCH ×2 (07:22→18:39)
[2020-12-23] MEDS: Clopidogrel Bisulfate 75 MG TAB PO SCH (08:17)
[2020-12-23] MEDS: Thiamine 100 MG TAB PER TUBE SCH (08:17)
[2020-12-23] MEDS: Enoxaparin Sodium 40 MG/0.4 ML SYRINGE SC SCH ×2 (08:17→19:51)
[2020-12-23] MEDS: Lisinopril 20 MG TAB PO SCH ×2 (08:17→19:54)
[2020-12-23] MEDS: Aspirin Chewable 81 MG TAB PER TUBE SCH (08:17)
[2020-12-23] MEDS: methylPREDNISolone Sod Succ 40 MG VIAL IVP SCH ×2 (08:17→19:52)
[2020-12-23] MEDS: Pantoprazole 40 MG VIAL IVP SCH (08:18)
[2020-12-23] MEDS: NIFEdipine XL 60 MG TAB PO SCH (08:18)
[2020-12-23] MEDS: Nicotine 21 MG PATCH TD SCH (08:19)
[2020-12-23] MEDS ORDERED: Furosemide 100 MG/10 ML VIAL SLOW IVP SCH (11:30)
[2020-12-23] MEDS: Labetalol HCl 100 MG/20 ML VIAL SLOW IVP PRN (12:13)
[2020-12-23] MEDS ORDERED: Digoxin 0.5 MG/2 ML AMP SLOW IVP SCH ×2 (12:45→14:30)
[2020-12-23] MEDS ORDERED: Digoxin 0.125 MG TAB ONE (12:48)
[2020-12-23] MEDS ORDERED: Digoxin 0.5 MG/2 ML AMP ONE (12:48)
[2020-12-23] MEDS ORDERED: Magnesium Sulfate 3 GM in Sodium Chloride 0.9% 100 ML IVPB SCH (13:00)
[2020-12-23] MEDS: Diltiazem HCl 125 MG, Admixture Fee 1 EACH in Sodium Chloride 0.9% 100 ML IVPB SCH ×2 (15:28→23:15)
[2020-12-23] MEDS ORDERED: Potassium Chloride 20 MEQ TAB PO SCH (17:00)
[2020-12-23] MEDS: Potassium Chloride 20 MEQ in Premix Bag 1 BAG IVPB SCH ×2 (18:51→20:03)
[2020-12-23] MEDS: Montelukast Sodium 10 mg Tablet PER TUBE SCH (19:54)
[2020-12-23] MEDS ORDERED: Furosemide 40 MG/4 ML VIAL SLOW IVP SCH (20:00)
[2020-12-24 04:09] LABS: #Lymphocytes 1.1 thou/uL (1.20-3.40); #Neutrophils 14.6 thou/uL (1.40-6.50); %Basophils 0.1 % (0.0-1.0); %Eosinophils 0.1 % (0.0-10.0); %Lymphocytes 6.6 % (21.0-51.0); %Monocytes 5.8 % (0.0-10.0); %Neutrophils 87.4 % (42.0-75.0); Hemoglobin 14.2 g/dL (12.0-16.0); Mean Corpuscular HGB CONC 30.6 g/dL (32.0-36.0); Mean Corpuscular Hemoglobin 26.9 pg (27.0-31.0); Mean Corpuscular Volume 87.8 fL (78.0-98.0); Mean Platelet Volume 8.4 fL (7.4-10.4); Platelet Count 264 thou/uL (130-400); RBC Distribution Width 16.1 % (11.5-14.5); Red Blood Cell (RBC) Count 5.29 mill/uL (4.20-5.40); White Blood Cell (WBC) Count 16.7 thou/uL (4.8-10.8)
[2020-12-24 04:15] LABS: Anion Gap 12 mmol/L (10-20); BUN (Urea Nitrogen) 41 mg/dL (9.8-20.1); Calc. Creatinine Clearance 159 mL/min (70-130); Calcium 9.9 mg/dL (7.8-10.44); Carbon Dioxide 28 mmol/L (22-29); Chloride 109 mmol/L (98-107); Glucose 187 mg/dL (70-105); Potassium 4.2 mmol/L (3.5-5.1); Sodium 145 mmol/L (136-145)
[2020-12-24] MEDS: Budesonide 0.5 MG/2 ML NEB NEB SCH ×2 (07:57→18:17)
[2020-12-24] MEDS: Pantoprazole 40 MG VIAL IVP SCH (08:00)
[2020-12-24] MEDS: Furosemide 40 MG/4 ML VIAL SLOW IVP SCH (08:04)
[2020-12-24] MEDS: Enoxaparin Sodium 40 MG/0.4 ML SYRINGE SC SCH (08:04)
[2020-12-24] MEDS: methylPREDNISolone Sod Succ 40 MG VIAL IVP SCH ×2 (08:04→21:05)
[2020-12-24] MEDS: Aspirin Chewable 81 MG TAB PER TUBE SCH (08:12)
[2020-12-24] MEDS: NIFEdipine XL 60 MG TAB PO SCH (08:12)
[2020-12-24] MEDS: Clopidogrel Bisulfate 75 MG TAB PO SCH (08:13)
[2020-12-24] MEDS: Lisinopril 20 MG TAB PO SCH ×2 (08:13→21:05)
[2020-12-24] MEDS: Nicotine 21 MG PATCH TD SCH (08:13)
[2020-12-24] MEDS: Thiamine 100 MG TAB PER TUBE SCH (08:14)
[2020-12-24] MEDS: Cefepime 2 GM in Sodium Chloride 0.9% 100 ML IVPB SCH (12:59)
[2020-12-24] MEDS: Polyethylene Glycol 3350 17 GM Packet PO PRN (14:29)
[2020-12-24] MEDS: HumaLOG 300 UNITS/3 ML VIAL SC PRN ×2 (16:21→21:59)
[2020-12-24] MEDS: Montelukast Sodium 10 mg Tablet PER TUBE SCH (21:05)
[2020-12-24] MEDS: Apixaban 5 MG TAB PO SCH (21:05)
[2020-12-25] MEDS: Cefepime 2 GM in Sodium Chloride 0.9% 100 ML IVPB SCH ×2 (01:17→12:21)
[2020-12-25 04:58] LABS: #Lymphocytes 1.3 thou/uL (1.20-3.40); #Monocytes 0.8 thou/uL (0.11-0.59); #Neutrophils 12.3 thou/uL (1.40-6.50); %Eosinophils 0.1 % (0.0-10.0); %Lymphocytes 8.8 % (21.0-51.0); %Monocytes 5.8 % (0.0-10.0); %Neutrophils 85.3 % (42.0-75.0); Hemoglobin 13.5 g/dL (12.0-16.0); Mean Corpuscular HGB CONC 31.3 g/dL (32.0-36.0); Mean Corpuscular Hemoglobin 27.4 pg (27.0-31.0); Mean Corpuscular Volume 87.6 fL (78.0-98.0); Mean Platelet Volume 8.8 fL (7.4-10.4); Platelet Count 240 thou/uL (130-400); RBC Distribution Width 15.8 % (11.5-14.5); Red Blood Cell (RBC) Count 4.92 mill/uL (4.20-5.40); White Blood Cell (WBC) Count 14.4 thou/uL (4.8-10.8)
[2020-12-25 05:16] LABS: Anion Gap 11 mmol/L (10-20); BUN (Urea Nitrogen) 41 mg/dL (9.8-20.1); Calc. Creatinine Clearance 163 mL/min (70-130); Calcium 9.9 mg/dL (7.8-10.44); Carbon Dioxide 29 mmol/L (22-29); Chloride 111 mmol/L (98-107); Glucose 208 mg/dL (70-105); Potassium 3.9 mmol/L (3.5-5.1); Sodium 147 mmol/L (136-145)
[2020-12-25] MEDS: HumaLOG 300 UNITS/3 ML VIAL SC PRN ×3 (08:00→16:51)
[2020-12-25] MEDS: Budesonide 0.5 MG/2 ML NEB NEB SCH ×2 (08:18→18:16)
[2020-12-25] MEDS: Nicotine 21 MG PATCH TD SCH (08:46)
[2020-12-25] MEDS: methylPREDNISolone Sod Succ 40 MG VIAL IVP SCH (08:46)
[2020-12-25] MEDS: Apixaban 5 MG TAB PO SCH ×2 (08:46→20:53)
[2020-12-25] MEDS: Furosemide 40 MG/4 ML VIAL SLOW IVP SCH (08:46)
[2020-12-25] MEDS: Aspirin Chewable 81 MG TAB PER TUBE SCH (08:47)
[2020-12-25] MEDS: Thiamine 100 MG TAB PER TUBE SCH (08:47)
[2020-12-25] MEDS: Lisinopril 20 MG TAB PO SCH ×2 (08:47→20:53)
[2020-12-25] MEDS ORDERED: Pantoprazole 40 MG GRANULES PACKET PO SCH (09:00)
[2020-12-25] MEDS: Senokot 8.6 MG TAB PO PRN (16:07)
[2020-12-25] MEDS ORDERED: Bisacodyl 10 MG SUPP PR PRN (16:39)
[2020-12-25] MEDS: Montelukast Sodium 10 mg Tablet PER TUBE SCH (20:54)
[2020-12-26 05:14] LABS: #Lymphocytes 1.7 thou/uL (1.20-3.40); #Monocytes 1.3 thou/uL (0.11-0.59); #Neutrophils 12.8 thou/uL (1.40-6.50); %Eosinophils 0.2 % (0.0-10.0); %Lymphocytes 10.6 % (21.0-51.0); %Monocytes 8.1 % (0.0-10.0); %Neutrophils 81.1 % (42.0-75.0); Hemoglobin 13.6 g/dL (12.0-16.0); Mean Corpuscular HGB CONC 30.5 g/dL (32.0-36.0); Mean Corpuscular Hemoglobin 27.1 pg (27.0-31.0); Mean Corpuscular Volume 88.9 fL (78.0-98.0); Mean Platelet Volume 8.8 fL (7.4-10.4); Platelet Count 221 thou/uL (130-400); RBC Distribution Width 15.5 % (11.5-14.5); White Blood Cell (WBC) Count 15.8 thou/uL (4.8-10.8)
[2020-12-26 05:34] LABS: Anion Gap 9 mmol/L (10-20); BUN (Urea Nitrogen) 30 mg/dL (9.8-20.1); Calc. Creatinine Clearance 184 mL/min (70-130); Calcium 9.7 mg/dL (7.8-10.44); Carbon Dioxide 29 mmol/L (22-29); Chloride 108 mmol/L (98-107); Glucose 159 mg/dL (70-105); Potassium 3.4 mmol/L (3.5-5.1); Sodium 143 mmol/L (136-145)
[2020-12-26] MEDS: Budesonide 0.5 MG/2 ML NEB NEB SCH ×2 (07:25→20:18)
[2020-12-26] MEDS: predniSONE 20 MG TAB PO SCH (08:55)
[2020-12-26] MEDS: Furosemide 40 MG/4 ML VIAL SLOW IVP SCH (08:56)
[2020-12-26] MEDS: Lisinopril 20 MG TAB PO SCH ×2 (08:56→20:55)
[2020-12-26] MEDS: Aspirin Chewable 81 MG TAB PER TUBE SCH (08:56)
[2020-12-26] MEDS: Apixaban 5 MG TAB PO SCH ×2 (08:56→20:55)
[2020-12-26] MEDS: Nicotine 21 MG PATCH TD SCH (08:56)
[2020-12-26] MEDS: HumaLOG 300 UNITS/3 ML VIAL SC PRN ×2 (11:53→17:23)
[2020-12-26] MEDS: Montelukast Sodium 10 mg Tablet PER TUBE SCH (20:55)
[2020-12-27 06:13] LABS: #Lymphocytes 2.3 thou/uL (1.20-3.40); #Monocytes 1.3 thou/uL (0.11-0.59); #Neutrophils 12.1 thou/uL (1.40-6.50); %Basophils 0.2 % (0.0-1.0); %Eosinophils 0.3 % (0.0-10.0); %Lymphocytes 14.8 % (21.0-51.0); %Monocytes 8.4 % (0.0-10.0); %Neutrophils 76.4 % (42.0-75.0); Hemoglobin 13.7 g/dL (12.0-16.0); Mean Corpuscular HGB CONC 31.7 g/dL (32.0-36.0); Mean Corpuscular Hemoglobin 27.7 pg (27.0-31.0); Mean Corpuscular Volume 87.6 fL (78.0-98.0); Mean Platelet Volume 8.7 fL (7.4-10.4); Platelet Count 186 thou/uL (130-400); RBC Distribution Width 15.3 % (11.5-14.5); Red Blood Cell (RBC) Count 4.94 mill/uL (4.20-5.40); White Blood Cell (WBC) Count 15.8 thou/uL (4.8-10.8)
[2020-12-27 06:34] LABS: Anion Gap 10 mmol/L (10-20); BUN (Urea Nitrogen) 24 mg/dL (9.8-20.1); Calc. Creatinine Clearance 215 mL/min (70-130); Calcium 9.7 mg/dL (7.8-10.44); Carbon Dioxide 29 mmol/L (22-29); Chloride 102 mmol/L (98-107); Glucose 125 mg/dL (70-105); Potassium 3.3 mmol/L (3.5-5.1); Sodium 138 mmol/L (136-145)
[2020-12-27] MEDS: Budesonide 0.5 MG/2 ML NEB NEB SCH ×2 (07:26→19:03)
[2020-12-27] MEDS ORDERED: Potassium Chloride 20 MEQ TAB PO SCH (07:45)
[2020-12-27] MEDS: Lisinopril 20 MG TAB PO SCH ×2 (08:28→20:21)
[2020-12-27] MEDS: Apixaban 5 MG TAB PO SCH ×2 (08:28→20:21)
[2020-12-27] MEDS: Aspirin Chewable 81 MG TAB PER TUBE SCH (08:29)
[2020-12-27] MEDS: predniSONE 20 MG TAB PO SCH (08:29)
[2020-12-27] MEDS: Furosemide 40 MG TAB PO SCH (08:29)
[2020-12-27] MEDS: Nicotine 21 MG PATCH TD SCH (08:30)
[2020-12-27] MEDS: Montelukast Sodium 10 mg Tablet PER TUBE SCH (20:22)
[2020-12-28] MEDS: Budesonide 0.5 MG/2 ML NEB NEB SCH ×2 (07:28→19:22)
[2020-12-28] MEDS: predniSONE 20 MG TAB PO SCH (08:45)
[2020-12-28] MEDS: Apixaban 5 MG TAB PO SCH ×2 (08:45→20:17)
[2020-12-28] MEDS: Furosemide 40 MG TAB PO SCH (08:45)
[2020-12-28] MEDS: Aspirin Chewable 81 MG TAB PER TUBE SCH (08:45)
[2020-12-28] MEDS: Lisinopril 20 MG TAB PO SCH ×2 (08:45→20:17)
[2020-12-28] MEDS: Nicotine 21 MG PATCH TD SCH (08:46)
[2020-12-28 09:58] LABS: #Basophils 0.1 thou/uL (0.0-0.2); #Eosinphils 0.2 thou/uL (0.0-0.7); #Lymphocytes 2.6 thou/uL (1.20-3.40); #Monocytes 1.1 thou/uL (0.11-0.59); #Neutrophils 11.2 thou/uL (1.40-6.50); %Basophils 0.4 % (0.0-1.0); %Eosinophils 1.3 % (0.0-10.0); %Lymphocytes 17.1 % (21.0-51.0); %Monocytes 7.4 % (0.0-10.0); %Neutrophils 73.8 % (42.0-75.0); Hemoglobin 13.2 g/dL (12.0-16.0); Mean Corpuscular HGB CONC 30.4 g/dL (32.0-36.0); Mean Corpuscular Hemoglobin 26.3 pg (27.0-31.0); Mean Corpuscular Volume 86.6 fL (78.0-98.0); Mean Platelet Volume 9.3 fL (7.4-10.4); Platelet Count 178 thou/uL (130-400); RBC Distribution Width 15.3 % (11.5-14.5); Red Blood Cell (RBC) Count 5.02 mill/uL (4.20-5.40); White Blood Cell (WBC) Count 15.2 thou/uL (4.8-10.8)
[2020-12-28 10:20] LABS: Anion Gap 16 mmol/L (10-20); BUN (Urea Nitrogen) 20 mg/dL (9.8-20.1); Calc. Creatinine Clearance 231 mL/min (70-130); Calcium 9.2 mg/dL (7.8-10.44); Carbon Dioxide 21 mmol/L (22-29); Chloride 102 mmol/L (98-107); Glucose 144 mg/dL (70-105); Potassium 3.8 mmol/L (3.5-5.1); Sodium 135 mmol/L (136-145)
[2020-12-28] MEDS: Montelukast Sodium 10 mg Tablet PER TUBE SCH (20:17)
[2020-12-29 04:17] LABS: Hemoglobin 13.5 g/dL (12.0-16.0); Mean Corpuscular HGB CONC 31.2 g/dL (32.0-36.0); Mean Corpuscular Hemoglobin 27.3 pg (27.0-31.0); Mean Corpuscular Volume 87.5 fL (78.0-98.0); Mean Platelet Volume 9.4 fL (7.4-10.4); Platelet Count 198 thou/uL (130-400); RBC Distribution Width 15.4 % (11.5-14.5); Red Blood Cell (RBC) Count 4.94 mill/uL (4.20-5.40)
[2020-12-29 04:18] LABS: #Eosinphils 0.1 thou/uL (0.0-0.7); #Lymphocytes 2.6 thou/uL (1.20-3.40); #Monocytes 1.1 thou/uL (0.11-0.59); #Neutrophils 10.1 thou/uL (1.40-6.50); %Eosinophils 0.7 % (0.0-10.0); %Lymphocytes 18.4 % (21.0-51.0); %Monocytes 8.2 % (0.0-10.0); %Neutrophils 72.7 % (42.0-75.0)
[2020-12-29 04:26] LABS: Anion Gap 11 mmol/L (10-20); BUN (Urea Nitrogen) 20 mg/dL (9.8-20.1); Calc. Creatinine Clearance 215 mL/min (70-130); Calcium 9.4 mg/dL (7.8-10.44); Carbon Dioxide 28 mmol/L (22-29); Chloride 101 mmol/L (98-107); Glucose 107 mg/dL (70-105); Potassium 3.6 mmol/L (3.5-5.1); Sodium 136 mmol/L (136-145)
[2020-12-29] MEDS: Budesonide 0.5 MG/2 ML NEB NEB SCH ×2 (07:13→19:56)
[2020-12-29] MEDS: Apixaban 5 MG TAB PO SCH ×2 (09:33→20:45)
[2020-12-29] MEDS: Aspirin Chewable 81 MG TAB PER TUBE SCH (09:33)
[2020-12-29] MEDS: predniSONE 20 MG TAB PO SCH (09:33)
[2020-12-29] MEDS: Lisinopril 20 MG TAB PO SCH ×2 (09:34→20:45)
[2020-12-29] MEDS: Nicotine 21 MG PATCH TD SCH (09:34)
[2020-12-29] MEDS: Furosemide 40 MG TAB PO SCH (09:34)
[2020-12-29] MEDS: Polyethylene Glycol 3350 17 GM Packet PO PRN (11:44)
[2020-12-29] MEDS: Montelukast Sodium 10 mg Tablet PER TUBE SCH (20:45)
[2020-12-29] MEDS: Acetaminophen 325 MG TAB PO PRN (20:52)
[2020-12-30 05:15] LABS: #Eosinphils 0.2 thou/uL (0.0-0.7); #Lymphocytes 2.6 thou/uL (1.20-3.40); #Monocytes 1.2 thou/uL (0.11-0.59); #Neutrophils 11.3 thou/uL (1.40-6.50); %Basophils 0.2 % (0.0-1.0); %Eosinophils 1.1 % (0.0-10.0); %Lymphocytes 17.1 % (21.0-51.0); %Monocytes 7.7 % (0.0-10.0); %Neutrophils 73.9 % (42.0-75.0); Hemoglobin 13.7 g/dL (12.0-16.0); Mean Corpuscular HGB CONC 31.1 g/dL (32.0-36.0); Mean Corpuscular Hemoglobin 26.7 pg (27.0-31.0); Mean Platelet Volume 9.3 fL (7.4-10.4); Platelet Count 215 thou/uL (130-400); RBC Distribution Width 15.3 % (11.5-14.5); Red Blood Cell (RBC) Count 5.14 mill/uL (4.20-5.40); White Blood Cell (WBC) Count 15.2 thou/uL (4.8-10.8)
[2020-12-30 05:27] LABS: Anion Gap 15 mmol/L (10-20); BUN (Urea Nitrogen) 22 mg/dL (9.8-20.1); Calc. Creatinine Clearance 182 mL/min (70-130); Calcium 9.6 mg/dL (7.8-10.44); Carbon Dioxide 24 mmol/L (22-29); Chloride 101 mmol/L (98-107); Glucose 142 mg/dL (70-105); Potassium 3.8 mmol/L (3.5-5.1); Sodium 136 mmol/L (136-145)
[2020-12-30] MEDS: Furosemide 40 MG TAB PO SCH (06:30)
[2020-12-30] MEDS: Budesonide 0.5 MG/2 ML NEB NEB SCH (06:36)
[2020-12-30] MEDS: Nicotine 21 MG PATCH TD SCH (08:39)
[2020-12-30] MEDS: predniSONE 20 MG TAB PO SCH (08:39)
[2020-12-30] MEDS: Aspirin Chewable 81 MG TAB PER TUBE SCH (08:41)
[2020-12-30] MEDS: Lisinopril 20 MG TAB PO SCH ×2 (08:42→20:23)
[2020-12-30] MEDS: Apixaban 5 MG TAB PO SCH ×2 (08:43→20:23)
[2020-12-30] MEDS: Acetaminophen 325 MG TAB PO PRN (09:22)
[2020-12-30] MEDS: HumaLOG 300 UNITS/3 ML VIAL SC PRN (17:56)
[2020-12-30] MEDS: Montelukast Sodium 10 mg Tablet PER TUBE SCH (20:23)
[2020-12-31] MEDS: Budesonide 0.5 MG/2 ML NEB NEB SCH ×3 (02:15→19:33)
[2020-12-31 05:45] LABS: #Eosinphils 0.1 thou/uL (0.0-0.7); #Lymphocytes 2.3 thou/uL (1.20-3.40); #Monocytes 1.1 thou/uL (0.11-0.59); #Neutrophils 10.3 thou/uL (1.40-6.50); %Eosinophils 0.9 % (0.0-10.0); %Lymphocytes 16.5 % (21.0-51.0); %Monocytes 8.2 % (0.0-10.0); %Neutrophils 74.4 % (42.0-75.0); Hemoglobin 13.8 g/dL (12.0-16.0); Mean Corpuscular HGB CONC 31.8 g/dL (32.0-36.0); Mean Corpuscular Hemoglobin 27.1 pg (27.0-31.0); Mean Corpuscular Volume 85.2 fL (78.0-98.0); Mean Platelet Volume 9.1 fL (7.4-10.4); Platelet Count 232 thou/uL (130-400); RBC Distribution Width 15.6 % (11.5-14.5); Red Blood Cell (RBC) Count 5.08 mill/uL (4.20-5.40); White Blood Cell (WBC) Count 13.9 thou/uL (4.8-10.8)
[2020-12-31 06:16] LABS: Anion Gap 15 mmol/L (10-20); BUN (Urea Nitrogen) 21 mg/dL (9.8-20.1); Calc. Creatinine Clearance 197 mL/min (70-130); Calcium 9.6 mg/dL (7.8-10.44); Carbon Dioxide 22 mmol/L (22-29); Chloride 102 mmol/L (98-107); Glucose 105 mg/dL (70-105); Potassium 4.4 mmol/L (3.5-5.1); Sodium 135 mmol/L (136-145)
[2020-12-31] MEDS: Furosemide 40 MG TAB PO SCH (06:32)
[2020-12-31] MEDS: Calcium Carbonate 500 MG ChewTAB PO PRN ×2 (08:35→22:41)
[2020-12-31] MEDS: Acetaminophen 325 MG TAB PO PRN ×2 (08:37→22:40)
[2020-12-31] MEDS: predniSONE 20 MG TAB PO SCH (08:38)
[2020-12-31] MEDS: Aspirin Chewable 81 MG TAB PER TUBE SCH (08:40)
[2020-12-31] MEDS: Lisinopril 20 MG TAB PO SCH ×2 (08:40→20:59)
[2020-12-31] MEDS: Apixaban 5 MG TAB PO SCH ×2 (08:40→20:59)
[2020-12-31] MEDS: Nicotine 21 MG PATCH TD SCH (08:41)
[2020-12-31] MEDS: HumaLOG 300 UNITS/3 ML VIAL SC PRN (16:26)
[2020-12-31] MEDS: Montelukast Sodium 10 mg Tablet PER TUBE SCH (20:59)
[2021-01-01] MEDS: Budesonide 0.5 MG/2 ML NEB NEB SCH ×2 (06:42→18:43)
[2021-01-01] MEDS: Acetaminophen 325 MG TAB PO PRN (07:56)
[2021-01-01] MEDS: Lisinopril 20 MG TAB PO SCH ×2 (07:57→20:18)
[2021-01-01] MEDS: Apixaban 5 MG TAB PO SCH ×2 (07:58→20:18)
[2021-01-01] MEDS: Aspirin Chewable 81 MG TAB PER TUBE SCH (07:58)
[2021-01-01] MEDS: predniSONE 20 MG TAB PO SCH (07:59)
[2021-01-01] MEDS: Furosemide 40 MG TAB PO SCH (07:59)
[2021-01-01] MEDS: Nicotine 21 MG PATCH TD SCH (08:00)
[2021-01-01] MEDS: HumaLOG 300 UNITS/3 ML VIAL SC PRN (16:16)
[2021-01-01] MEDS: Montelukast Sodium 10 mg Tablet PER TUBE SCH (20:18)
[2021-01-02] MEDS: Budesonide 0.5 MG/2 ML NEB NEB SCH ×2 (06:29→18:20)
[2021-01-02] MEDS: Aspirin Chewable 81 MG TAB PER TUBE SCH (10:27)
[2021-01-02] MEDS: predniSONE 20 MG TAB PO SCH (10:27)
[2021-01-02] MEDS: Acetaminophen 325 MG TAB PO PRN ×2 (10:35→20:36)
[2021-01-02] MEDS: Lisinopril 20 MG TAB PO SCH ×2 (10:36→20:37)
[2021-01-02] MEDS: Furosemide 40 MG TAB PO SCH (10:36)
[2021-01-02] MEDS: Apixaban 5 MG TAB PO SCH ×2 (10:50→20:36)
[2021-01-02] MEDS: Nicotine 21 MG PATCH TD SCH (10:50)
[2021-01-02 11:22] VITALS: BMI 55.3
[2021-01-02] MEDS: Montelukast Sodium 10 mg Tablet PER TUBE SCH (20:37)
[2021-01-03] MEDS: Senokot 8.6 MG TAB PO PRN (06:04)
[2021-01-03] MEDS: Budesonide 0.5 MG/2 ML NEB NEB SCH ×2 (06:58→18:56)
[2021-01-03] MEDS: predniSONE 20 MG TAB PO SCH (09:50)
[2021-01-03] MEDS: Aspirin Chewable 81 MG TAB PER TUBE SCH (09:50)
[2021-01-03] MEDS: Apixaban 5 MG TAB PO SCH ×2 (09:51→21:06)
[2021-01-03] MEDS: Furosemide 40 MG TAB PO SCH (09:51)
[2021-01-03] MEDS: Acetaminophen 325 MG TAB PO PRN ×2 (09:51→23:30)
[2021-01-03] MEDS: Lisinopril 20 MG TAB PO SCH ×3 (09:51→21:06)
[2021-01-03] MEDS: Nicotine 21 MG PATCH TD SCH (09:52)
[2021-01-03] MEDS: Montelukast Sodium 10 mg Tablet PER TUBE SCH (21:06)
[2021-01-04] MEDS: Furosemide 40 MG TAB PO SCH (06:05)
[2021-01-04] MEDS: Budesonide 0.5 MG/2 ML NEB NEB SCH ×2 (07:03→18:14)
[2021-01-04] MEDS: Aspirin Chewable 81 MG TAB PER TUBE SCH (08:12)
[2021-01-04] MEDS: Apixaban 5 MG TAB PO SCH ×2 (08:12→20:25)
[2021-01-04] MEDS: predniSONE 20 MG TAB PO SCH (08:13)
[2021-01-04] MEDS: Lisinopril 20 MG TAB PO SCH ×2 (08:13→20:25)
[2021-01-04] MEDS: Nicotine 21 MG PATCH TD SCH (08:15)
[2021-01-04] MEDS: Senokot 8.6 MG TAB PO PRN (14:40)
[2021-01-04] MEDS: Polyethylene Glycol 3350 17 GM Packet PO PRN (14:40)
[2021-01-04] MEDS: Acetaminophen 325 MG TAB PO PRN (20:24)
[2021-01-04] MEDS: Montelukast Sodium 10 mg Tablet PER TUBE SCH (20:25)
[2021-01-05] MEDS: Furosemide 40 MG TAB PO SCH (06:25)
[2021-01-05] MEDS: Budesonide 0.5 MG/2 ML NEB NEB SCH ×2 (08:23→18:40)
[2021-01-05] MEDS: Aspirin Chewable 81 MG TAB PER TUBE SCH (08:28)
[2021-01-05] MEDS: Apixaban 5 MG TAB PO SCH ×2 (08:29→20:32)
[2021-01-05] MEDS: Lisinopril 20 MG TAB PO SCH ×3 (08:29→20:32)
[2021-01-05] MEDS: predniSONE 20 MG TAB PO SCH (08:29)
[2021-01-05] MEDS: Nicotine 21 MG PATCH TD SCH (08:58)
[2021-01-05] MEDS: Senokot 8.6 MG TAB PO PRN (12:06)
[2021-01-05] MEDS: Polyethylene Glycol 3350 17 GM Packet PO PRN (12:08)
[2021-01-05] MEDS: Montelukast Sodium 10 mg Tablet PER TUBE SCH (20:32)
[2021-01-06] MEDS: Furosemide 40 MG TAB PO SCH (06:44)
[2021-01-06] MEDS: Budesonide 0.5 MG/2 ML NEB NEB SCH ×2 (06:48→19:06)
[2021-01-06] MEDS: Nicotine 21 MG PATCH TD SCH (08:50)
[2021-01-06] MEDS: predniSONE 20 MG TAB PO SCH (08:50)
[2021-01-06] MEDS: Apixaban 5 MG TAB PO SCH ×2 (08:50→20:47)
[2021-01-06] MEDS: Aspirin Chewable 81 MG TAB PER TUBE SCH (08:50)
[2021-01-06] MEDS: Lisinopril 20 MG TAB PO SCH ×2 (08:50→20:47)
[2021-01-06] MEDS: Acetaminophen 325 MG TAB PO PRN ×3 (08:56→23:34)
[2021-01-06] MEDS: Calcium Carbonate 500 MG ChewTAB PO PRN (17:34)
[2021-01-06] MEDS: Montelukast Sodium 10 mg Tablet PER TUBE SCH (20:47)
[2021-01-07] MEDS: Budesonide 0.5 MG/2 ML NEB NEB SCH ×2 (07:09→20:17)
[2021-01-07] MEDS: Aspirin Chewable 81 MG TAB PER TUBE SCH (08:39)
[2021-01-07] MEDS: Lisinopril 20 MG TAB PO SCH ×2 (08:39→20:12)
[2021-01-07] MEDS: Nicotine 21 MG PATCH TD SCH (08:40)
[2021-01-07] MEDS: Apixaban 5 MG TAB PO SCH ×2 (08:40→20:12)
[2021-01-07] MEDS: Furosemide 40 MG TAB PO SCH (08:40)
[2021-01-07] MEDS: predniSONE 20 MG TAB PO SCH (08:40)
[2021-01-07] MEDS: Montelukast Sodium 10 mg Tablet PER TUBE SCH (20:12)
[2021-01-07] MEDS: Acetaminophen 325 MG TAB PO PRN (20:12)
[2021-01-07] MEDS: Calcium Carbonate 500 MG ChewTAB PO PRN (20:12)
[2021-01-08] MEDS: Furosemide 40 MG TAB PO SCH (06:22)
[2021-01-08] MEDS: Budesonide 0.5 MG/2 ML NEB NEB SCH ×2 (07:47→18:49)
[2021-01-08] MEDS: Aspirin Chewable 81 MG TAB PER TUBE SCH (08:31)
[2021-01-08] MEDS: predniSONE 20 MG TAB PO SCH (08:31)
[2021-01-08] MEDS: Apixaban 5 MG TAB PO SCH ×2 (08:32→21:33)
[2021-01-08] MEDS: Lisinopril 20 MG TAB PO SCH ×2 (08:32→21:33)
[2021-01-08] MEDS: Nicotine 21 MG PATCH TD SCH (08:32)
[2021-01-08] MEDS: Acetaminophen 325 MG TAB PO PRN ×2 (08:57→23:48)
[2021-01-08] MEDS: Montelukast Sodium 10 mg Tablet PER TUBE SCH (21:33)
[2021-01-08] MEDS: Calcium Carbonate 500 MG ChewTAB PO PRN (23:49)
[2021-01-09] MEDS: Furosemide 40 MG TAB PO SCH ×2 (06:32→09:29)
[2021-01-09] MEDS: Budesonide 0.5 MG/2 ML NEB NEB SCH ×2 (07:25→19:06)
[2021-01-09] MEDS: Calcium Carbonate 500 MG ChewTAB PO PRN (09:27)
[2021-01-09] MEDS: Acetaminophen 325 MG TAB PO PRN ×2 (09:27→22:16)
[2021-01-09] MEDS: Aspirin Chewable 81 MG TAB PER TUBE SCH (09:28)
[2021-01-09] MEDS: Lisinopril 20 MG TAB PO SCH ×2 (09:28→22:16)
[2021-01-09] MEDS: Apixaban 5 MG TAB PO SCH ×2 (09:29→22:16)
[2021-01-09] MEDS: predniSONE 20 MG TAB PO SCH (09:29)
[2021-01-09] MEDS: Nicotine 21 MG PATCH TD SCH (11:30)
[2021-01-09] MEDS: Montelukast Sodium 10 mg Tablet PER TUBE SCH (22:16)
[2021-01-10] MEDS: predniSONE 20 MG TAB PO SCH (10:28)
[2021-01-10] MEDS: Lisinopril 20 MG TAB PO SCH ×2 (10:28→21:19)
[2021-01-10] MEDS: Acetaminophen 325 MG TAB PO PRN ×2 (10:28→21:20)
[2021-01-10] MEDS: Apixaban 5 MG TAB PO SCH ×2 (10:29→21:19)
[2021-01-10] MEDS: Aspirin Chewable 81 MG TAB PER TUBE SCH (10:30)
[2021-01-10] MEDS: Furosemide 40 MG TAB PO SCH (10:43)
[2021-01-10] MEDS: Nicotine 21 MG PATCH TD SCH (10:44)
[2021-01-10] MEDS: Budesonide 0.5 MG/2 ML NEB NEB SCH ×2 (11:29→19:11)
[2021-01-10] MEDS: Montelukast Sodium 10 mg Tablet PER TUBE SCH (21:19)
[2021-01-11] MEDS: Furosemide 40 MG TAB PO SCH (06:28)
[2021-01-11] MEDS: Budesonide 0.5 MG/2 ML NEB NEB SCH ×2 (07:28→19:21)
[2021-01-11] MEDS: Aspirin Chewable 81 MG TAB PER TUBE SCH (09:25)
[2021-01-11] MEDS: predniSONE 20 MG TAB PO SCH (09:26)
[2021-01-11] MEDS: Apixaban 5 MG TAB PO SCH ×2 (09:26→21:56)
[2021-01-11] MEDS: Lisinopril 20 MG TAB PO SCH ×2 (09:26→21:56)
[2021-01-11] MEDS: Nicotine 21 MG PATCH TD SCH (09:27)
[2021-01-11] MEDS: Montelukast Sodium 10 mg Tablet PER TUBE SCH (21:56)
[2021-01-11] MEDS: Acetaminophen 325 MG TAB PO PRN (22:00)
[2021-01-11] MEDS: Calcium Carbonate 500 MG ChewTAB PO PRN (22:00)
[2021-01-12] MEDS: Furosemide 40 MG TAB PO SCH (06:25)
[2021-01-12] MEDS: Budesonide 0.5 MG/2 ML NEB NEB SCH ×2 (07:26→21:21)
[2021-01-12] MEDS: Apixaban 5 MG TAB PO SCH ×2 (09:05→21:55)
[2021-01-12] MEDS: Aspirin Chewable 81 MG TAB PER TUBE SCH (09:05)
[2021-01-12] MEDS: Lisinopril 20 MG TAB PO SCH ×2 (09:05→21:54)
[2021-01-12] MEDS: Acetaminophen 325 MG TAB PO PRN ×2 (09:06→21:55)
[2021-01-12] MEDS: Nicotine 21 MG PATCH TD SCH (09:06)
[2021-01-12] MEDS: predniSONE 20 MG TAB PO SCH (09:06)
[2021-01-12] MEDS: Montelukast Sodium 10 mg Tablet PER TUBE SCH (21:55)
[2021-01-13 05:53] LABS: #Basophils 0.1 thou/uL (0.0-0.2); #Eosinphils 0.1 thou/uL (0.0-0.7); #Lymphocytes 2.3 thou/uL (1.20-3.40); #Monocytes 0.7 thou/uL (0.11-0.59); #Neutrophils 6.8 thou/uL (1.40-6.50); %Basophils 0.6 % (0.0-1.0); %Eosinophils 1.1 % (0.0-10.0); %Lymphocytes 22.9 % (21.0-51.0); %Monocytes 7.3 % (0.0-10.0); %Neutrophils 68.1 % (42.0-75.0); Hemoglobin 11.4 g/dL (12.0-16.0); Mean Corpuscular HGB CONC 31.2 g/dL (32.0-36.0); Mean Corpuscular Hemoglobin 26.9 pg (27.0-31.0); Mean Platelet Volume 6.9 fL (7.4-10.4); Platelet Count 303 thou/uL (130-400); RBC Distribution Width 16.1 % (11.5-14.5); Red Blood Cell (RBC) Count 4.26 mill/uL (4.20-5.40)
[2021-01-13 06:18] LABS: Anion Gap 13 mmol/L (10-20); BUN (Urea Nitrogen) 12 mg/dL (9.8-20.1); Calc. Creatinine Clearance 185 mL/min (70-130); Calcium 9.5 mg/dL (7.8-10.44); Carbon Dioxide 25 mmol/L (22-29); Chloride 103 mmol/L (98-107); Glucose 94 mg/dL (70-105); Sodium 138 mmol/L (136-145)
[2021-01-13] MEDS: Budesonide 0.5 MG/2 ML NEB NEB SCH ×2 (06:31→19:31)
[2021-01-13] MEDS: Furosemide 40 MG TAB PO SCH (06:55)
[2021-01-13] MEDS: Apixaban 5 MG TAB PO SCH ×2 (08:26→20:33)
[2021-01-13] MEDS: Nicotine 21 MG PATCH TD SCH (08:26)
[2021-01-13] MEDS: predniSONE 20 MG TAB PO SCH (08:26)
[2021-01-13] MEDS: Aspirin Chewable 81 MG TAB PER TUBE SCH (08:26)
[2021-01-13] MEDS: Lisinopril 20 MG TAB PO SCH ×2 (08:26→20:37)
[2021-01-13] MEDS ORDERED: Electrolyte Replacement Protocol 1 EACH FS PRN (09:00)
[2021-01-13] MEDS ORDERED: Potassium Chloride 20 MEQ TAB PO SCH ×2 (09:00→22:00)
[2021-01-13 14:49] LABS: Anion Gap 14 mmol/L (10-20); BUN (Urea Nitrogen) 12 mg/dL (9.8-20.1); Calc. Creatinine Clearance 153 mL/min (70-130); Carbon Dioxide 26 mmol/L (22-29); Chloride 102 mmol/L (98-107); Glucose 142 mg/dL (70-105); Magnesium 1.5 mg/dL (1.6-2.6); Potassium 3.3 mmol/L (3.5-5.1); Sodium 139 mmol/L (136-145)
[2021-01-13] MEDS: Montelukast Sodium 10 mg Tablet PER TUBE SCH (20:33)
[2021-01-13] MEDS ORDERED: Magnesium 2 GM/50 ML 2 GM in Premix Bag 1 BAG IVPB SCH (22:00)
[2021-01-13] MEDS: Acetaminophen 325 MG TAB PO PRN (22:09)
[2021-01-14 05:47] LABS: #Eosinphils 0.1 thou/uL (0.0-0.7); #Lymphocytes 2.5 thou/uL (1.20-3.40); #Monocytes 0.9 thou/uL (0.11-0.59); %Basophils 0.4 % (0.0-1.0); %Eosinophils 1.1 % (0.0-10.0); %Lymphocytes 23.5 % (21.0-51.0); %Monocytes 8.6 % (0.0-10.0); %Neutrophils 66.4 % (42.0-75.0); Hemoglobin 11.6 g/dL (12.0-16.0); Mean Corpuscular HGB CONC 32.9 g/dL (32.0-36.0); Mean Corpuscular Hemoglobin 28.2 pg (27.0-31.0); Mean Corpuscular Volume 85.9 fL (78.0-98.0); Mean Platelet Volume 7.1 fL (7.4-10.4); Platelet Count 310 thou/uL (130-400); RBC Distribution Width 16.1 % (11.5-14.5); Red Blood Cell (RBC) Count 4.13 mill/uL (4.20-5.40); White Blood Cell (WBC) Count 10.5 thou/uL (4.8-10.8)
[2021-01-14 06:09] LABS: Anion Gap 11 mmol/L (10-20); BUN (Urea Nitrogen) 14 mg/dL (9.8-20.1); Calc. Creatinine Clearance 201 mL/min (70-130); Calcium 9.2 mg/dL (7.8-10.44); Carbon Dioxide 25 mmol/L (22-29); Chloride 106 mmol/L (98-107); Glucose 106 mg/dL (70-105); Potassium 3.8 mmol/L (3.5-5.1); Sodium 138 mmol/L (136-145)
[2021-01-14] MEDS: Furosemide 40 MG TAB PO SCH (06:14)
[2021-01-14] MEDS: Budesonide 0.5 MG/2 ML NEB NEB SCH ×2 (07:29→18:56)
[2021-01-14] MEDS: predniSONE 20 MG TAB PO SCH (08:59)
[2021-01-14] MEDS: Apixaban 5 MG TAB PO SCH ×2 (08:59→22:23)
[2021-01-14] MEDS: Aspirin Chewable 81 MG TAB PER TUBE SCH (09:00)
[2021-01-14] MEDS: Lisinopril 20 MG TAB PO SCH ×2 (09:00→22:24)
[2021-01-14] MEDS: Nicotine 21 MG PATCH TD SCH (09:00)
[2021-01-14] MEDS: Acetaminophen 325 MG TAB PO PRN (09:03)
[2021-01-14] MEDS: Montelukast Sodium 10 mg Tablet PER TUBE SCH (22:23)
[2021-01-15 06:25] LABS: Magnesium 1.8 mg/dL (1.6-2.6)
[2021-01-15] MEDS ORDERED: Magnesium 2 GM/50 ML 2 GM in Premix Bag 1 BAG IVPB SCH (06:45)
[2021-01-15] MEDS: Budesonide 0.5 MG/2 ML NEB NEB SCH ×2 (07:03→18:54)
[2021-01-15] MEDS: Furosemide 40 MG TAB PO SCH (07:11)
[2021-01-15] MEDS: Lisinopril 20 MG TAB PO SCH ×2 (08:58→20:09)
[2021-01-15] MEDS: Apixaban 5 MG TAB PO SCH ×2 (08:58→20:09)
[2021-01-15] MEDS: Aspirin Chewable 81 MG TAB PER TUBE SCH (08:58)
[2021-01-15] MEDS: predniSONE 20 MG TAB PO SCH (08:58)
[2021-01-15] MEDS: Nicotine 21 MG PATCH TD SCH (09:01)
[2021-01-15] MEDS: Montelukast Sodium 10 mg Tablet PER TUBE SCH (20:09)
[2021-01-16] MEDS: Furosemide 40 MG TAB PO SCH (06:31)
[2021-01-16 07:08] LABS: Anion Gap 12 mmol/L (10-20); BUN (Urea Nitrogen) 12 mg/dL (9.8-20.1); Calc. Creatinine Clearance 191 mL/min (70-130); Calcium 9.4 mg/dL (7.8-10.44); Carbon Dioxide 25 mmol/L (22-29); Chloride 103 mmol/L (98-107); Glucose 113 mg/dL (70-105); Potassium 3.6 mmol/L (3.5-5.1); Sodium 136 mmol/L (136-145)
[2021-01-16] MEDS: Budesonide 0.5 MG/2 ML NEB NEB SCH ×2 (07:24→18:39)
[2021-01-16] MEDS: Apixaban 5 MG TAB PO SCH ×2 (08:54→20:57)
[2021-01-16] MEDS: Aspirin Chewable 81 MG TAB PER TUBE SCH (08:54)
[2021-01-16] MEDS: Lisinopril 20 MG TAB PO SCH ×2 (08:55→20:57)
[2021-01-16] MEDS: predniSONE 20 MG TAB PO SCH (08:55)
[2021-01-16] MEDS: Nicotine 21 MG PATCH TD SCH (08:55)
[2021-01-16] MEDS: Acetaminophen 325 MG TAB PO PRN ×2 (09:00→17:56)
[2021-01-16] MEDS: Montelukast Sodium 10 mg Tablet PER TUBE SCH (20:57)
[2021-01-17] MEDS: Budesonide 0.5 MG/2 ML NEB NEB SCH ×2 (07:35→18:57)
[2021-01-17] MEDS: Apixaban 5 MG TAB PO SCH ×2 (09:00→21:17)
[2021-01-17] MEDS: predniSONE 20 MG TAB PO SCH (09:00)
[2021-01-17] MEDS: Lisinopril 20 MG TAB PO SCH ×2 (09:00→21:17)
[2021-01-17] MEDS: Furosemide 40 MG TAB PO SCH (09:00)
[2021-01-17] MEDS: Aspirin Chewable 81 MG TAB PER TUBE SCH (09:00)
[2021-01-17] MEDS: Nicotine 21 MG PATCH TD SCH (09:01)
[2021-01-17] MEDS: Montelukast Sodium 10 mg Tablet PER TUBE SCH (21:17)
[2021-01-18] MEDS: Furosemide 40 MG TAB PO SCH (06:13)
[2021-01-18] MEDS: Budesonide 0.5 MG/2 ML NEB NEB SCH ×2 (07:10→19:08)
[2021-01-18] MEDS: Lisinopril 20 MG TAB PO SCH ×2 (09:12→20:39)
[2021-01-18] MEDS: Apixaban 5 MG TAB PO SCH ×2 (09:12→20:39)
[2021-01-18] MEDS: Aspirin Chewable 81 MG TAB PER TUBE SCH (09:12)
[2021-01-18] MEDS: predniSONE 20 MG TAB PO SCH (09:12)
[2021-01-18] MEDS: Nicotine 21 MG PATCH TD SCH (09:13)
[2021-01-18] MEDS: Acetaminophen 325 MG TAB PO PRN (09:21)
[2021-01-18] MEDS: Montelukast Sodium 10 mg Tablet PER TUBE SCH (20:39)
[2021-01-19] MEDS: Acetaminophen 325 MG TAB PO PRN ×2 (01:01→21:17)
[2021-01-19] MEDS: Furosemide 40 MG TAB PO SCH (05:58)
[2021-01-19 06:35] LABS: #Eosinphils 0.1 thou/uL (0.0-0.7); #Lymphocytes 1.9 thou/uL (1.20-3.40); #Monocytes 0.9 thou/uL (0.11-0.59); #Neutrophils 11.3 thou/uL (1.40-6.50); %Basophils 0.2 % (0.0-1.0); %Eosinophils 0.4 % (0.0-10.0); %Lymphocytes 13.6 % (21.0-51.0); %Monocytes 6.1 % (0.0-10.0); %Neutrophils 79.7 % (42.0-75.0); Hemoglobin 10.3 g/dL (12.0-16.0); Mean Corpuscular HGB CONC 32.7 g/dL (32.0-36.0); Mean Corpuscular Hemoglobin 28.4 pg (27.0-31.0); Mean Corpuscular Volume 86.7 fL (78.0-98.0); Mean Platelet Volume 7.2 fL (7.4-10.4); Platelet Count 278 thou/uL (130-400); RBC Distribution Width 16.5 % (11.5-14.5); Red Blood Cell (RBC) Count 3.62 mill/uL (4.20-5.40); White Blood Cell (WBC) Count 14.2 thou/uL (4.8-10.8)
[2021-01-19 06:54] LABS: Anion Gap 13 mmol/L (10-20); BUN (Urea Nitrogen) 15 mg/dL (9.8-20.1); Calc. Creatinine Clearance 0 mL/min (70-130); Calcium 9.5 mg/dL (7.8-10.44); Carbon Dioxide 24 mmol/L (22-29); Chloride 104 mmol/L (98-107); Glucose 141 mg/dL (70-105); Potassium 3.3 mmol/L (3.5-5.1); Sodium 138 mmol/L (136-145)
[2021-01-19] MEDS ORDERED: Potassium Chloride 20 MEQ TAB PO SCH (07:30)
[2021-01-19] MEDS: Budesonide 0.5 MG/2 ML NEB NEB SCH ×2 (08:03→20:10)
[2021-01-19] MEDS: predniSONE 20 MG TAB PO SCH (10:04)
[2021-01-19] MEDS: Apixaban 5 MG TAB PO SCH ×2 (10:04→21:17)
[2021-01-19] MEDS: Aspirin Chewable 81 MG TAB PER TUBE SCH (10:04)
[2021-01-19] MEDS: Nicotine 21 MG PATCH TD SCH (10:05)
[2021-01-19] MEDS: Lisinopril 20 MG TAB PO SCH ×2 (10:05→21:17)
[2021-01-19 13:31] LABS: Bacteria/HPF 4+ HPF (None Seen); Bilirubin Negative (Negative); Blood, Urine Negative (Negative); Clarity Clear (Clear); Glucose, Urine (Dipstick) Normal (Negative); Ketone, Urine Negative (Negative); Leukocyte 500 Leu/uL (Negative); Nitrite Negative (Negative); Protein, Urine (Dipstick) Negative (Neg-Trace); RBC/HPF 0-3 HPF (0-3); Specific Gravity, Urine 1.008 (1.002-1.036); Squamous Epithelial 0-3 HPF (0-3); Urobilinogen Normal mg/dL (Less than 2); WBC/HPF 21-50 HPF (0-3); pH, Urine 6.5 (5.0-9.0)
[2021-01-19 13:33] LABS: Urine Culture Reflex Yes Yes
[2021-01-19] MEDS: Montelukast Sodium 10 mg Tablet PER TUBE SCH (21:17)
[2021-01-20 05:59] LABS: #Eosinphils 0.1 thou/uL (0.0-0.7); #Lymphocytes 1.7 thou/uL (1.20-3.40); #Monocytes 1.3 thou/uL (0.11-0.59); #Neutrophils 11.5 thou/uL (1.40-6.50); %Basophils 0.1 % (0.0-1.0); %Eosinophils 0.5 % (0.0-10.0); %Lymphocytes 11.4 % (21.0-51.0); %Monocytes 8.7 % (0.0-10.0); %Neutrophils 79.4 % (42.0-75.0); Mean Corpuscular HGB CONC 31.7 g/dL (32.0-36.0); Mean Corpuscular Hemoglobin 27.3 pg (27.0-31.0); Mean Corpuscular Volume 86.2 fL (78.0-98.0); Mean Platelet Volume 7.2 fL (7.4-10.4); Platelet Count 273 thou/uL (130-400); RBC Distribution Width 16.5 % (11.5-14.5); Red Blood Cell (RBC) Count 4.04 mill/uL (4.20-5.40); White Blood Cell (WBC) Count 14.4 thou/uL (4.8-10.8)
[2021-01-20] MEDS: Furosemide 40 MG TAB PO SCH (06:13)
[2021-01-20 06:24] LABS: Anion Gap 10 mmol/L (10-20); BUN (Urea Nitrogen) 14 mg/dL (9.8-20.1); Calc. Creatinine Clearance 0 mL/min (70-130); Calcium 9.7 mg/dL (7.8-10.44); Carbon Dioxide 26 mmol/L (22-29); Chloride 104 mmol/L (98-107); Glucose 117 mg/dL (70-105); Potassium 3.9 mmol/L (3.5-5.1); Sodium 136 mmol/L (136-145)
[2021-01-20] MEDS: Budesonide 0.5 MG/2 ML NEB NEB SCH ×2 (07:26→19:46)
[2021-01-20] MEDS: Aspirin Chewable 81 MG TAB PER TUBE SCH (09:08)
[2021-01-20] MEDS: Apixaban 5 MG TAB PO SCH ×2 (09:08→20:37)
[2021-01-20] MEDS: Nicotine 21 MG PATCH TD SCH (09:09)
[2021-01-20] MEDS: predniSONE 20 MG TAB PO SCH (09:09)
[2021-01-20] MEDS: Lisinopril 20 MG TAB PO SCH ×2 (09:09→20:37)
[2021-01-20] MEDS: Acetaminophen 325 MG TAB PO PRN (09:11)
[2021-01-20 16:05] LABS: SARS-CoV-2 PCR by NAA Not Detected (NotDetected)
[2021-01-20] MEDS: Montelukast Sodium 10 mg Tablet PER TUBE SCH (20:37)
[2021-01-21] MEDS: Acetaminophen 325 MG TAB PO PRN ×3 (00:33→20:56)
[2021-01-21] MEDS: Furosemide 40 MG TAB PO SCH (05:47)
[2021-01-21] MEDS: Lisinopril 20 MG TAB PO SCH ×2 (09:44→20:57)
[2021-01-21] MEDS: Aspirin Chewable 81 MG TAB PER TUBE SCH (09:44)
[2021-01-21] MEDS: Apixaban 5 MG TAB PO SCH ×2 (09:44→20:56)
[2021-01-21] MEDS: Budesonide 0.5 MG/2 ML NEB NEB SCH ×2 (10:51→23:12)
[2021-01-21] MEDS: cefTRIAXone\\ROCEPHIN 1 GM in Sodium Chloride 0.9% 100 ML IVPB SCH (10:54)
[2021-01-21 11:20] LABS: #Lymphocytes 2.1 thou/uL (1.20-3.40); #Monocytes 1.2 thou/uL (0.11-0.59); #Neutrophils 12.1 thou/uL (1.40-6.50); %Basophils 0.1 % (0.0-1.0); %Eosinophils 0.3 % (0.0-10.0); %Lymphocytes 13.7 % (21.0-51.0); %Monocytes 7.9 % (0.0-10.0); %Neutrophils 77.9 % (42.0-75.0); Hemoglobin 11.7 g/dL (12.0-16.0); Mean Corpuscular HGB CONC 32.3 g/dL (32.0-36.0); Mean Corpuscular Hemoglobin 28.1 pg (27.0-31.0); Mean Corpuscular Volume 87.1 fL (78.0-98.0); Mean Platelet Volume 7.6 fL (7.4-10.4); Platelet Count 234 thou/uL (130-400); RBC Distribution Width 16.4 % (11.5-14.5); Red Blood Cell (RBC) Count 4.15 mill/uL (4.20-5.40); White Blood Cell (WBC) Count 15.5 thou/uL (4.8-10.8)
[2021-01-21] MEDS: Calcium Carbonate 500 MG ChewTAB PO PRN (20:54)
[2021-01-21] MEDS: Montelukast Sodium 10 mg Tablet PER TUBE SCH (20:57)
[2021-01-22] MEDS: Furosemide 40 MG TAB PO SCH (05:00)
[2021-01-22] MEDS: Budesonide 0.5 MG/2 ML NEB NEB SCH ×2 (07:09→18:54)
[2021-01-22] MEDS: Aspirin Chewable 81 MG TAB PER TUBE SCH (08:53)
[2021-01-22] MEDS: Apixaban 5 MG TAB PO SCH ×2 (08:53→20:46)
[2021-01-22] MEDS: Lisinopril 20 MG TAB PO SCH ×2 (08:53→20:46)
[2021-01-22] MEDS: cefTRIAXone\\ROCEPHIN 1 GM in Sodium Chloride 0.9% 100 ML IVPB SCH (08:57)
[2021-01-22 09:47] LABS: #Lymphocytes 1.9 thou/uL (1.20-3.40); #Monocytes 1.1 thou/uL (0.11-0.59); #Neutrophils 9.9 thou/uL (1.40-6.50); %Basophils 0.1 % (0.0-1.0); %Eosinophils 0.4 % (0.0-10.0); %Lymphocytes 14.5 % (21.0-51.0); %Monocytes 8.7 % (0.0-10.0); %Neutrophils 76.4 % (42.0-75.0); Hemoglobin 10.6 g/dL (12.0-16.0); Mean Corpuscular HGB CONC 32.3 g/dL (32.0-36.0); Mean Corpuscular Hemoglobin 27.9 pg (27.0-31.0); Mean Corpuscular Volume 86.5 fL (78.0-98.0); Mean Platelet Volume 7.6 fL (7.4-10.4); Platelet Count 251 thou/uL (130-400); RBC Distribution Width 16.1 % (11.5-14.5); Red Blood Cell (RBC) Count 3.81 mill/uL (4.20-5.40); White Blood Cell (WBC) Count 12.9 thou/uL (4.8-10.8)
[2021-01-22] MEDS: Montelukast Sodium 10 mg Tablet PER TUBE SCH (20:46)
[2021-01-22] MEDS: Acetaminophen 325 MG TAB PO PRN (20:52)
[2021-01-22] MEDS: Calcium Carbonate 500 MG ChewTAB PO PRN (20:53)
[2021-01-22] MEDS ORDERED: Ondansetron ORAL SOLN. 4 MG/5 ML UDCUP PO PRN (21:15)
[2021-01-23 05:54] LABS: #Eosinphils 0.1 thou/uL (0.0-0.7); #Monocytes 1.1 thou/uL (0.11-0.59); #Neutrophils 9.3 thou/uL (1.40-6.50); %Basophils 0.4 % (0.0-1.0); %Eosinophils 0.6 % (0.0-10.0); %Lymphocytes 15.7 % (21.0-51.0); %Monocytes 9.1 % (0.0-10.0); %Neutrophils 74.3 % (42.0-75.0); Hemoglobin 10.2 g/dL (12.0-16.0); Mean Corpuscular HGB CONC 31.8 g/dL (32.0-36.0); Mean Corpuscular Hemoglobin 27.5 pg (27.0-31.0); Mean Corpuscular Volume 86.4 fL (78.0-98.0); Mean Platelet Volume 7.4 fL (7.4-10.4); Platelet Count 261 thou/uL (130-400); RBC Distribution Width 15.9 % (11.5-14.5); Red Blood Cell (RBC) Count 3.73 mill/uL (4.20-5.40); White Blood Cell (WBC) Count 12.5 thou/uL (4.8-10.8)
[2021-01-23] MEDS: Budesonide 0.5 MG/2 ML NEB NEB SCH ×2 (07:17→18:57)
[2021-01-23] MEDS: Aspirin Chewable 81 MG TAB PER TUBE SCH (08:25)
[2021-01-23] MEDS: Lisinopril 20 MG TAB PO SCH ×2 (08:26→20:58)
[2021-01-23] MEDS: Furosemide 40 MG TAB PO SCH (08:26)
[2021-01-23] MEDS: Apixaban 5 MG TAB PO SCH ×2 (08:26→20:58)
[2021-01-23] MEDS: cefTRIAXone\\ROCEPHIN 1 GM in Sodium Chloride 0.9% 100 ML IVPB SCH (08:26)
[2021-01-23] MEDS: Montelukast Sodium 10 mg Tablet PER TUBE SCH (20:58)
[2021-01-24 05:33] LABS: #Lymphocytes 2.3 thou/uL (1.20-3.40); #Monocytes 0.9 thou/uL (0.11-0.59); #Neutrophils 7.6 thou/uL (1.40-6.50); %Eosinophils 0.4 % (0.0-10.0); %Lymphocytes 21.2 % (21.0-51.0); %Monocytes 8.1 % (0.0-10.0); %Neutrophils 70.3 % (42.0-75.0); Hemoglobin 10.5 g/dL (12.0-16.0); Mean Corpuscular HGB CONC 33.7 g/dL (32.0-36.0); Mean Corpuscular Volume 86.1 fL (78.0-98.0); Mean Platelet Volume 7.2 fL (7.4-10.4); Platelet Count 287 thou/uL (130-400); Red Blood Cell (RBC) Count 3.62 mill/uL (4.20-5.40); White Blood Cell (WBC) Count 10.8 thou/uL (4.8-10.8)
[2021-01-24] MEDS: Budesonide 0.5 MG/2 ML NEB NEB SCH ×2 (07:19→19:17)
[2021-01-24] MEDS: Apixaban 5 MG TAB PO SCH ×2 (09:12→21:16)
[2021-01-24] MEDS: Furosemide 40 MG TAB PO SCH (09:12)
[2021-01-24] MEDS: Aspirin Chewable 81 MG TAB PER TUBE SCH (09:12)
[2021-01-24] MEDS: cefTRIAXone\\ROCEPHIN 1 GM in Sodium Chloride 0.9% 100 ML IVPB SCH (09:13)
[2021-01-24] MEDS: Lisinopril 20 MG TAB PO SCH ×2 (09:15→21:15)
[2021-01-24] MEDS: Cefdinir 300 MG CAP PO SCH ×2 (18:20→21:15)
[2021-01-24] MEDS: Montelukast Sodium 10 mg Tablet PER TUBE SCH (21:15)
[2021-01-25] MEDS: Furosemide 40 MG TAB PO SCH (08:39)
[2021-01-25] MEDS: Budesonide 0.5 MG/2 ML NEB NEB SCH ×2 (09:00→18:48)
[2021-01-25] MEDS: Calcium Carbonate 500 MG ChewTAB PO PRN (09:04)
[2021-01-25] MEDS: Cefdinir 300 MG CAP PO SCH ×2 (09:04→21:11)
[2021-01-25] MEDS: Lisinopril 20 MG TAB PO SCH ×2 (09:05→21:11)
[2021-01-25] MEDS: Apixaban 5 MG TAB PO SCH ×2 (09:05→21:11)
[2021-01-25] MEDS: Aspirin Chewable 81 MG TAB PER TUBE SCH (09:05)
[2021-01-25] MEDS: Acetaminophen 325 MG TAB PO PRN (09:05)
[2021-01-25] MEDS: Montelukast Sodium 10 mg Tablet PER TUBE SCH (21:11)
[2021-01-26] MEDS: Lisinopril 20 MG TAB PO SCH ×2 (08:43→20:59)
[2021-01-26] MEDS: Aspirin Chewable 81 MG TAB PER TUBE SCH (08:43)
[2021-01-26] MEDS: Apixaban 5 MG TAB PO SCH ×2 (08:43→20:59)
[2021-01-26] MEDS: Cefdinir 300 MG CAP PO SCH (08:43)
[2021-01-26] MEDS: Furosemide 40 MG TAB PO SCH (08:43)
[2021-01-26] MEDS: Budesonide 0.5 MG/2 ML NEB NEB SCH ×2 (11:50→19:59)
[2021-01-26] MEDS: Montelukast Sodium 10 mg Tablet PER TUBE SCH (20:59)
[2021-01-27] MEDS: Budesonide 0.5 MG/2 ML NEB NEB SCH ×2 (06:58→19:23)
[2021-01-27] MEDS: Lisinopril 20 MG TAB PO SCH ×2 (08:47→20:46)
[2021-01-27] MEDS: Apixaban 5 MG TAB PO SCH ×2 (08:47→20:47)
[2021-01-27] MEDS: Furosemide 40 MG TAB PO SCH (08:47)
[2021-01-27] MEDS: Aspirin Chewable 81 MG TAB PER TUBE SCH (08:47)
[2021-01-27] MEDS: Acetaminophen 325 MG TAB PO PRN ×2 (08:49→20:51)
[2021-01-27] MEDS: Montelukast Sodium 10 mg Tablet PER TUBE SCH (20:45)
[2021-01-27 23:02] LABS: SARS-CoV-2 PCR by NAA Not Detected (NotDetected)
[2021-01-28 05:39] LABS: #Eosinphils 0.2 thou/uL (0.0-0.7); #Lymphocytes 2.4 thou/uL (1.20-3.40); #Neutrophils 8.1 thou/uL (1.40-6.50); %Basophils 0.2 % (0.0-1.0); %Eosinophils 1.3 % (0.0-10.0); %Lymphocytes 20.6 % (21.0-51.0); %Monocytes 8.7 % (0.0-10.0); %Neutrophils 69.2 % (42.0-75.0); Hemoglobin 10.3 g/dL (12.0-16.0); Mean Corpuscular HGB CONC 32.7 g/dL (32.0-36.0); Mean Corpuscular Hemoglobin 28.5 pg (27.0-31.0); Mean Corpuscular Volume 87.1 fL (78.0-98.0); Platelet Count 379 thou/uL (130-400); RBC Distribution Width 15.9 % (11.5-14.5); White Blood Cell (WBC) Count 11.7 thou/uL (4.8-10.8)
[2021-01-28 05:59] LABS: Anion Gap 14 mmol/L (10-20); BUN (Urea Nitrogen) 7 mg/dL (9.8-20.1); Calc. Creatinine Clearance 174 mL/min (70-130); Calcium 9.6 mg/dL (7.8-10.44); Carbon Dioxide 24 mmol/L (22-29); Chloride 102 mmol/L (98-107); Glucose 127 mg/dL (70-105); Potassium 3.8 mmol/L (3.5-5.1); Sodium 136 mmol/L (136-145)
[2021-01-28] MEDS: Furosemide 40 MG TAB PO SCH (06:38)
[2021-01-28] MEDS: Budesonide 0.5 MG/2 ML NEB NEB SCH ×2 (07:54→20:02)
[2021-01-28] MEDS: Aspirin Chewable 81 MG TAB PER TUBE SCH (08:27)
[2021-01-28] MEDS: Lisinopril 20 MG TAB PO SCH ×2 (08:27→20:21)
[2021-01-28] MEDS: Apixaban 5 MG TAB PO SCH ×2 (08:28→20:21)
[2021-01-28] MEDS: Montelukast Sodium 10 mg Tablet PER TUBE SCH (20:21)
[2021-01-28] MEDS: Acetaminophen 325 MG TAB PO PRN (20:21)
[2021-01-29] MEDS: Budesonide 0.5 MG/2 ML NEB NEB SCH ×2 (06:56→19:51)
[2021-01-29] MEDS: Apixaban 5 MG TAB PO SCH ×2 (10:01→20:03)
[2021-01-29] MEDS: Lisinopril 20 MG TAB PO SCH ×2 (10:01→20:04)
[2021-01-29] MEDS: Furosemide 40 MG TAB PO SCH (10:01)
[2021-01-29] MEDS: Aspirin Chewable 81 MG TAB PER TUBE SCH (10:01)
[2021-01-29] MEDS: Montelukast Sodium 10 mg Tablet PER TUBE SCH (20:03)
[2021-01-29] MEDS: Acetaminophen 325 MG TAB PO PRN (20:04)
[2021-01-30] MEDS: Furosemide 40 MG TAB PO SCH (06:30)
[2021-01-30] MEDS: Aspirin Chewable 81 MG TAB PER TUBE SCH (07:55)
[2021-01-30] MEDS: Lisinopril 20 MG TAB PO SCH ×2 (07:55→19:59)
[2021-01-30] MEDS: Apixaban 5 MG TAB PO SCH ×2 (07:56→19:58)
[2021-01-30] MEDS: Budesonide 0.5 MG/2 ML NEB NEB SCH ×2 (12:19→18:49)
[2021-01-30] MEDS: Montelukast Sodium 10 mg Tablet PER TUBE SCH (19:59)
[2021-01-31] MEDS: Lisinopril 20 MG TAB PO SCH ×2 (07:37→21:58)
[2021-01-31] MEDS: Apixaban 5 MG TAB PO SCH ×2 (07:37→21:57)
[2021-01-31] MEDS: Aspirin Chewable 81 MG TAB PER TUBE SCH (07:38)
[2021-01-31] MEDS: Furosemide 40 MG TAB PO SCH (07:38)
[2021-01-31] MEDS: Budesonide 0.5 MG/2 ML NEB NEB SCH ×2 (08:55→19:09)
[2021-01-31] MEDS: Montelukast Sodium 10 mg Tablet PER TUBE SCH (21:57)
[2021-02-01] MEDS: Acetaminophen 325 MG TAB PO PRN (02:24)
[2021-02-01] MEDS: Furosemide 40 MG TAB PO SCH (06:57)
[2021-02-01] MEDS: Budesonide 0.5 MG/2 ML NEB NEB SCH ×2 (07:51→20:28)
[2021-02-01] MEDS: Apixaban 5 MG TAB PO SCH ×2 (08:58→21:57)
[2021-02-01] MEDS: Lisinopril 20 MG TAB PO SCH ×2 (08:58→21:56)
[2021-02-01] MEDS: Aspirin Chewable 81 MG TAB PER TUBE SCH (08:58)
[2021-02-01] MEDS: Montelukast Sodium 10 mg Tablet PER TUBE SCH (21:57)
[2021-02-02] MEDS: Furosemide 40 MG TAB PO SCH (06:40)
[2021-02-02] MEDS: Budesonide 0.5 MG/2 ML NEB NEB SCH ×2 (08:04→17:21)
[2021-02-02] MEDS: Lisinopril 20 MG TAB PO SCH ×2 (10:22→21:59)
[2021-02-02] MEDS: Aspirin Chewable 81 MG TAB PER TUBE SCH (10:23)
[2021-02-02] MEDS: Apixaban 5 MG TAB PO SCH ×2 (10:23→21:59)
[2021-02-02] MEDS: Montelukast Sodium 10 mg Tablet PER TUBE SCH (21:59)
[2021-02-03] MEDS: Furosemide 40 MG TAB PO SCH (06:15)
[2021-02-03] MEDS: Lisinopril 20 MG TAB PO SCH ×2 (09:45→20:53)
[2021-02-03] MEDS: Aspirin Chewable 81 MG TAB PER TUBE SCH (09:45)
[2021-02-03] MEDS: Apixaban 5 MG TAB PO SCH ×2 (09:45→20:53)
[2021-02-03] MEDS: Acetaminophen 325 MG TAB PO PRN (09:54)
[2021-02-03] MEDS: Budesonide 0.5 MG/2 ML NEB NEB SCH ×2 (10:33→19:45)
[2021-02-03] MEDS: Montelukast Sodium 10 mg Tablet PER TUBE SCH (20:53)
[2021-02-04] MEDS: Aspirin Chewable 81 MG TAB PER TUBE SCH (08:12)
[2021-02-04] MEDS: Apixaban 5 MG TAB PO SCH ×2 (08:12→21:47)
[2021-02-04] MEDS: Furosemide 40 MG TAB PO SCH (08:12)
[2021-02-04] MEDS: Lisinopril 20 MG TAB PO SCH ×2 (08:12→21:46)
[2021-02-04] MEDS: Budesonide 0.5 MG/2 ML NEB NEB SCH (09:51)
[2021-02-04 12:48] LABS: SARS-CoV-2 PCR by NAA Not Detected (NotDetected)
[2021-02-04] MEDS ORDERED: Atorvastatin Calcium 40 MG TAB PO SCH (21:00)
[2021-02-04] MEDS: Montelukast Sodium 10 mg Tablet PER TUBE SCH (21:46)
[2021-02-04] MEDS: Carvedilol 6.25 MG TAB PO SCH (21:47)
[2021-02-05 08:30] VITALS: BP 114/68; TEMP 98
[2021-02-05] MEDS: Aspirin Chewable 81 MG TAB PER TUBE SCH (09:28)
[2021-02-05] MEDS: Carvedilol 6.25 MG TAB PO SCH (09:28)
[2021-02-05] MEDS: Apixaban 5 MG TAB PO SCH (09:28)
[2021-02-05] MEDS: Lisinopril 20 MG TAB PO SCH (09:28)
[2021-02-05] MEDS: Furosemide 40 MG TAB PO SCH (09:28)
== END 2021-02-05 10:18 | DRG 207 ==
LOC: ERS 16:05 → ERHOLD 18:26 → CCU 19:38 → 2NO 12-25 20:16 → SURG B 12-29 15:47
PROVIDERS: ADMIT Internal Medicine; ATTEND Internal Medicine
PROC: 5A1955Z Respiratory Ventilation, Greater than 96 Consecutive Hours (ICD-10-PCS; principal; 2020-12-13)
PROC: 02HV33Z Insertion of Infusion Device into Superior Vena Cava, Percutaneous Approach (ICD-10-PCS; 2020-12-13)
PROC: 0D9670Z Drainage of Stomach with Drainage Device, Via Natural or Artificial Opening (ICD-10-PCS; 2020-12-13)
PROC: 3E033XZ Introduction of Vasopressor into Peripheral Vein, Percutaneous Approach (ICD-10-PCS; 2020-12-13)
PROC: B548ZZA Ultrasonography of Superior Vena Cava, Guidance (ICD-10-PCS; 2020-12-13)
PROC: 5A09557 Assistance with Respiratory Ventilation, Greater than 96 Consecutive Hours, Continuous Positive Airway Pressure (ICD-10-PCS; 2020-12-22)
DX: J44.1 Chronic obstructive pulmonary disease with (acute) exacerbation (principal); I21.A1 Myocardial infarction type 2; J96.01 Acute respiratory failure with hypoxia; J69.0 Pneumonitis due to inhalation of food and vomit; J96.02 Acute respiratory failure with hypercapnia; I50.43 Acute on chronic combined systolic (congestive) and diastolic (congestive) heart failure; I31.3 Pericardial effusion (noninflammatory); N39.0 Urinary tract infection, site not specified; E87.1 Hypo-osmolality and hyponatremia; E87.3 Alkalosis; Z68.44 Body mass index [BMI] 60.0-69.9, adult; I11.0 Hypertensive heart disease with heart failure; R91.1 Solitary pulmonary nodule; Z20.822 Contact with and (suspected) exposure to COVID-19; E66.01 Morbid (severe) obesity due to excess calories; I25.10 Atherosclerotic heart disease of native coronary artery without angina pectoris; F17.218 Nicotine dependence, cigarettes, with other nicotine-induced disorders; R73.9 Hyperglycemia, unspecified; D64.9 Anemia, unspecified; E78.5 Hyperlipidemia, unspecified; I48.0 Paroxysmal atrial fibrillation; R00.1 Bradycardia, unspecified; E87.6 Hypokalemia; K59.00 Constipation, unspecified; R00.0 Tachycardia, unspecified; Z78.1 Physical restraint status; I25.2 Old myocardial infarction; Z79.82 Long term (current) use of aspirin; Z79.51 Long term (current) use of inhaled steroids; Z79.899 Other long term (current) drug therapy; Z79.52 Long term (current) use of systemic steroids; Z95.5 Presence of coronary angioplasty implant and graft; Z72.89 Other problems related to lifestyle
CPT/HCPCS: 0240U; 36415; 36416; 36556; 36600; 51702; 71045; 71275; 80048; 80053; 81001; 82553; 82805; 83036; 83605; 83735; 83880; 84484; 85025; 87040; 87070; 87077; 87086; 87186; 87205; 93005; 93010; 93306; 94002; 94003; 94640; 94660; 96365; 96366; 96367; 96374; 96375; 99292; C9113; J0360; J0456; J0692; J0696; J1120; J1160; J1650; J1815; J1940; J2060; J2250; J2270; J2704; J2765; J2920; J2930; J3010; J3411; J3475; J3480; J3490; J7050; J7512; J7620; J7626; Q9967; U0003; U0005

== ENCOUNTER 2021-11-17 14:37 | Outpatient (CLI) | payer OTHER | END 2021-11-17 14:38 | disposition home or self-care (01) | LOC: BICRAD 14:37 | PROVIDERS: ATTEND Internal Medicine | DX: Z02.71 Encounter for disability determination (principal); I51.7 Cardiomegaly | CPT/HCPCS: 71046 ==